=== PATIENT | female | born 1955 | race Caucasian/White ===

== ENCOUNTER 2016-07-05 09:31 | Emergency (ER) | payer BC ==
--- NOTE | 2016-07-05 10:02 | EDM.PDOC ---
ED HPI DIZZINESS - General Chief Complaint: Genitourinary Problem Stated Complaint: LIMITED MOBILITY Time Seen by Provider: 07/05/16 09:53 Source of Information: Reports: Patient (patient is not very verbal, most of the history obtained today is from her ), Family (), RN notes reviewed - History of Present Illness INITIAL COMMENTS - FREE TEXT/NARRATIVE: 61-year-old female brought in by with concerns of possible bladder infection. She has not voided much in the last 12-24 hours. She does have history of bladder infection. She is apparently having some lower bladder pressure or discomfort. states that this she also seems more unsteady on her feet, less energy than usual. Unfortunately her health has really declined over the past year or 2. she ambulates with a walker. Unfortunately she spends a lot of time in bed or sitting. Her is providing total care. SHe does have history of depression, perhaps additional mental health illnesses well. Looking at her meds she is very heavily medicated. states meds have been prescribed by local psychiatrist at [facility]. - Related Data Allergies/ADRs: Allergies Allergy/AdvReac Type Severity Reaction Status Date / Time celecoxib [From Celebrex] Allergy Other Verified 07/05/16 09:40 clarithromycin [From Biaxin] Allergy Other Verified 07/05/16 09:40 lisinopril Allergy Cough Verified 07/05/16 09:40 HCTZ Allergy Other Uncoded 07/05/16 09:53 Home Meds: Home Meds traZODone 150 mg PO BEDTIME 02/13/16 [History] Amitriptyline HCl 75 mg PO QPM 06/19/16 [History] ClonazePAM [KlonoPIN] 1.5 mg PO BID 06/19/16 [History] ClonazePAM [KlonoPIN] 2 mg PO QPM 06/19/16 [History] Losartan [Cozaar] 50 mg PO DAILY 06/19/16 [History] PARoxetine HCl [Paroxetine HCl] 30 mg PO DAILY 06/19/16 [History] Cholecalciferol (Vitamin D3) [Vitamin D3] 2,000 unit PO DAILY 07/05/16 [History] Fish Oil/[place]-3 Fatty Acids [Fish Oil 1,000 MG] 1,000 mg PO BID 07/05/16 [ History] Lutein/Minerals/Vit A,C & E [Ocuvite] 1 tab PO DAILY 07/05/16 [History] Past Medical History HEENT History: Reports: Impaired vision Other HEENT History: Wears glasses Cardiovascular History: Reports: High cholesterol, 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: Psychiatric History: Reports: Anxiety, Depression, Emotional problems - Past Surgical History Female Surgical History: Reports: section Social & Family History - Family History Family Medical History: Noncontributory - Tobacco Use Smoking Status *Q: Never Smoker Used Tobacco, but Quit: Yes Second Hand Smoke Exposure: No - Caffeine Use Caffeine Use: Reports: Coffee - Recreational Drug Use Recreational Drug Use: No - Living Situation & Occupation Living situation: Reports: , with spouse 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) ED ROS GENERAL - Review of Systems Review Of Systems: See Below Constitutional: Denies: fever, chills HEENT: Reports: No symptoms Respiratory: Denies: shortness of breath, hemoptysis GI/Abdominal: Denies: Abdominal pain, Nausea, Vomiting Musculoskeletal: Denies: neck pain, joint pain Skin: Denies: rash Neurological: Reports: dizziness, weakness (generalized) ED EXAM, DIZZINESS - Physical Exam Exam: See Below General Appearance: alert, other (not very verbal, does answer a few yes and no questions, content to let her do most of the talking) Eye Exam: bilateral eye: PERRL Throat/Mouth: Normal inspection, Normal oropharynx Head Exam: atraumatic Neck: normal inspection Respiratory/Chest: no respiratory distress, lungs clear, normal breath sounds Cardiovascular: regular rate, rhythm GI/Abdominal: soft, non tender. No: guarding Neurological: no motor/sensory deficits, other (awake, cooperative with exam) Extremities: normal inspection, normal range of motion. No: pedal edema Psychiatric: flat affect Skin Exam: Warm, Dry, Normal color Course - Vital Signs Last Recorded V/S: Last Vital Signs Temp 97.1 F 07/05/16 09:40 Pulse 68 07/05/16 12:10 Resp 15 07/05/16 12:10 BP 140/70 07/05/16 12:10 Pulse Ox 97 07/05/16 12:10 - Orders/Labs/Meds Orders: Active Orders 24 hr Category Date Time Status Tovar Catheter Insertion [Insert Urinary Catheter] [OM. Care 07/05/16 11:05 Ordered PC] Q24H Urinary Catheter Assessment [RC] ASDIRECTED Care 07/05/16 11:24 Active Labs: Laboratory Tests 07/05/16 07/05/16 07/05/16 Range/Units 10:11 10:11 10:20 WBC 5.33 (3.98-10.04) K/mm3 RBC 4.55 (3.98-5.22) M/mm3 Hgb 14.3 (11.2-15.7) gm/L Hct 43.7 (34.1-44.9) % MCV 96.0 H (79.4-94.8) fl MCH 31.4 (25.6-32.2) pg MCHC 32.7 (32.2-35.5) g/dl RDW Std Deviation 46.1 (36.4-46.3) fL Plt Count 282 (182-369) K/mm3 MPV 10.4 (9.4-12.3) fl Neut % (Auto) 62.6 (34.0-71.1) % Lymph % (Auto) 25.9 (19.3-51.7) % Mckean % (Auto) 7.7 (4.7-12.5) % Eos % (Auto) 3.0 (0.7-5.8) Baso % (Auto) 0.6 (0.1-1.2) % Neut # 3.34 (1.56-6.13) K/mm3 Lymph # 1.38 (1.18-3.74) K/mm3 Mckean # 0.41 H (0.24-0.36) K/mm3 Eos # 0.16 (0.04-0.36) K/mm3 Baso # 0.03 (0.01-0.08) K/mm3 Sodium 140 (136-145) mEq/L Potassium 4.2 (3.5-5.1) mEq/L Chloride 105 (98-107) mEq/L Carbon Dioxide 28 (21-32) mEq/L Anion Gap 11.2 (5-15) BUN 15 (7-18) mg/dL Creatinine 0.7 (0.55-1.02) mg/dL Est Cr Clr Drug Dosing 74.72 mL/min Estimated GFR (MDRD) > 60 (>60) mL/min BUN/Creatinine Ratio 21.4 H (14-18) Glucose 98 (74-106) mg/dL Calcium 9.3 (8.5-10.1) mg/dL Total Bilirubin 0.5 (0.2-1.0) mg/dL AST 12 L (15-37) U/L ALT 21 (14-59) U/L Alkaline Phosphatase 71 (46-116) U/L Total Protein 7.1 (6.4-8.2) g/dl Albumin 3.6 (3.4-5.0) g/dl Globulin 3.5 gm/dL Albumin/Globulin Ratio 1.0 (1-2) Urine Color Yellow (Yellow) Urine Appearance Clear (Clear) Urine pH 7.0 (5.0-8.0) Ur Specific [place] 1.025 (1.005-1.030) Urine Protein Trace H (Negative) Urine Glucose (UA) Negative (Negative) Urine Ketones Trace H (Negative) Urine Occult Blood Negative (Negative) Urine Nitrite Negative (Negative) Urine Bilirubin Negative (Negative) Urine Urobilinogen 0.2 (0.2-1.0) Ur Leukocyte Esterase Negative (Negative) Urine RBC 0-5 (0-5) /hpf Urine WBC 0-5 (0-5) /hpf Ur Squamous Epith Cells 0-5 (0-5) /hpf Urine Bacteria Few (FEW) /hpf Urine Mucus Few (FEW) /hpf - Re-Assessments/Exams Free Text/Narrative Re-Assessment/Exam: 07/05/16 13:42. her urinalysis I had ordered catheter UA with anticipated difficulty providing a sterile specimen on her own. Her nurses got about 900 cc out when I have them remove the catheter. Bladder scan showed that she still had 6 700 cc of urine in the bladder. We waited 15 minutes and then inserted a Tovar, further removing 250 cc of urine about every 15 minutes. We left the Tovar in place to allow her bladder to shrink down over the next few days. Suspect her urinary retention is medication related. She's on very high dose of klonopin and then also taking amitriptyline, trazodone at bedtime in addition to her other medications. I visited with her and some of her lethargy, drowsiness and weakness is almost for sure related to medication effect. We are going to try stopping her afternoon dose of the klonapin and move her bedtime dose each up to 6:00. And then have trazodone at bedtime if needed. She was on a total of 5 mg klonapin daily plus 150 mg trazodone at bedtime in addition to her other meds. We'll send her home with the indwelling Tovar with a leg bag. SHe does use a walker for ambulation. SHe has a followup appointment with her Psychiatrist this coming Thursday 3 days from now. Discharge instructions as documented Departure - Departure Time of Disposition: 12:05 Disposition: Home, Self-Care 01 Condition: fair Clinical Impression: Urinary retention Instructions: Acute Urinary Retention, Female, [id number] Referrals: Amanda Herman, TELLER MANAGER [Primary Care Provider] - Forms: ED Department Discharge Additional Instructions: with the urinary retention discovered today it will be best to have an indwelling Tovar catheter for now, drain at 2-3 times daily as needed. Followup clinic Thursday or Thursday for planned catheter removal, continue to drink plenty of water, eat regular meals and snacks to maintain nutrition, continue to use walker when standing or walking. stop the 2:00 dose of the Klonopin as Jayashree does appear to be overmedicated at this time. You can have her take the evening dose of Clonopin at around 6 PM and then the trazodone at bedtime if needed for sleep. Followup with Dr. Ramachandran Thursday as planned, return to ED as needed - My Orders Last 24 Hours: My Active Orders 07/05/16 11:05 Tovar Catheter Insertion [Insert Urinary Catheter] [OM.PC] Q24H 07/05/16 11:24 Urinary Catheter Assessment [RC] ASDIRECTED - Assessment/Plan Last 24 Hours: My Active Orders 07/05/16 11:05 Tovar Catheter Insertion [Insert Urinary Catheter] [OM.PC] Q24H 07/05/16 11:24 Urinary Catheter Assessment [RC] ASDIRECTED
[2016-07-05 12:41] VITALS: BP 140/70
== END 2016-07-05 12:18 | disposition home or self-care (01) ==
LOC: JD.ED 09:31
DX: R33.9 Retention of urine, unspecified (principal); R42 Dizziness and giddiness; E78.00 Pure hypercholesterolemia, unspecified; I10 Essential (primary) hypertension; R53.1 Weakness; Z88.6 Allergy status to analgesic agent; Z88.1 Allergy status to other antibiotic agents
CPT/HCPCS: 36415; 51701; 51702; 51798; 80053; 81001; 85025; 99284; P9612; 99282

== ENCOUNTER 2016-07-05 17:49 | Emergency (ER) | payer BC ==
[2016-07-05 18:09] VITALS: BP 145/83
[2016-07-05] MEDS ORDERED: Sodium Chloride 0.9% 10 ML Syringe FLUSH PRN (18:16)
--- NOTE | 2016-07-05 18:44 | EDM.PDOC ---
ED HPI SEIZURE COMPLAINT - General Chief Complaint: Neurological Problem Stated Complaint: POSS SEIZURE AT HOME Time Seen by Provider: 07/05/16 17:52 Source of Information: Reports: Patient, Family (spouse), Old records, RN notes reviewed - History of Present Illness INITIAL COMMENTS - FREE TEXT/NARRATIVE: 61-year-old female brought back to the ED this evening by after suffering what appeared to be 2 brief seizures while at home. She had been a patient here in the ED this past morning brought in for evaluation of increased weakness, nonspecific dizziness and continued deterioration of her mental and physical health over the past couple of months and to some extent over the past 6-12 months. This past morning her lab work was normal. However she was found to have urinary retention. A Tovar catheter was placed and she did go home with a leg bag. See that record for details. This afternoon about 45 minutes ago she was sitting in her recliner when her states her body "stiffened and then there was jerking of her arms and legs for about 15-30 seconds, a brief pause and then this did occur again in similar fashion. She had no tongue injury. He states that she has had tremor type symptoms in the past, but to his knowledge she has never had a prior seizure. She was admitted to [facility] about 2 weeks ago for evaluation of her progressive weakness as well as diminishing speech and mental health status.He states that she did have head CT, MRI and did have a Neurology consultation. He states that they really did not come up with any definitive diagnosis. at home today after discharge in the ED she did eat a six-inch sub sandwich. She has been drinking some fluid. He states that she has been able to stand with the help of walker and him assisting but that this has been difficult, in general her overall strength, speach and cognitive ability has markedly declined from her hospital admission 2 weeks ago. - Related Data Allergies/ADRs: Allergies Allergy/AdvReac Type Severity Reaction Status Date / Time celecoxib [From Celebrex] Allergy Other Verified 07/05/16 17:58 clarithromycin [From Biaxin] Allergy Other Verified 07/05/16 17:58 lisinopril Allergy Cough Verified 07/05/16 17:58 HCTZ Allergy Other Uncoded 07/05/16 09:53 Home Meds: Home Meds traZODone 150 mg PO BEDTIME 02/13/16 [History] Amitriptyline HCl 75 mg PO QPM 06/19/16 [History] ClonazePAM [KlonoPIN] 1.5 mg PO BID 06/19/16 [History] ClonazePAM [KlonoPIN] 2 mg PO QPM 06/19/16 [History] Losartan [Cozaar] 50 mg PO DAILY 06/19/16 [History] PARoxetine HCl [Paroxetine HCl] 30 mg PO DAILY 06/19/16 [History] Cholecalciferol (Vitamin D3) [Vitamin D3] 2,000 unit PO DAILY 07/05/16 [History] Fish Oil/[place]-3 Fatty Acids [Fish Oil 1,000 MG] 1,000 mg PO BID 07/05/16 [ History] Lutein/Minerals/Vit A,C & E [Ocuvite] 1 tab PO DAILY 07/05/16 [History] Past Medical History HEENT History: Reports: Impaired vision Other HEENT History: Wears glasses Cardiovascular History: Reports: High cholesterol, 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: Psychiatric History: Reports: Anxiety, Depression, Emotional problems - Past Surgical History Female Surgical History: Reports: section Social & Family History - Family History Family Medical History: Noncontributory - Tobacco Use Smoking Status *Q: Never Smoker Used Tobacco, but Quit: Yes Second Hand Smoke Exposure: No - Caffeine Use Caffeine Use: Reports: Coffee - Recreational Drug Use Recreational Drug Use: No - Living Situation & Occupation Living situation: Reports: , with spouse 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 Denies: numbness, tingling - Physical Exam Exam: See Below General Appearance: alert, anxious Eye Exam: bilateral eye: PERRL Nose: normal inspection Throat/Mouth: Normal inspection, Normal oropharynx. No: Evidence of tongue biting Head Exam: atraumatic Neck: supple Respiratory/Chest: no respiratory distress, lungs clear, normal breath sounds Cardiovascular: regular rate, rhythm GI/Abdominal: soft, non tender Neuro Exam (Abbreviated): alert, slow to respond (she is somewhat slow to respond verbally, does answer yes and no-type questions), other (she does have weakness of the upper and lower extremities) Back Exam: No: CVA tenderness (L), CVA tenderness (R) Extremities: No: leg pain, increased warmth, redness Psychiatric: depressed mood, flat affect Skin Exam: Warm, Dry, Normal color Course - Vital Signs Last Recorded V/S: Last Vital Signs Temp 97.6 F 07/05/16 17:58 Pulse 78 07/05/16 17:58 Resp 13 07/05/16 17:58 BP 145/83 H 07/05/16 17:58 Pulse Ox 96 07/05/16 17:58 - Orders/Labs/Meds Orders: Active Orders 24 hr Category Date Time Status POC Glucose [Blood Glucose Check, Bedside] [] ONETIME Care 07/05/16 18:16 Active Peripheral IV Care [RC] . DIRECTED Care 07/05/16 18:17 Active Sodium Chloride 0.9% [Saline Flush] Med 07/05/16 18:16 Active 10 ml FLUSH ASDIRECTED PRN Peripheral IV Insertion Adult [OM.PC] Stat Oth 07/05/16 18:17 Ordered Medication Orders Sodium Chloride (Saline Flush) 10 ml FLUSH ASDIRECTED PRN PRN Reason: Keep Vein Open Last Admin: 07/05/16 18:40 Dose: 10 ml Labs: Laboratory Tests 07/05/16 07/05/16 Range/Units 10:11 18:34 POC Glucose 79 (70-105) mg/dL TSH 3rd Generation 1.173 (0.358-3.74) uIU/mL Meds: Medications Generic Name Dose Route Start Last Admin Trade Name Freq PRN Reason Stop Dose Admin Sodium Chloride 10 ml 07/05/16 18:16 07/05/16 18:40 Saline Flush FLUSH 10 ml ASDIRECTED PRN Administration Keep Vein Open - Re-Assessments/Exams Free Text/Narrative Re-Assessment/Exam: 07/05/16 19:37. do to her declining physical, speech and cognitive abilities and now what is described as generalized seizure activity I have made arrangements to transfer her back to [facility]. I discussed this with the Neurologist visitor information assistant and also Dr. Marquez, Hospitalist, accepting physician. She'll be transferred by ground ambulance. Departure - Departure Time of Disposition: 19:40 Disposition: DC/Tfer to [facility] 02 Condition: serious Clinical Impression: Generalized convulsive epilepsy, General weakness Depression Qualifiers: Depression Type: unspecified Qualified Code(s): F32.9 - Major depressive disorder, single episode, unspecified Forms: ED Department Discharge - My Orders Last 24 Hours: My Active Orders 07/05/16 18:16 POC Glucose [Blood Glucose Check, Bedside] [RC] ONETIME Sodium Chloride 0.9% [Saline Flush] 10 ml FLUSH ASDIRECTED PRN 07/05/16 18:17 Peripheral IV Care [RC] . DIRECTED Peripheral IV Insertion Adult [OM.PC] Stat - Assessment/Plan Last 24 Hours: My Active Orders 07/05/16 18:16 POC Glucose [Blood Glucose Check, Bedside] [RC] ONETIME Sodium Chloride 0.9% [Saline Flush] 10 ml FLUSH ASDIRECTED PRN 07/05/16 18:17 Peripheral IV Care [RC] . DIRECTED Peripheral IV Insertion Adult [OM.PC] Stat
--- NOTE | 2016-07-05 19:04 | CT ---
Head CT Technique: Multiple axial sections through the brain were obtained. Intravenous contrast was not utilized. Comparison: Previous head CT study of 02/14/16 is available. Findings: Ventricles along with basal cisterns and sulci over the convexities are within normal limits for the patient's age. No abnormal parenchymal densities are seen. No evidence of intracranial hemorrhage. No midline shift or mass effect is seen. Bone window settings were reviewed which shows the visualized mastoid and middle ear cavities to appear clear. Visualized paranasal sinuses are also clear. No acute calvarial abnormality is seen. Incidental note of mild hyperostosis interna frontalis which is a normal variant. Impression: 1. No acute abnormality is identified on noncontrast head CT study. No significant change is identified from previous exam. Diagnostic code #2
[2016-07-05] MEDS ORDERED: 50% Dextrose in Water 50 ML Syringe IVPUSH ONE (19:48)
[2016-07-05] MEDS ORDERED: Sodium Chloride 0.9% 1,000 ML IV SCH (20:00)
== END 2016-07-05 21:15 ==
LOC: JD.ED 17:49
DX: G40.409 Other generalized epilepsy and epileptic syndromes, not intractable, without status epilepticus (principal); R53.1 Weakness; F32.9 Major depressive disorder, single episode, unspecified; F41.9 Anxiety disorder, unspecified; E78.00 Pure hypercholesterolemia, unspecified; I10 Essential (primary) hypertension; Z79.899 Other long term (current) drug therapy; Z87.891 Personal history of nicotine dependence; Z88.1 Allergy status to other antibiotic agents; Z88.8 Allergy status to other drugs, medicaments and biological substances; R33.9 Retention of urine, unspecified; F80.2 Mixed receptive-expressive language disorder; R26.2 Difficulty in walking, not elsewhere classified
CPT/HCPCS: 36415; 70450; 82962; 84443; 96374; 99285; J7040; J7050; J7060

== ENCOUNTER 2016-09-21 12:49 | Emergency (ER) | payer BC ==
[2016-09-21] MEDS ORDERED: Sodium Chloride 0.9% 10 ML Syringe FLUSH PRN (13:00)
--- NOTE | 2016-09-21 13:24 | CT ---
Head CT Technique: Multiple axial sections through the brain were obtained. Intravenous contrast was not utilized. Comparison: Previous head CT study of 07/05/16. Findings: Ventricles along with basal cisterns and sulci over the convexities are within normal limits for the patient's age. No abnormal parenchymal densities are seen. No evidence of intracranial hemorrhage. No midline shift or mass effect is seen. Bone window settings were reviewed which shows no discrete calvarial abnormality. Visualized sinuses are clear. Impression: 1. No acute intracranial abnormality is appreciated. No significant change is identified from prior head CT exam. Diagnostic code #1
[2016-09-21] MEDS ORDERED: Acetaminophen 325 MG Tab PO ONE (15:10)
--- NOTE | 2016-09-21 15:27 | EDM.PDOC ---
ED HPI GENERAL MEDICAL PROBLEM - General Chief Complaint: Neuro Symptoms/Deficits Stated Complaint: stroke symptoms Time Seen by Provider: 09/21/16 13:00 Source of Information: Reports: Patient, Family History Limitations: Reports: No Limitations - History of Present Illness INITIAL COMMENTS - FREE TEXT/NARRATIVE: The patient presents with her for possible stroke. This morning the patient did not go to religious because her left leg hurt. When her got home at 1145am, she got up and helped make lunch and they ate. She could not lift the fork with either hand and she had some facial droop. The patient brought her in. She complains of a headache. She has no chest pain or shortness of breath. She has no abdominal pain, nausea or vomiting. She has a history of psychiatric problems and she overdosed last year. The last time she was known well was 1200. Onset: Sudden Duration: Hour(s): Location: Reports: Face, Generalized Severity: Moderate Improves with: Reports: None Worsens with: Reports: None Context: Reports: Other (They were sitting down to eat) Associated Symptoms: Reports: Headaches. Denies: Chest Pain, Cough, Nausea/ Vomiting, Shortness of Breath Headache Pain Score (Numeric/FACES): 4 - Related Data Allergies Allergy/AdvReac Type Severity Reaction Status Date / Time celecoxib [From Celebrex] Allergy Other Verified 07/05/16 17:58 clarithromycin [From Biaxin] Allergy Other Verified 07/05/16 17:58 lisinopril Allergy Cough Verified 07/05/16 17:58 HCTZ Allergy Other Uncoded 07/05/16 09:53 Home Meds: Home Meds Losartan [Cozaar] 100 mg PO DAILY 06/19/16 [History] PARoxetine HCl [Paroxetine HCl] 40 mg PO DAILY 06/19/16 [History] Cholecalciferol (Vitamin D3) [Vitamin D3] 2,000 unit PO DAILY 07/05/16 [History] Fish Oil/[place]-3 Fatty Acids [Fish Oil 1,000 MG] 1,000 mg PO BID 07/05/16 [ History] Lutein/Minerals/Vit A,C & E [Ocuvite] 1 tab PO DAILY 07/05/16 [History] LORazepam [Ativan] 2 mg PO TID 09/21/16 [History] Loxapine Succinate [Loxapine] 25 mg PO TID 09/21/16 [History] Nitrofurantoin [place]/Macrocryst [Macrobid] 100 mg PO BID #10 cap 09/21/16 [Rx] Propranolol [Inderal LA] 120 mg PO DAILY 09/21/16 [History] Past Medical History HEENT History: Reports: Impaired Vision Other HEENT History: wears eyeglasses Cardiovascular History: Reports: High Cholesterol, Hypertension Respiratory History: Reports: Pneumonia, Recurrent [employer] History: Reports: Psychiatric History: Reports: Anxiety, Depression, Emotional Problems Hematologic History: Reports: Anemia - Past Surgical History Female Surgical History: Reports: Breast Biopsy, Section, Other ( See Below) Other Female Surgeries/Procedures: two C-sections. Social & Family History - Family History Family Medical History: Noncontributory - Tobacco Use Smoking Status *Q: Never Smoker Used Tobacco, but Quit: Yes Second Hand Smoke Exposure: No - Caffeine Use Caffeine Use: Reports: Coffee - Recreational Drug Use Recreational Drug Use: No - Living Situation & Occupation Living situation: Reports: , with Spouse Occupation: Retired ED ROS GENERAL - Review of Systems Review Of Systems: See Below Constitutional: Reports: No Symptoms HEENT: Reports: No Symptoms Respiratory: Reports: No Symptoms Cardiovascular: Reports: No Symptoms Endocrine: Reports: No Symptoms GI/Abdominal: Reports: No Symptoms : Reports: No Symptoms Musculoskeletal: Reports: No Symptoms Skin: Reports: No Symptoms Neurological: Reports: Headache, Weakness (generalized) ED EXAM, NEURO - Physical Exam Exam: See Below Exam Limited By: No Limitations General Appearance: Alert, No Apparent Distress Ears: Normal External Exam Nose: Normal Inspection Head Exam: Atraumatic, Normocephalic Neck: Normal Inspection Respiratory/Chest: No Respiratory Distress, Lungs Clear, Normal Breath Sounds Cardiovascular: Regular Rate, Rhythm, No Edema, No Murmur GI/Abdominal: Soft, Non-Tender, No Organomegaly, No Mass Neurological: Alert, Oriented x 3, Other (Generalized weakness) EKG INTERPRETATION EKG Date: 09/21/16 Time: 13:10 Rhythm: NSR Rate (beats/min): 70 Clark: normal P-wave: present QRS: normal ST-T: normal QT: normal Course - Vital Signs Last Recorded V/S: Last Vital Signs Temp 98.5 F 09/21/16 16:04 Pulse 80 09/21/16 16:04 Resp 19 09/21/16 16:04 BP 132/74 09/21/16 16:04 Pulse Ox 94 L 09/21/16 16:04 - Orders/Labs/Meds Orders: Active Orders 24 hr Category Date Time Status Cardiac Monitoring [RC] . DIRECTED Care 09/21/16 13:00 Active EKG Documentation Completion [RC] STAT Care 09/21/16 13:01 Active Insert Tovar Catheter [Insert Urinary Catheter] [OM.PC] Care 09/21/16 14:30 Ordered Q24H Oxygen Therapy [RC] PRN Care 09/21/16 13:00 Active Peripheral IV Care [RC] . DIRECTED Care 09/21/16 13:01 Active Urinary Catheter Assessment [RC] ASDIRECTED Care 09/21/16 15:03 Active CULTURE URINE [RM] Stat Lab 09/21/16 14:35 Received Sodium Chloride 0.9% [Saline Flush] Med 09/21/16 13:00 Active 10 ml FLUSH ASDIRECTED PRN Peripheral IV Insertion Adult [OM.PC] Stat Oth 09/21/16 13:00 Ordered Medication Orders Sodium Chloride (Saline Flush) 10 ml FLUSH ASDIRECTED PRN PRN Reason: Keep Vein Open Last Admin: 09/21/16 13:25 Dose: 10 ml Labs: Laboratory Tests 09/21/16 09/21/16 09/21/16 Range/Units 13:25 13:25 13:25 WBC 7.30 (3.98-10.04) K/mm3 RBC 4.53 (3.98-5.22) M/mm3 Hgb 14.2 (11.2-15.7) gm/L Hct 43.1 (34.1-44.9) % MCV 95.1 H (79.4-94.8) fl MCH 31.3 (25.6-32.2) pg MCHC 32.9 (32.2-35.5) g/dl RDW Std Deviation 50.3 H (36.4-46.3) fL Plt Count 299 (182-369) K/mm3 MPV 9.9 (9.4-12.3) fl Neut % (Auto) 61.3 (34.0-71.1) % Lymph % (Auto) 28.8 (19.3-51.7) % Sutton % (Auto) 6.2 (4.7-12.5) % Eos % (Auto) 3.2 (0.7-5.8) Baso % (Auto) 0.4 (0.1-1.2) % Neut # (Auto) 4.48 (1.56-6.13) K/mm3 Lymph # (Auto) 2.10 (1.18-3.74) K/mm3 Sutton # (Auto) 0.45 H (0.24-0.36) K/mm3 Eos # (Auto) 0.23 (0.04-0.36) K/mm3 Baso # (Auto) 0.03 (0.01-0.08) K/mm3 PT 10.0 (8.0-13.0) SECONDS INR 0.92 APTT 25 (22-36) SECONDS Sodium 142 (136-145) mEq/L Potassium 3.8 (3.5-5.1) mEq/L Chloride 106 (98-107) mEq/L Carbon Dioxide 26 (21-32) mEq/L Anion Gap 13.8 (5-15) BUN 19 H (7-18) mg/dL Creatinine 0.8 (0.55-1.02) mg/dL Est Cr Clr Drug Dosing TNP Estimated GFR (MDRD) > 60 (>60) mL/min BUN/Creatinine Ratio 23.8 H (14-18) Glucose 111 H (74-106) mg/dL Calcium 9.8 (8.5-10.1) mg/dL Total Bilirubin 0.6 (0.2-1.0) mg/dL AST 14 L (15-37) U/L ALT 28 (14-59) U/L Alkaline Phosphatase 84 (46-116) U/L Troponin I < 0.017 (0.00-0.056) ng/mL Total Protein 7.2 (6.4-8.2) g/dl Albumin 3.2 L (3.4-5.0) g/dl Globulin 4.0 gm/dL Albumin/Globulin Ratio 0.8 L (1-2) Urine Color (Yellow) Urine Appearance (Clear) Urine pH (5.0-8.0) Ur Specific [place] (1.005-1.030) Urine Protein (Negative) Urine Glucose (UA) (Negative) Urine Ketones (Negative) Urine Occult Blood (Negative) Urine Nitrite (Negative) Urine Bilirubin (Negative) Urine Urobilinogen (0.2-1.0) Ur Leukocyte Esterase (Negative) Urine RBC (0-5) /hpf Urine WBC (0-5) /hpf Ur Epithelial Cells (0-5) /hpf Urine Bacteria (FEW) /hpf Urine Mucus (FEW) /hpf Urine Opiates Screen (NEGATIVE) Ur Buprenorphine Scrn (NEGATIVE) Ur Oxycodone Screen (NEGATIVE) Urine Methadone Screen (NEGATIVE) Ur Propoxyphene Screen (NEGATIVE) Ur Barbiturates Screen (NEGATIVE) Ur Tricyclics Screen (NEGATIVE) Ur Phencyclidine Scrn (NEGATIVE) Ur Amphetamine Screen (NEGATIVE) U Methamphetamines Scrn (NEGATIVE) U Benzodiazepines Scrn (NEGATIVE) U Cocaine Metab Screen (NEGATIVE) U Marijuana (THC) Screen (NEGATIVE) Ethyl Alcohol 0.00 (0.00) gm% 09/21/16 09/21/16 Range/Units 14:35 14:35 WBC (3.98-10.04) K/mm3 RBC (3.98-5.22) M/mm3 Hgb (11.2-15.7) gm/L Hct (34.1-44.9) % MCV (79.4-94.8) fl MCH (25.6-32.2) pg MCHC (32.2-35.5) g/dl RDW Std Deviation (36.4-46.3) fL Plt Count (182-369) K/mm3 MPV (9.4-12.3) fl Neut % (Auto) (34.0-71.1) % Lymph % (Auto) (19.3-51.7) % [place] % (Auto) (4.7-12.5) % Eos % (Auto) (0.7-5.8) Baso % (Auto) (0.1-1.2) % Neut # (Auto) (1.56-6.13) K/mm3 Lymph # (Auto) (1.18-3.74) K/mm3 [place] # (Auto) (0.24-0.36) K/mm3 Eos # (Auto) (0.04-0.36) K/mm3 Baso # (Auto) (0.01-0.08) K/mm3 PT (8.0-13.0) SECONDS INR APTT (22-36) SECONDS Sodium (136-145) mEq/L Potassium (3.5-5.1) mEq/L Chloride (98-107) mEq/L Carbon Dioxide (21-32) mEq/L Anion Gap (5-15) BUN (7-18) mg/dL Creatinine (0.55-1.02) mg/dL Est Cr Clr Drug Dosing Estimated GFR (MDRD) (>60) mL/min BUN/Creatinine Ratio (14-18) Glucose (74-106) mg/dL Calcium (8.5-10.1) mg/dL Total Bilirubin (0.2-1.0) mg/dL AST (15-37) U/L ALT (14-59) U/L Alkaline Phosphatase (46-116) U/L Troponin I (0.00-0.056) ng/mL Total Protein (6.4-8.2) g/dl Albumin (3.4-5.0) g/dl Globulin gm/dL Albumin/Globulin Ratio (1-2) Urine Color Yellow (Yellow) Urine Appearance Clear (Clear) Urine pH 6.0 (5.0-8.0) Ur Specific [place] 1.020 (1.005-1.030) Urine Protein Negative (Negative) Urine Glucose (UA) Negative (Negative) Urine Ketones Negative (Negative) Urine Occult Blood Negative (Negative) Urine Nitrite Positive H (Negative) Urine Bilirubin Negative (Negative) Urine Urobilinogen 0.2 (0.2-1.0) Ur Leukocyte Esterase Negative (Negative) Urine RBC Not seen (0-5) /hpf Urine WBC 0-5 (0-5) /hpf Ur Epithelial Cells 0-5 (0-5) /hpf Urine Bacteria Many H (FEW) /hpf Urine Mucus Not seen (FEW) /hpf Urine Opiates Screen Negative (NEGATIVE) Ur Buprenorphine Scrn Negative (NEGATIVE) Ur Oxycodone Screen Negative (NEGATIVE) Urine Methadone Screen Negative (NEGATIVE) Ur Propoxyphene Screen Negative (NEGATIVE) Ur Barbiturates Screen Negative (NEGATIVE) Ur Tricyclics Screen Negative (NEGATIVE) Ur Phencyclidine Scrn Negative (NEGATIVE) Ur Amphetamine Screen Negative (NEGATIVE) U Methamphetamines Scrn Negative (NEGATIVE) U Benzodiazepines Scrn Presumptive positive H (NEGATIVE) U Cocaine Metab Screen Negative (NEGATIVE) U Marijuana (THC) Screen Negative (NEGATIVE) Ethyl Alcohol (0.00) gm% Meds: Medications Generic Name Dose Route Start Last Admin Trade Name Freq PRN Reason Stop Dose Admin Sodium Chloride 10 ml 09/21/16 13:00 09/21/16 13:25 Saline Flush FLUSH 10 ml ASDIRECTED PRN Administration Keep Vein Open Discontinued Medications Generic Name Dose Route Start Last Admin Trade Name Galindo PRN Reason Stop Dose Admin Acetaminophen 975 mg 09/21/16 15:10 09/21/16 15:26 Tylenol PO 09/21/16 15:11 975 mg NOW ONE Administration Ceftriaxone Sodium 2 gm/ 100 mls @ 200 mls/hr 09/21/16 15:46 09/21/16 16:02 Sodium Chloride IV 09/21/16 16:15 200 mls/hr ONETIME ONE Administration - Re-Assessments/Exams Free Text/Narrative Re-Assessment/Exam: 09/21/16 15:28 I ordered an IV saline lock, EKG, CT of her head, labs and UA. 09/21/16 16:[address] of her head shows nothing acute. Her EKG shows a NSR with no acute changes. Her CBC was negative. Her PT and PTT are negative. Her troponin is negative. Her UA was positive for nitrites with many bacteria. Her UDS was positive for benzos. Her ETOH is negative. She has a UTI. I will give her some rocephin 2 grams IVPB and get her on macrobid. Departure - Departure Time of Disposition: 16:35 Disposition: Home, Self-Care 01 Condition: good Clinical Impression: Weakness UTI (urinary tract infection) Qualifiers: Urinary tract infection type: acute cystitis Hematuria presence: without hematuria Qualified Code(s): N30.00 - Acute cystitis without hematuria - Discharge Information Prescriptions: Nitrofurantoin [place]/Macrocryst [Macrobid] 100 mg PO BID #10 cap Referrals: Amanda Herman, [employer] [Primary Care Provider] - 1 Week Forms: ED Department Discharge Additional Instructions: Drink plenty of fluids. Take the macrobid 2 times per day for 5 days. - My Orders Last 24 Hours: My Active Orders 09/21/16 13:00 Cardiac Monitoring [RC] . DIRECTED Oxygen Therapy [RC] PRN Sodium Chloride 0.9% [Saline Flush] 10 ml FLUSH ASDIRECTED PRN Peripheral IV Insertion Adult [OM.PC] Stat 09/21/16 13:01 EKG Documentation Completion [RC] STAT Peripheral IV Care [RC] . DIRECTED 09/21/16 14:30 Insert Tovar Catheter [Insert Urinary Catheter] [OM.PC] Q24H 09/21/16 14:35 CULTURE URINE [RM] Stat 09/21/16 15:03 Urinary Catheter Assessment [RC] ASDIRECTED - Assessment/Plan Last 24 Hours: My Active Orders 09/21/16 13:00 Cardiac Monitoring [RC] . DIRECTED Oxygen Therapy [RC] PRN Sodium Chloride 0.9% [Saline Flush] 10 ml FLUSH ASDIRECTED PRN Peripheral IV Insertion Adult [OM.PC] Stat 09/21/16 13:01 EKG Documentation Completion [RC] STAT Peripheral IV Care [RC] . DIRECTED 09/21/16 14:30 Insert Tovar Catheter [Insert Urinary Catheter] [OM.PC] Q24H 09/21/16 14:35 CULTURE URINE [RM] Stat 09/21/16 15:03 Urinary Catheter Assessment [RC] ASDIRECTED
[2016-09-21] MEDS ORDERED: cefTRIAXone 2 GM in Sodium Chloride 0.9% 100 ML IV ONE (15:46)
[2016-09-21 17:05] VITALS: BP 138/80
== END 2016-09-21 16:50 | disposition home or self-care (01) ==
LOC: JD.ED 12:49
DX: R53.1 Weakness (principal); N30.00 Acute cystitis without hematuria; I10 Essential (primary) hypertension; E78.00 Pure hypercholesterolemia, unspecified; F41.9 Anxiety disorder, unspecified; F32.9 Major depressive disorder, single episode, unspecified; Z98.890 Other specified postprocedural states; Z79.899 Other long term (current) drug therapy; Z88.8 Allergy status to other drugs, medicaments and biological substances
CPT/HCPCS: 36415; 70450; 80053; 80306; 81001; 84484; 85025; 85610; 85730; 87086; 87088; 87186; 93005; 96365; 99285; A9270; G0480; J0696; J7030; J7050; P9612; 99284

== ENCOUNTER 2016-09-26 17:26 | Emergency (ER) | payer BC ==
[2016-09-26] MEDS ORDERED: Sodium Chloride 0.9% 1,000 ML IV STA (18:13)
[2016-09-26] MEDS ORDERED: Sodium Chloride 0.9% 10 ML Syringe FLUSH PRN (18:13)
[2016-09-26] MEDS ORDERED: Ondansetron 4 MG/2 ML SDV IVPUSH ONE ×2 (18:15→19:20)
[2016-09-26] MEDS ORDERED: HYDROmorphone 0.5 MG/0.5 ML Syringe IVPUSH ONE (18:15)
[2016-09-26] MEDS ORDERED: Iopamidol 612 MG/ML 150 ML Bottle IVPUSH ONE (18:24)
[2016-09-26] MEDS ORDERED: Diatrizoate Meglumine/Diatrizoate Sodium 37% 120 ML Bottle PO ONE (18:27)
[2016-09-26] MEDS: Sodium Chloride 0.9% 10 ML Syringe FLUSH PRN ×2 (18:35→19:38)
--- NOTE | 2016-09-26 20:03 | CT ---
CT abdomen and pelvis Technique: Multiple axial sections were obtained from above the dome of the diaphragm inferiorly through the pubic symphysis. Intravenous and oral contrast was utilized. Delayed images were obtained through the bladder. Comparison: Previous CT abdomen exam of 03/30/12 is available. Findings: Visualized lung bases shows incidental dependent atelectasis. Liver shows no focal abnormality. Spleen appears within normal limits. Adrenal glands show no nodule. Gallbladder shows no calcified gallstones. Kidneys show symmetric contrast enhancement without hydronephrosis or mass. Aorta shows no aneurysmal dilatation. No retroperitoneal adenopathy is seen. No aneurysmal dilatation is seen. Pancreas shows slightly nodular appearance to the tail which appears stable from previous exam. Appendix is seen which appears normal. No pelvic mass or adenopathy is identified. Delayed images shows contrast within the distal ureters and within the bladder. Bone window settings were reviewed which show spondylolisthesis at L5-S1. This appears as a chronic finding and is due to mostly degenerative apophyseal changes although minimal spondylolytic defects are seen. Other areas of disc space narrowing and vacuum phenomena is seen throughout the thoracic and lumbar spine. Mild increased stool is seen throughout colon. Impression: 1. Mild increased stool within colon and other incidental findings as noted above. Nothing acute is appreciated on CT study of the abdomen and pelvis. Diagnostic code #2
--- NOTE | 2016-09-26 20:30 | EDM.PDOC ---
ED HPI GENERAL MEDICAL PROBLEM - General Chief Complaint: Abdominal Pain Stated Complaint: ABDOMINAL PAIN Time Seen by Provider: 09/26/16 18:08 Source of Information: Reports: Patient History Limitations: Reports: No Limitations - History of Present Illness INITIAL COMMENTS - FREE TEXT/NARRATIVE: Patient is a 61-year-old female presents to the ED complaining of one episode of black her stools at approximately 1500 hrs. today. States earlier today she came dizzy with standing and almost passed out. Patient feels bloated and having right-sided abdominal pain. States it started today and is progressively got worse.she has been mildly nauseated with no vomiting. Denies any fever/ chills, painful urination, back pain, shortness breath, chest pain, or any additional complaints. the patient did contact her prior care provider today and was discharged to go to the ED for further evaluation with concerns of patient may have appendicitis. Patient has been taking hydrocodone for back pain. This is a new prescription. States she has been mildly constipated. Right Abdomen Pain Score (Numeric/FACES): 6 - Related Data Allergies Allergy/AdvReac Type Severity Reaction Status Date / Time celecoxib [From Celebrex] Allergy Other Verified 09/26/16 19:33 clarithromycin [From Biaxin] Allergy Other Verified 09/26/16 19:33 lisinopril Allergy Cough Verified 09/26/16 19:33 HCTZ Allergy Other Uncoded 09/26/16 19:33 Home Meds: Home Meds Losartan [Cozaar] 100 mg PO DAILY 06/19/16 [History] PARoxetine HCl [Paroxetine HCl] 40 mg PO DAILY 06/19/16 [History] Cholecalciferol (Vitamin D3) [Vitamin D3] 2,000 unit PO DAILY 07/05/16 [History] Fish Oil/[place]-3 Fatty Acids [Fish Oil 1,000 MG] 1,000 mg PO BID 07/05/16 [ History] Lutein/Minerals/Vit A,C & E [Ocuvite] 1 tab PO DAILY 07/05/16 [History] LORazepam [Ativan] 2 mg PO TID 09/21/16 [History] Loxapine Succinate [Loxapine] 25 mg PO TID 09/21/16 [History] Nitrofurantoin [place]/Macrocryst [Macrobid] 100 mg PO BID #10 cap 09/21/16 [Rx] Propranolol [Inderal LA] 120 mg PO DAILY 09/21/16 [History] Hydrocodone/Acetaminophen [Hydrocodon-Acetaminophn 10-325] 1 tab PO Q6HR PRN 06/13 [History] Past Medical History HEENT History: Reports: Impaired Vision Other HEENT History: wears eyeglasses Cardiovascular History: Reports: High Cholesterol, Hypertension Respiratory History: Reports: Pneumonia, Recurrent FOCUSER History: Reports: Psychiatric History: Reports: Anxiety, Depression, Emotional Problems Hematologic History: Reports: Anemia - Past Surgical History Female Surgical History: Reports: Breast Biopsy, Section, Other ( See Below) Other Female Surgeries/Procedures: two C-sections. Social & Family History - Family History Family Medical History: Noncontributory - Tobacco Use Smoking Status *Q: Never Smoker Used Tobacco, but Quit: Yes Second Hand Smoke Exposure: No - Caffeine Use Caffeine Use: Reports: Coffee - Recreational Drug Use Recreational Drug Use: No - Living Situation & Occupation Living situation: Reports: , with Spouse Occupation: Retired ED ROS GENERAL - Review of Systems Review Of Systems: ROS reveals no pertinent complaints other than HPI. ED EXAM, GI/ABD - Physical Exam Exam: See Below Exam Limited By: No Limitations General Appearance: Alert, WD/WN, No Apparent Distress Ears: Hearing Grossly Normal Nose: Normal Inspection Throat/Mouth: Normal Voice, No Airway Compromise Neck: Normal Inspection, Supple Respiratory/Chest: No Respiratory Distress, Lungs Clear, Normal Breath Sounds, No Accessory Muscle Use Cardiovascular: Normal Peripheral Pulses, Regular Rate, Rhythm GI/Abdominal: Normal Bowel Sounds, Soft, No Organomegaly, No Distention, No Mass , Tenderness (generalized). No: McBurney's Sign, Driscoll's Sign (Female) Exam: Deferred Rectal (Female) Exam: No: Heme - Stool Back Exam: Normal Inspection. No: CVA Tenderness (L), CVA Tenderness (R) Extremities: Normal Inspection, Non-Tender, No Pedal Edema Neurological: Alert, Oriented, CN II-XII Intact, Normal Cognition, No Motor/ Sensory Deficits Psychiatric: Flat Affect Skin Exam: Warm, Dry, Intact, Normal Color, No Rash Course - Vital Signs Last Recorded V/S: Last Vital Signs Temp 98.4 F 09/26/16 17:32 Pulse 80 09/26/16 17:32 Resp 15 09/26/16 17:32 BP Pulse Ox Orthostatic Blood Pressure [ 156/94 Sitting] Orthostatic Blood Pressure [ 154/85 Supine] - Orders/Labs/Meds Labs: Laboratory Tests 09/26/16 09/26/16 09/26/16 Range/Units 18:10 18:13 18:13 WBC 8.69 (3.98-10.04) K/mm3 RBC 4.30 (3.98-5.22) M/mm3 Hgb 13.6 (11.2-15.7) gm/L Hct 40.5 (34.1-44.9) % MCV 94.2 (79.4-94.8) fl MCH 31.6 (25.6-32.2) pg MCHC 33.6 (32.2-35.5) g/dl RDW Std Deviation 48.5 H (36.4-46.3) fL Plt Count 297 (182-369) K/mm3 MPV 10.0 (9.4-12.3) fl Neut % (Auto) 59.0 (34.0-71.1) % Lymph % (Auto) 30.5 (19.3-51.7) % [place] % (Auto) 6.9 (4.7-12.5) % Eos % (Auto) 3.2 (0.7-5.8) Baso % (Auto) 0.3 (0.1-1.2) % Neut # (Auto) 5.12 (1.56-6.13) K/mm3 Lymph # (Auto) 2.65 (1.18-3.74) K/mm3 [place] # (Auto) 0.60 H (0.24-0.36) K/mm3 Eos # (Auto) 0.28 (0.04-0.36) K/mm3 Baso # (Auto) 0.03 (0.01-0.08) K/mm3 Sodium 139 (136-145) mEq/L Potassium 3.9 (3.5-5.1) mEq/L Chloride 104 (98-107) mEq/L Carbon Dioxide 25 (21-32) mEq/L Anion Gap 13.9 (5-15) BUN 12 (7-18) mg/dL Creatinine 0.6 (0.55-1.02) mg/dL Est Cr Clr Drug Dosing TNP Estimated GFR (MDRD) > 60 (>60) mL/min BUN/Creatinine Ratio 20.0 H (14-18) Glucose 101 (74-106) mg/dL Calcium 8.9 (8.5-10.1) mg/dL Total Bilirubin 0.4 (0.2-1.0) mg/dL AST 17 (15-37) U/L ALT 26 (14-59) U/L Alkaline Phosphatase 78 (46-116) U/L Total Protein 7.0 (6.4-8.2) g/dl Albumin 3.3 L (3.4-5.0) g/dl Globulin 3.7 gm/dL Albumin/Globulin Ratio 0.9 L (1-2) Lipase 131 (73-393) U/L Urine Color Yellow (Yellow) Urine Appearance Clear (Clear) Urine pH 6.5 (5.0-8.0) Ur Specific [place] 1.010 (1.005-1.030) Urine Protein Negative (Negative) Urine Glucose (UA) Negative (Negative) Urine Ketones Negative (Negative) Urine Occult Blood Negative (Negative) Urine Nitrite Negative (Negative) Urine Bilirubin Negative (Negative) Urine Urobilinogen 0.2 (0.2-1.0) Ur Leukocyte Esterase Trace H (Negative) C.difficile [id number] C. difficile Tox (PCR) Blood Type Gel Antibody Screen 09/26/16 09/26/16 Range/Units 18:13 20:46 WBC (3.98-10.04) K/mm3 RBC (3.98-5.22) M/mm3 Hgb (11.2-15.7) gm/L Hct (34.1-44.9) % MCV (79.4-94.8) fl MCH (25.6-32.2) pg MCHC (32.2-35.5) g/dl RDW Std Deviation (36.4-46.3) fL Plt Count (182-369) K/mm3 MPV (9.4-12.3) fl Neut % (Auto) (34.0-71.1) % Lymph % (Auto) (19.3-51.7) % [place] % (Auto) (4.7-12.5) % Eos % (Auto) (0.7-5.8) Baso % (Auto) (0.1-1.2) % Neut # (Auto) (1.56-6.13) K/mm3 Lymph # (Auto) (1.18-3.74) K/mm3 [place] # (Auto) (0.24-0.36) K/mm3 Eos # (Auto) (0.04-0.36) K/mm3 Baso # (Auto) (0.01-0.08) K/mm3 Sodium (136-145) mEq/L Potassium (3.5-5.1) mEq/L Chloride (98-107) mEq/L Carbon Dioxide (21-32) mEq/L Anion Gap (5-15) BUN (7-18) mg/dL Creatinine (0.55-1.02) mg/dL Est Cr Clr Drug Dosing Estimated GFR (MDRD) (>60) mL/min BUN/Creatinine Ratio (14-18) Glucose (74-106) mg/dL Calcium (8.5-10.1) mg/dL Total Bilirubin (0.2-1.0) mg/dL AST (15-37) U/L ALT (14-59) U/L Alkaline Phosphatase (46-116) U/L Total Protein (6.4-8.2) g/dl Albumin (3.4-5.0) g/dl Globulin gm/dL Albumin/Globulin Ratio (1-2) Lipase (73-393) U/L Urine Color (Yellow) Urine Appearance (Clear) Urine pH (5.0-8.0) Ur Specific [place] (1.005-1.030) Urine Protein (Negative) Urine Glucose (UA) (Negative) Urine Ketones (Negative) Urine Occult Blood (Negative) Urine Nitrite (Negative) Urine Bilirubin (Negative) Urine Urobilinogen (0.2-1.0) Ur Leukocyte Esterase (Negative) C.difficile [id number] Presumptive negative C. difficile Tox (PCR) Negative Blood Type A POSITIVE Gel Antibody Screen Negative Meds: Medications Discontinued Medications Generic Name Dose Route Start Last Admin Trade Name Freq PRN Reason Stop Dose Admin Diatrizoate Meglum/Diatrizoate Sod 120 ml 09/26/16 18:27 09/26/16 19:38 Gastrografin 37% PO 09/26/16 18:28 90 ml ONETIME ONE Administration Hydromorphone HCl 0.5 mg 09/26/16 18:15 09/26/16 18:27 Dilaudid IVPUSH 09/26/16 18:16 0.5 mg ONETIME ONE Administration Sodium Chloride 1,000 mls @ 1,000 mls/hr 09/26/16 18:13 09/26/16 18:26 Normal Saline IV 09/26/16 19:12 1,000 mls/hr .BOLUS STA Administration Iopamidol 150 ml 09/26/16 18:24 09/26/16 19:38 Isovue-300 (61%) IVPUSH 09/26/16 18:25 100 ml ONETIME ONE Administration Ondansetron HCl 4 mg 09/26/16 18:15 09/26/16 18:25 Zofran IVPUSH 09/26/16 18:16 4 mg ONETIME ONE Administration Ondansetron HCl 4 mg 09/26/16 19:20 09/26/16 19:26 Zofran IVPUSH 09/26/16 19:21 4 mg ONETIME ONE Administration Sodium Chloride 10 ml 09/26/16 18:13 09/26/16 18:28 Saline Flush FLUSH 10 ml ASDIRECTED PRN Administration Keep Vein Open Sodium Chloride 10 ml 09/26/16 18:24 09/26/16 19:38 Saline Flush FLUSH 10 ml ONETIME PRN Administration IV FLUSH - Re-Assessments/Exams Free Text/Narrative Re-Assessment/Exam: Labs reviewed: essentially normal. CT abdomen and pelvis revealed mild increased stool within the colon and other insults findings as noted above. Nothing acute is appreciated on CT study of the abdomen. patient's had multiple stools since consuming contrast. nursing staff was concerned that she may have C. difficile since was green and watery and nature. C. difficile was ordered. This routes results are pending. X-ray results CT and labs with patient. Will discharge patient home with instructions. Most likely the constipation is associated with starting hydrocodone for back discomfort. Departure - Departure Time of Disposition: 22:41 Disposition: Home, Self-Care 01 Condition: good Clinical Impression: Constipation Qualifiers: Constipation type: slow transit constipation Qualified Code(s): K59.01 - Slow transit constipation Abdominal pain Qualifiers: Abdominal location: right lower quadrant Qualified Code(s): R10.31 - Right lower quadrant pain - Discharge Information Instructions: Abdominal Pain, Adult, [id number], Constipation, Adult, Easy-to -Read Referrals: Amanda Herman, EDUCATION CONSULTANT [Primary Care Provider] - Forms: ED Department Discharge Additional Instructions: As discussed abdominal pain appears to be associated with increased stool within the colon. Most likely this is secondary to starting hydrocodone which can slow the transit of stool through your colon. Thus suggest starting a stool softener such as MiraLax one cap full every day with copious amounts of water, increasing the fiber in your diet, and increasing exercise. Follow up with your primary care provider in the next week if symptoms persist. Return to the E.D. for any new or worsening symptoms.
== END 2016-09-26 22:55 | disposition home or self-care (01) ==
LOC: JD.ED 17:26
DX: K59.01 Slow transit constipation (principal); R10.31 Right lower quadrant pain; I10 Essential (primary) hypertension; E78.00 Pure hypercholesterolemia, unspecified; F41.8 Other specified anxiety disorders; Z98.890 Other specified postprocedural states; Z79.899 Other long term (current) drug therapy; Z87.891 Personal history of nicotine dependence; Z88.1 Allergy status to other antibiotic agents; Z88.8 Allergy status to other drugs, medicaments and biological substances
CPT/HCPCS: 36415; 74177; 80053; 81003; 83690; 85025; 86850; 86900; 86901; 87493; 96361; 96374; 96375; 96376; 99284; J1170; J2405; J7040; J7050; Q9963; Q9967

== ENCOUNTER 2016-10-21 10:18 | Emergency (ER) | payer BC ==
[2016-10-21 10:36] VITALS: BP 151/89
[2016-10-21] MEDS ORDERED: LORazepam 2 MG/ML MDV IM ONE ×2 (10:48→11:46)
[2016-10-21] MEDS ORDERED: Haloperidol Lactate 5 MG/ML SDV IM ONE (11:14)
[2016-10-21] MEDS ORDERED: diphenhydrAMINE 50 MG/ML SDV IM ONE (11:14)
[2016-10-21] MEDS ORDERED: diphenhydrAMINE 50 MG/ML SDV ONE (11:15)
[2016-10-21] MEDS ORDERED: Haloperidol Lactate 5 MG/ML SDV ONE (11:15)
--- NOTE | 2016-10-21 11:28 | EDM.PDOC ---
ED HPI GENERAL MEDICAL PROBLEM - General Chief Complaint: Behavioral/Psych Stated Complaint: PSYCH PROBLLEM Time Seen by Provider: 10/21/16 11:00 Source of Information: Reports: Patient, Other ([facility] staff) History Limitations: Reports: No Limitations - History of Present Illness INITIAL COMMENTS - FREE TEXT/NARRATIVE: 61-year-old female presents for evaluation and treatment of suicidal ideation and plan. Patient is unable to provide much history. She reports to me that she has been having suicidal thoughts and a plan to overdose on Tylenol. This has been going on for about 1 day. She repeatedly states over and over and she would like to go to [facility] by ambulance. History is mostly obtained from [facility] providers. Patient was at the [facility] seeing her counselor today. She told her counselor that she had "her cut her toenails off." They were able to evaluate these notes that they were cut very short down to the skin. She also told her counselor that she is having suicidal thoughts. Thus they brought her to the ER for further management and care. Patient has a long history of psychiatric illness. Current diagnoses include anxiety and depression. She has had previous suicide attempts with overdosing on Ativan. Her current medications include Ativan 2 mg 3 times a day, Paxil and loxapine. She is currently seeing a counselor [facility] and Dr. Ramachandran at [facility]. Patient is a poor historian at this point. She reports some abdominal pain. States that this started this morning. Does not respond to more questioning about nausea, vomiting, diarrhea or constipation. Review of the patient's records show that she was in the ER on 09-26-16 for abdominal pain. She had a complete workup including a CT scan which was unremarkable. Diagnosed with constipation. Patient was seen in the ER and 07-05-16. 4 seizures. Reportedly she had 2 seizures at home. She was ultimately sent to [facility]. Patient was seen on 01-16-17 for an Ativan overdose. She was sent home at that time. Onset: Today Feet Pain Score (Numeric/FACES): 5 - Related Data Allergies Allergy/AdvReac Type Severity Reaction Status Date / Time celecoxib [From Celebrex] Allergy Other Verified 10/21/16 10:36 clarithromycin [From Biaxin] Allergy Other Verified 10/21/16 10:36 lisinopril Allergy Cough Verified 10/21/16 10:36 HCTZ Allergy Other Uncoded 10/21/16 10:36 Home Meds: Home Meds Losartan [Cozaar] 100 mg PO DAILY 06/19/16 [History] PARoxetine HCl [Paroxetine HCl] 40 mg PO DAILY 06/19/16 [History] Cholecalciferol (Vitamin D3) [Vitamin D3] 2,000 unit PO DAILY 07/05/16 [History] Fish Oil/Blanco-3 Fatty Acids [Fish Oil 1,000 MG] 1,000 mg PO BID 07/05/16 [ History] Lutein/Minerals/Vit A,C & E [Ocuvite] 1 tab PO DAILY 07/05/16 [History] LORazepam [Ativan] 2 mg PO TID 09/21/16 [History] Loxapine Succinate [Loxapine] 25 mg PO TID 09/21/16 [History] Nitrofurantoin [place]/Macrocryst [Macrobid] 100 mg PO BID #10 cap 09/21/16 [Rx] Propranolol [Inderal LA] 120 mg PO DAILY 09/21/16 [History] Hydrocodone/Acetaminophen [Hydrocodon-Acetaminophn 10-325] 1 tab PO Q6HR PRN 06/13 [History] Past Medical History HEENT History: Reports: Impaired Vision Other HEENT History: wears eyeglasses Cardiovascular History: Reports: High Cholesterol, Hypertension Respiratory History: Reports: Pneumonia, Recurrent SHIP CLEANER History: Reports: Psychiatric History: Reports: Anxiety, Depression, Emotional Problems, Suicidal Ideation Other Psychiatric History: outpatient treatement at [facility] Hematologic History: Reports: Anemia - Past Surgical History Female Surgical History: Reports: Breast Biopsy, Section, Other ( See Below) Other Female Surgeries/Procedures: two C-sections. Social & Family History - Family History Family Medical History: Noncontributory - Tobacco Use Smoking Status *Q: Never Smoker Used Tobacco, but Quit: Yes Second Hand Smoke Exposure: No - Caffeine Use Caffeine Use: Reports: Coffee - Recreational Drug Use Recreational Drug Use: No - Living Situation & Occupation Living situation: Reports: , with Spouse Occupation: Retired ED ROS GENERAL - Review of Systems Review Of Systems: See Below Constitutional: Denies: Fever GI/Abdominal: Reports: Abdominal Pain (lower abdomen). Denies: Constipation, Diarrhea, Nausea, Vomiting Skin: Reports: Change in Hair/Nails (cute toenails short) Neurological: Reports: Headache Psychiatric: Reports: Anxiety, Suicidal Ideation ED EXAM, BEHAVIORAL HEALTH - Physical Exam Exam: See Below Exam Limited By: No Limitations General Appearance: Alert, WD/WN, Anxious, Moderate Distress, Obese Eye Exam: Bilateral Eye: PERRL Ears: Normal External Exam Nose: Normal Inspection Throat/Mouth: Normal Inspection, Normal Lips, Normal Voice, No Airway Compromise Respiratory/Chest: No Respiratory Distress, Lungs Clear, Normal Breath Sounds Cardiovascular: Normal Peripheral Pulses, Regular Rate, Rhythm, No Murmur GI/Abdominal: Normal Bowel Sounds, Soft, Non-Tender Neurological: Alert, Normal Gait Psychiatric: Alert, Normal Mood, Depressed Mood, Flat Affect, Restless, Tearful , Non-Communicative, Poor Eye Contact, Suicidal Plan, Suicidal Thoughts, Pressured Speech Skin Exam: Warm, Dry, Normal color COURSE, BEHAVIORAL HEALTH COMP - Course Vital Signs: Last Vital Signs Temp 36.9 C 10/21/16 10:29 Pulse 90 10/21/16 10:29 Resp 34 H 10/21/16 10:29 BP 151/89 H 10/21/16 10:29 Pulse Ox 99 10/21/16 10:29 Orders, Labs, Meds: Active Orders 24 hr Category Date Time Status Cardiac Monitoring [RC] . DIRECTED Care 10/21/16 12:06 Active Peripheral IV Care [RC] . DIRECTED Care 10/21/16 12:04 Active Abdomen 1V Flat [CR] Stat Exams 10/21/16 13:00 Taken LORazepam [Ativan] Med 10/21/16 14:13 Once 1 mg IVPUSH ONETIME ONE Sodium Chloride 0.9% [Saline Flush] Med 10/21/16 12:04 Active 10 ml FLUSH ASDIRECTED PRN Peripheral IV Insertion Adult [OM.PC] Routine Oth 10/21/16 12:04 Ordered Medication Orders Lorazepam (Ativan) 1 mg IVPUSH ONETIME ONE Stop: 10/21/16 14:14 Sodium Chloride (Saline Flush) 10 ml FLUSH ASDIRECTED PRN PRN Reason: Keep Vein Open Last Admin: 10/21/16 12:02 Dose: 10 ml Laboratory Tests 10/21/16 10/21/16 10/21/16 Range/Units 11:30 11:30 11:30 WBC 11.44 H (3.98-10.04) K/mm3 RBC 4.54 (3.98-5.22) M/mm3 Hgb 14.8 (11.2-15.7) gm/L Hct 43.8 (34.1-44.9) % MCV 96.5 H (79.4-94.8) fl MCH 32.6 H (25.6-32.2) pg MCHC 33.8 (32.2-35.5) g/dl RDW Std Deviation 50.8 H (36.4-46.3) fL Plt Count 340 (182-369) K/mm3 MPV 9.7 (9.4-12.3) fl Neutrophils % (Manual) 71 H (40-60) % Band Neutrophils % 0 (0-10) % Lymphocytes % (Manual) 25 (20-40) % Atypical Lymphs % 0 % Monocytes % (Manual) 4 (2-10) % Eosinophils % (Manual) 0 L (0.7-5.8) % Basophils % (Manual) 0 L (0.1-1.2) Platelet Estimate Adequate RBC Morph Comment Normal Sodium 135 L (136-145) mEq/L Potassium 3.4 L (3.5-5.1) mEq/L Chloride 101 (98-107) mEq/L Carbon Dioxide 20 L (21-32) mEq/L Anion Gap 17.4 H (5-15) BUN 12 (7-18) mg/dL Creatinine 0.8 (0.55-1.02) mg/dL Est Cr Clr Drug Dosing TNP Estimated GFR (MDRD) > 60 (>60) mL/min BUN/Creatinine Ratio 15.0 (14-18) Glucose 108 H (74-106) mg/dL Calcium 8.7 (8.5-10.1) mg/dL Total Bilirubin 0.5 (0.2-1.0) mg/dL AST 18 (15-37) U/L ALT 42 (14-59) U/L Alkaline Phosphatase 90 (46-116) U/L C-Reactive Protein < 0.2 (<1.0) mg/dL Total Protein 7.1 (6.4-8.2) g/dl Albumin 3.4 (3.4-5.0) g/dl Globulin 3.7 gm/dL Albumin/Globulin Ratio 0.9 L (1-2) Lipase (73-393) U/L TSH 3rd Generation (0.358-3.74) uIU/mL HCG, Qual (NEGATIVE) Urine Color (Yellow) Urine Appearance (Clear) Urine pH (5.0-8.0) Ur Specific [place] (1.005-1.030) Urine Protein (Negative) Urine Glucose (UA) (Negative) Urine Ketones (Negative) Urine Occult Blood (Negative) Urine Nitrite (Negative) Urine Bilirubin (Negative) Urine Urobilinogen (0.2-1.0) Ur Leukocyte Esterase (Negative) Urine RBC (0-5) /hpf Urine WBC (0-5) /hpf Ur Epithelial Cells (0-5) /hpf Urine Bacteria (FEW) /hpf Urine Mucus (FEW) /hpf Salicylates 1.2 L (2.8-20) mg/dL Urine Opiates Screen (NEGATIVE) Ur Buprenorphine Scrn (NEGATIVE) Ur Oxycodone Screen (NEGATIVE) Urine Methadone Screen (NEGATIVE) Ur Propoxyphene Screen (NEGATIVE) Acetaminophen 0 L (10-30) ug/mL Ur Barbiturates Screen (NEGATIVE) Ur Tricyclics Screen (NEGATIVE) Ur Phencyclidine Scrn (NEGATIVE) Ur Amphetamine Screen (NEGATIVE) U Methamphetamines Scrn (NEGATIVE) U Benzodiazepines Scrn (NEGATIVE) U Cocaine Metab Screen (NEGATIVE) U Marijuana (THC) Screen (NEGATIVE) Ethyl Alcohol 0.00 (0.00) gm% 10/21/16 10/21/16 10/21/16 Range/Units 11:30 11:30 12:31 WBC (3.98-10.04) K/mm3 RBC (3.98-5.22) M/mm3 Hgb (11.2-15.7) gm/L Hct (34.1-44.9) % MCV (79.4-94.8) fl MCH (25.6-32.2) pg MCHC (32.2-35.5) g/dl RDW Std Deviation (36.4-46.3) fL Plt Count (182-369) K/mm3 MPV (9.4-12.3) fl Neutrophils % (Manual) (40-60) % Band Neutrophils % (0-10) % Lymphocytes % (Manual) (20-40) % Atypical Lymphs % % Monocytes % (Manual) (2-10) % Eosinophils % (Manual) (0.7-5.8) % Basophils % (Manual) (0.1-1.2) Platelet Estimate RBC Morph Comment Sodium (136-145) mEq/L Potassium (3.5-5.1) mEq/L Chloride (98-107) mEq/L Carbon Dioxide (21-32) mEq/L Anion Gap (5-15) BUN (7-18) mg/dL Creatinine (0.55-1.02) mg/dL Est Cr Clr Drug Dosing Estimated GFR (MDRD) (>60) mL/min BUN/Creatinine Ratio (14-18) Glucose (74-106) mg/dL Calcium (8.5-10.1) mg/dL Total Bilirubin (0.2-1.0) mg/dL AST (15-37) U/L ALT (14-59) U/L Alkaline Phosphatase (46-116) U/L C-Reactive Protein (<1.0) mg/dL Total Protein (6.4-8.2) g/dl Albumin (3.4-5.0) g/dl Globulin gm/dL Albumin/Globulin Ratio (1-2) Lipase 190 (73-393) U/L TSH 3rd Generation 0.962 (0.358-3.74) uIU/mL HCG, Qual Negative (NEGATIVE) Urine Color (Yellow) Urine Appearance (Clear) Urine pH (5.0-8.0) Ur Specific [place] (1.005-1.030) Urine Protein (Negative) Urine Glucose (UA) (Negative) Urine Ketones (Negative) Urine Occult Blood (Negative) Urine Nitrite (Negative) Urine Bilirubin (Negative) Urine Urobilinogen (0.2-1.0) Ur Leukocyte Esterase (Negative) Urine RBC (0-5) /hpf Urine WBC (0-5) /hpf Ur Epithelial Cells (0-5) /hpf Urine Bacteria (FEW) /hpf Urine Mucus (FEW) /hpf Salicylates (2.8-20) mg/dL Urine Opiates Screen Negative (NEGATIVE) Ur Buprenorphine Scrn Negative (NEGATIVE) Ur Oxycodone Screen Negative (NEGATIVE) Urine Methadone Screen Negative (NEGATIVE) Ur Propoxyphene Screen Negative (NEGATIVE) Acetaminophen (10-30) ug/mL Ur Barbiturates Screen Negative (NEGATIVE) Ur Tricyclics Screen Negative (NEGATIVE) Ur Phencyclidine Scrn Negative (NEGATIVE) Ur Amphetamine Screen Negative (NEGATIVE) U Methamphetamines Scrn Negative (NEGATIVE) U Benzodiazepines Scrn Presumptive positive H (NEGATIVE) U Cocaine Metab Screen Negative (NEGATIVE) U Marijuana (THC) Screen Negative (NEGATIVE) Ethyl Alcohol (0.00) gm% 10/21/16 Range/Units 12:31 WBC (3.98-10.04) K/mm3 RBC (3.98-5.22) M/mm3 Hgb (11.2-15.7) gm/L Hct (34.1-44.9) % MCV (79.4-94.8) fl MCH (25.6-32.2) pg MCHC (32.2-35.5) g/dl RDW Std Deviation (36.4-46.3) fL Plt Count (182-369) K/mm3 MPV (9.4-12.3) fl Neutrophils % (Manual) (40-60) % Band Neutrophils % (0-10) % Lymphocytes % (Manual) (20-40) % Atypical Lymphs % % Monocytes % (Manual) (2-10) % Eosinophils % (Manual) (0.7-5.8) % Basophils % (Manual) (0.1-1.2) Platelet Estimate RBC Morph Comment Sodium (136-145) mEq/L Potassium (3.5-5.1) mEq/L Chloride (98-107) mEq/L Carbon Dioxide (21-32) mEq/L Anion Gap (5-15) BUN (7-18) mg/dL Creatinine (0.55-1.02) mg/dL Est Cr Clr Drug Dosing Estimated GFR (MDRD) (>60) mL/min BUN/Creatinine Ratio (14-18) Glucose (74-106) mg/dL Calcium (8.5-10.1) mg/dL Total Bilirubin (0.2-1.0) mg/dL AST (15-37) U/L ALT (14-59) U/L Alkaline Phosphatase (46-116) U/L C-Reactive Protein (<1.0) mg/dL Total Protein (6.4-8.2) g/dl Albumin (3.4-5.0) g/dl Globulin gm/dL Albumin/Globulin Ratio (1-2) Lipase (73-393) U/L TSH 3rd Generation (0.358-3.74) uIU/mL HCG, Qual (NEGATIVE) Urine Color Yellow (Yellow) Urine Appearance Slt cloudy H (Clear) Urine pH 6.5 (5.0-8.0) Ur Specific [place] 1.015 (1.005-1.030) Urine Protein Negative (Negative) Urine Glucose (UA) Negative (Negative) Urine Ketones Negative (Negative) Urine Occult Blood Negative (Negative) Urine Nitrite Negative (Negative) Urine Bilirubin Negative (Negative) Urine Urobilinogen 0.2 (0.2-1.0) Ur Leukocyte Esterase Negative (Negative) Urine RBC Not seen (0-5) /hpf Urine WBC 0-5 (0-5) /hpf Ur Epithelial Cells 0-5 (0-5) /hpf Urine Bacteria Many H (FEW) /hpf Urine Mucus Not seen (FEW) /hpf Salicylates (2.8-20) mg/dL Urine Opiates Screen (NEGATIVE) Ur Buprenorphine Scrn (NEGATIVE) Ur Oxycodone Screen (NEGATIVE) Urine Methadone Screen (NEGATIVE) Ur Propoxyphene Screen (NEGATIVE) Acetaminophen (10-30) ug/mL Ur Barbiturates Screen (NEGATIVE) Ur Tricyclics Screen (NEGATIVE) Ur Phencyclidine Scrn (NEGATIVE) Ur Amphetamine Screen (NEGATIVE) U Methamphetamines Scrn (NEGATIVE) U Benzodiazepines Scrn (NEGATIVE) U Cocaine Metab Screen (NEGATIVE) U Marijuana (THC) Screen (NEGATIVE) Ethyl Alcohol (0.00) gm% Medications Generic Name Dose Route Start Last Admin Trade Name Freq PRN Reason Stop Dose Admin Lorazepam 1 mg 10/21/16 14:13 Ativan IVPUSH 10/21/16 14:14 ONETIME ONE Sodium Chloride 10 ml 10/21/16 12:04 10/21/16 12:02 Saline Flush FLUSH 10 ml ASDIRECTED PRN Administration Keep Vein Open Discontinued Medications Generic Name Dose Route Start Last Admin Trade Name Freq PRN Reason Stop Dose Admin Diphenhydramine HCl Confirm 10/21/16 11:15 10/21/16 11:18 Benadryl Administered 10/21/16 11:16 Not Given Dose 50 mg .ROUTE .STK-MED ONE Diphenhydramine HCl 50 mg 10/21/16 11:14 10/21/16 11:15 Benadryl IM 10/21/16 11:15 50 mg ONETIME ONE Administration Haloperidol Lactate Confirm 10/21/16 11:15 10/21/16 11:18 Haldol Administered 10/21/16 11:16 Not Given Dose 5 mg .ROUTE .STK-MED ONE Haloperidol Lactate 5 mg 10/21/16 11:14 10/21/16 11:15 Haldol IM 10/21/16 11:15 5 mg ONETIME ONE Administration Haloperidol Lactate 5 mg 10/21/16 12:46 10/21/16 12:52 Haldol IVPUSH 10/21/16 12:47 5 mg ONETIME ONE Administration Sodium Chloride 1,000 mls @ 999 mls/hr 10/21/16 12:04 10/21/16 12:26 Normal Saline IV 10/21/16 13:04 999 mls/hr ONETIME ONE Administration Lorazepam 1 mg 10/21/16 10:48 10/21/16 11:05 Ativan IM 10/21/16 10:49 1 mg ONETIME ONE Administration Lorazepam 2 mg 10/21/16 11:46 10/21/16 11:51 Ativan IM 10/21/16 11:47 2 mg ONETIME ONE Administration Re-Assessment/Re-Exam: 11:49 No change in anxiety symptoms with 1mg IM ativan, 5mg IM haldol and 50mg IM benadryl. Patient is normally on 2mg ativan PO tid. Discussed with Dr. Diego Lino, recommend giving and additional 2mg IM ativan. Plan, once medically cleared, will be to go to [facility] in [place]. 11:58 Nursing staff called. When they were administering the 2 mg of IM Ativan the patient had an apparent seizure. I'm unsure if she has had this any history. Sounds as if the last about 30 seconds. When I evaluated her her eyes are still flickering. She answered questions appropriately and states she has a headache. We will order a head CT to ensure she does not a bleed. 12:20 Patient has returned from CT. I briefly reviewed the head CT and does not see any acute bleeds. She is sitting up in bed and is active. Continually repeats that she wants to go to [facility] by ambulance. She states that she does not feel well. She is not hyperventilating is more relaxed and I first evaluated her. 13:29 Labs have returned. White blood cell count 11.44 with no bands, hemoglobin 14.8 and platelets 340. CRP is less than 0.2. Salicylates are 1.2. Acetaminophen is 0. Alcohol is 0. Sodium 135, potassium 3.4 foot 101. Anion gap 17.4. Glucose 104. drug screen positive for benzos she is prescribed. UA is unremarkable The patient is much more calm. Her is at her bedside. He reports to me that she has not been taking any medical complaints recently. No recent complaints of abdominal pain or headaches. Reports that she has been seen by neurology. She has had extensive testing which did not show any neurologic findings. They suggest that her seizures are indeed due to anxiety and depression. He did not see her this morning as she was asleep when he left for work. She did not make any suicidal threats or express any plan yesterday. Discussed the case with Dr. Diego Merritt. She recommended giving an additional 5 mg IV Haldol as the patient was becoming more agitated again earlier. This was given. Patient is now more calm. I discussed with her of her abdominal pain. She reports that her last bowel movement was today. She reports pain in the lower abdomen. No fevers, nausea, vomiting, diarrhea or constipation. I spoke with Dr. Driscoll, psychiatrist at [facility] in [place]. They have a bed available. They will plan on except care pending ear half-way paperwork. I filled this out and will fax this to [facility]. Next Nursing staff came and reported to me. Reports that when she was here in September complaining of abdominal pain that she overdosed on hydrocodone at that point. No drug screen was completed so I'm unable to confirm this. She had a CT done which showed increased stool in her colon. But no acute findings. She was discharged home at that time. Sounds as if the provider was unaware of her intentional hydrocodone overdose at that time. CT of the head impression per Dr. Dennison: No acute intracranial abnormality is identified. No significant change is seen from prior head CT exam. 14:01 Flat plat of the abdomen shows no no free air, no air fluid lines. Increased stool to the right colon. I feel constipation is likely causing her abdominal discomfort. 14:17 Patient made aware of plan to go by ambulance to [facility] in [place]. Emergency half-way paperwork was filed and she is aware of this. She asked for more medication to help her relax. I will give her 1 more milligram of IV Ativan. Medical Clearance: 10/21/16 14:17 Patient is cleared from a medical standpoint to go to [facility] in [place]. Dr. Driscoll accepting. Patient will go by ground ambulance with a lard renderer presents as er half-way paperwork has been filed. Departure - Departure Time of Disposition: 14:18 Disposition: DC/Tfer to [facility] Condition: Fair Clinical Impression: Self-harm, Suicidal intent, Planning to commit suicide - Discharge Information Forms: ED Department Discharge Additional Instructions: Patient to go by ground ambulance with the Sales Facilitator present to [facility] in [place]. Plan is to go to the ER. She has been accepted by Dr. Driscoll, psychiatrist at [facility]. Emergency half-way paperwork has been completed. - My Orders Last 24 Hours: My Active Orders 10/21/16 12:04 Peripheral IV Care [RC] . DIRECTED Sodium Chloride 0.9% [Saline Flush] 10 ml FLUSH ASDIRECTED PRN Peripheral IV Insertion Adult [OM.PC] Routine 10/21/16 12:06 Cardiac Monitoring [RC] . DIRECTED 10/21/16 13:00 Abdomen 1V Flat [CR] Stat 10/21/16 14:13 LORazepam [Ativan] 1 mg IVPUSH ONETIME ONE - Assessment/Plan Last 24 Hours: My Active Orders 10/21/16 12:04 Peripheral IV Care [RC] . DIRECTED Sodium Chloride 0.9% [Saline Flush] 10 ml FLUSH ASDIRECTED PRN Peripheral IV Insertion Adult [OM.PC] Routine 10/21/16 12:06 Cardiac Monitoring [RC] . DIRECTED 10/21/16 13:00 Abdomen 1V Flat [CR] Stat 10/21/16 14:13 LORazepam [Ativan] 1 mg IVPUSH ONETIME ONE
[2016-10-21 12:03] LABS: ACETAMINOPHEN 0 ug/mL (10-30)
[2016-10-21] MEDS ORDERED: Sodium Chloride 0.9% 1,000 ML IV ONE (12:04)
[2016-10-21] MEDS ORDERED: Sodium Chloride 0.9% 10 ML Syringe FLUSH PRN (12:04)
[2016-10-21] MEDS ORDERED: Haloperidol Lactate 5 MG/ML SDV IVPUSH ONE (12:46)
--- NOTE | 2016-10-21 12:56 | CT ---
Head CT Technique: Multiple axial sections through the brain were obtained. Intravenous contrast was not utilized. Comparison: Previous head CT exam of 09/21 16 is available. Findings: Ventricles along with basal cisterns and sulci over the convexities appear within normal limits for the patient's age. No abnormal parenchymal densities are seen. No evidence of intracranial hemorrhage. No midline shift or mass effect is seen. Bone window settings were reviewed which shows no acute calvarial abnormality. Incidental note of hyperostosis interna frontalis which is a normal variant. Impression: 1. No acute intracranial abnormality is identified. No significant change is seen from prior head CT exam. Diagnostic code #2
[2016-10-21] MEDS ORDERED: LORazepam 2 MG/ML MDV IVPUSH ONE (14:13)
--- NOTE | 2016-10-22 13:36 | CR ---
Abdomen: Supine view of the abdomen was obtained. Comparison: No previous abdominal x-ray Bowel gas pattern appears normal. Calcifications are seen within the pelvis believed to represent phleboliths. Mild degenerative change is scattered within the spine. No discrete soft tissue abnormality is appreciated. Impression: 1. Incidental findings as described above. Diagnostic code #1
== END 2016-10-21 14:25 ==
LOC: JD.ED 10:18
DX: R45.851 Suicidal ideations (principal); I10 Essential (primary) hypertension; F41.9 Anxiety disorder, unspecified; F32.9 Major depressive disorder, single episode, unspecified; Z88.8 Allergy status to other drugs, medicaments and biological substances; Z79.899 Other long term (current) drug therapy; E78.00 Pure hypercholesterolemia, unspecified
CPT/HCPCS: 36415; 70450; 74000; 80053; 80306; 81001; 83690; 84443; 84703; 85025; 86140; 96361; 96372; 96374; 96375; 99285; G0480; J1200; J1630; J2060; J7040; J7050; P9612

== ENCOUNTER 2016-11-25 11:10 | Emergency (ER) | payer BC ==
[2016-11-25 11:22] VITALS: BP 150/77
[2016-11-25] MEDS ORDERED: Acetaminophen/HYDROcodone 325-5 MG Tab PO ONE (11:36)
[2016-11-25] MEDS ORDERED: Ketorolac 60 MG/2 ML SDV IM ONE (11:36)
--- NOTE | 2016-11-25 11:42 | EDM.PDOC ---
ED HPI GENERAL MEDICAL PROBLEM - General Chief Complaint: Lower Extremity Injury/Pain Stated Complaint: CANT WALK ON LEFT LEG Time Seen by Provider: 11/25/16 11:30 Source of Information: Reports: Patient History Limitations: Reports: No Limitations - History of Present Illness INITIAL COMMENTS - FREE TEXT/NARRATIVE: The patient presents with left knee pain. This has been going on for months and she is scheduled to see Dr Ferguson on December 02. She had x-rays that shows bone on bone arthritis. For the past few days it has been hurting worse. She does not think she twisted it or turned wrong. She has no other pain. Onset: Gradual Duration: Week(s): Location: Reports: Lower Extremity, Left (Knee) Quality: Reports: Sharp Severity: Severe Improves with: Reports: None Worsens with: Reports: Movement Context: Reports: Activity (Not sure how this happened) Associated Symptoms: Reports: No Other Symptoms Left Knee Pain Score (Numeric/FACES): 8 - Related Data Allergies Allergy/AdvReac Type Severity Reaction Status Date / Time celecoxib [From Celebrex] Allergy Hives Verified 11/25/16 11:22 clarithromycin [From Biaxin] Allergy Hives Verified 11/25/16 11:22 lisinopril Allergy Hives Verified 11/25/16 11:22 Home Meds: Home Meds FLUoxetine HCl [Fluoxetine] 25 mg PO DAILY 11/25/16 [History] Hydrocodone/Acetaminophen [Hydrocodon-Acetaminophen 5-325] 1 - 2 each PO Q6HR PRN #20 tablet 11/25/16 [Rx] LORazepam [Ativan] 2 mg PO TID 11/25/16 [History] Losartan [Cozaar] 50 mg PO DAILY 11/25/16 [History] PARoxetine [Paxil] 20 mg PO BID 11/25/16 [History] amLODIPine [Norvasc] 5 mg PO DAILY 11/25/16 [History] Past Medical History Psychiatric History: Reports: Anxiety, Depression Social & Family History - Family History Family Medical History: Noncontributory - Tobacco Use Smoking Status *Q: Unknown Ever Smoked Review of Systems - Review of Systems Review Of Systems: See Below Constitutional: Reports: No Symptoms Eyes: Reports: No Symptoms Ears: Reports: No Symptoms Nose: Reports: No Symptoms Mouth/Throat: Reports: No Symptoms Respiratory: Reports: No Symptoms Cardiovascular: Reports: No Symptoms GI/Abdominal: Reports: No Symptoms Musculoskeletal: Reports: Other (Left knee pain) ED EXAM, GENERAL - Physical Exam Exam: See Below Exam Limited By: No Limitations General Appearance: Alert, No Apparent Distress Ears: Normal External Exam Nose: Normal Inspection Head: Atraumatic, Normocephalic Neck: Normal Inspection Respiratory/Chest: No Respiratory Distress Extremities: Other (Left knee pain upon palpation to the medial and lateral knee. Good sensation and pulses distally. Ligaments appear stable when stressing them.) Course - Vital Signs Last Recorded V/S: Last Vital Signs Temp 98.5 F 11/25/16 11:19 Pulse 86 11/25/16 11:19 Resp 18 11/25/16 11:19 BP 150/77 H 11/25/16 11:19 Pulse Ox 94 L 11/25/16 11:19 - Orders/Labs/Meds Orders: Active Orders 24 hr Category Date Time Status Acetaminophen/HYDROcodone [[place] 325-5 MG] Med 11/25/16 11:36 Once 2 tab PO ONETIME ONE Ketorolac [Toradol] Med 11/25/16 11:36 Once 60 mg IM ONETIME ONE - Re-Assessments/Exams Free Text/Narrative Re-Assessment/Exam: 11/25/16 11:42 I ordered a shot of toradol 60mg and hydrocodone 5mg/325mg X 2. I will get her a walker for home and more hydrocodone. Departure - Departure Time of Disposition: 11:45 Disposition: Home, Self-Care 01 Condition: Good Clinical Impression: Left knee pain Qualifiers: Chronicity: acute Qualified Code(s): M25.562 - Pain in left knee Osteoarthritis of left knee Qualifiers: Osteoarthritis type: primary Qualified Code(s): M17.12 - Unilateral primary osteoarthritis, left knee - Discharge Information Prescriptions: Hydrocodone/Acetaminophen [Hydrocodon-Acetaminophen 5-325] 1 - 2 each PO Q6HR PRN #20 tablet PRN Reason: Pain Referrals: Amanda Herman CLERICAL ADMINISTRATOR [Primary Care Provider] - Forms: ED Department Discharge Additional Instructions: Use the walker for the next few days. Take the hydrocodone as needed for pain and you may also take some motrin or aleve. Follow up with your orthopedic surgeon as planned. Please return if you are worse. - My Orders Last 24 Hours: My Active Orders 11/25/16 11:36 Acetaminophen/HYDROcodone [[place] 325-5 MG] 2 tab PO ONETIME ONE Ketorolac [Toradol] 60 mg IM ONETIME ONE - Assessment/Plan Last 24 Hours: My Active Orders 11/25/16 11:36 Acetaminophen/HYDROcodone [[place] 325-5 MG] 2 tab PO ONETIME ONE Ketorolac [Toradol] 60 mg IM ONETIME ONE
== END 2016-11-25 12:17 | disposition home or self-care (01) ==
LOC: MERGE 11:10 → JD.ED 11:10
DX: M17.12 Unilateral primary osteoarthritis, left knee (principal); F41.9 Anxiety disorder, unspecified; F32.9 Major depressive disorder, single episode, unspecified; Z79.899 Other long term (current) drug therapy; Z88.1 Allergy status to other antibiotic agents; Z88.8 Allergy status to other drugs, medicaments and biological substances
CPT/HCPCS: 96372; 99283; A9270; J1885

== ENCOUNTER 2016-12-03 13:50 | Emergency (ER) | payer BC ==
[2016-12-03 14:01] VITALS: BP 150/83
--- NOTE | 2016-12-03 14:22 | EDM.PDOCBH ---
ED HPI GENERAL MEDICAL PROBLEM - General Chief Complaint: Behavioral/Psych Stated Complaint: PANIC ATTACK Time Seen by Provider: 12/03/16 14:21 Source of Information: Reports: Patient History Limitations: Reports: No Limitations - History of Present Illness INITIAL COMMENTS - FREE TEXT/NARRATIVE: 61-year-old female presents with [facility] services for evaluation treatment of anxiety, panic, suicidal ideation and suicidal plan. Patient states that things have been steadily worsening the last 2 days. She did see her psychiatrist yesterday and had multiple medications changed. She reports that she was not completely honest with her psychiatrist about her suicidal ideation and plan. She reports a plan to overdose on Tylenol. She is also experiencing auditory hallucinations telling her to harm herself. She has been engaging in self-harm by using a nail clippers to her fingers. She states that the auditory hallucinations are telling her to harm herself and kill herself. She denies any visual hallucinations. She states that she does not feel safe at home. Patient was seen by myself in September of this year. She presented with similar anxiety, suicidal ideation and a plan. At that time she was sent to [facility] in [place] for inpatient psychiatric treatment. She reports to me that she was there for 4 days. Reportedly she has been to [facility] twice this year. She was also an inpatient psychiatric facility in [place] in 2016. She feels that they did not adequately help her. She is open to going to the [facility] today. Patient denies any medical concerns. She denies any fevers, chills, nausea, vomiting, chest pain, shortness of breath, abdominal pain or decreased appetite. She did eat this morning. She ate a banana. Hasn't had much to eat since, is not hungry at this time. - Related Data Allergies Allergy/AdvReac Type Severity Reaction Status Date / Time celecoxib [From Celebrex] Allergy Other Verified 12/03/16 14:01 clarithromycin [From Biaxin] Allergy Other Verified 12/03/16 14:01 lisinopril Allergy Cough Verified 12/03/16 14:01 HCTZ Allergy Other Uncoded 10/21/16 10:36 Home Meds: Home Meds PARoxetine HCl [Paroxetine HCl] 20 mg PO BEDTIME 06/19/16 [History] LORazepam [Ativan] 1 mg PO BID 09/21/16 [History] Loxapine Succinate [Loxapine] 20 mg PO BID 09/21/16 [History] Venlafaxine [Effexor XR] 37.5 mg PO BEDTIME 10/21/16 [History] LORazepam [Ativan] 1 mg PO WITHLUNCH 11/25/16 [History] Past Medical History HEENT History: Reports: Impaired Vision Other HEENT History: wears eyeglasses Cardiovascular History: Reports: High Cholesterol, Hypertension Respiratory History: Reports: Pneumonia, Recurrent APPLIQUER ZIGZAG History: Reports: Psychiatric History: Reports: Anxiety, Depression, Emotional Problems, Suicidal Ideation Other Psychiatric History: outpatient treatement at [facility] Hematologic History: Reports: Anemia - Past Surgical History Female Surgical History: Reports: Breast Biopsy, Section, Other ( See Below) Other Female Surgeries/Procedures: two C-sections. Social & Family History - Family History Family Medical History: Noncontributory - Tobacco Use Smoking Status *Q: Never Smoker Used Tobacco, but Quit: Yes Second Hand Smoke Exposure: No - Caffeine Use Caffeine Use: Reports: Coffee - Recreational Drug Use Recreational Drug Use: No - Living Situation & Occupation Living situation: Reports: , with Spouse Occupation: Retired ED ROS GENERAL - Review of Systems Review Of Systems: See Below Constitutional: Denies: Fever, Chills Respiratory: Denies: Shortness of Breath Cardiovascular: Denies: Chest Pain GI/Abdominal: Denies: Abdominal Pain, Nausea, Vomiting Neurological: Denies: Headache Psychiatric: Reports: Anxiety, Depression, Hallucinations, Suicidal Ideation. Denies: Homicidal Ideation ED EXAM, BEHAVIORAL HEALTH - Physical Exam Exam: See Below Exam Limited By: No Limitations General Appearance: Alert, WD/WN, Anxious Ears: Normal External Exam, Normal Canal, Hearing Grossly Normal, Normal TMs Nose: Normal Inspection Throat/Mouth: Normal Inspection, Normal Lips, Normal Voice, No Airway Compromise Respiratory/Chest: No Respiratory Distress, Lungs Clear, Normal Breath Sounds Cardiovascular: Normal Peripheral Pulses, Regular Rate, Rhythm, No Murmur Neurological: Alert Psychiatric: Alert, Flat Affect, Poor Eye Contact, Withdrawn, Suicidal Plan, Suicidal Thoughts, Auditory Hallucinations. No: Homicidal Thoughts, Visual Hallucinations Skin Exam: Warm, Dry, Signs of self injury (finger tips multiple superficial lacerations and abrasions) COURSE, BEHAVIORAL HEALTH COMP - Course Vital Signs: Last Vital Signs Temp 36.5 C 12/03/16 13:56 Pulse 93 08/09/17 13:56 Resp 16 12/03/16 13:56 BP 150/83 H 12/03/16 13:56 Pulse Ox 99 12/03/16 13:56 Orders, Labs, Meds: Active Orders 24 hr Category Date Time Status LORazepam [Ativan] Med 12/03/16 16:26 Once 1 mg PO ONETIME ONE Medication Orders Lorazepam (Ativan) 1 mg PO ONETIME ONE Stop: 12/03/16 16:27 Laboratory Tests 12/03/16 12/03/16 12/03/16 Range/Units 15:00 15:00 15:10 WBC (3.98-10.04) K/mm3 RBC (3.98-5.22) M/mm3 Hgb (11.2-15.7) gm/L Hct (34.1-44.9) % MCV (79.4-94.8) fl MCH (25.6-32.2) pg MCHC (32.2-35.5) g/dl RDW Std Deviation (36.4-46.3) fL Plt Count (182-369) K/mm3 MPV (9.4-12.3) fl Neut % (Auto) (34.0-71.1) % Lymph % (Auto) (19.3-51.7) % [place] % (Auto) (4.7-12.5) % Eos % (Auto) (0.7-5.8) Baso % (Auto) (0.1-1.2) % Neut # (Auto) (1.56-6.13) K/mm3 Lymph # (Auto) (1.18-3.74) K/mm3 [place] # (Auto) (0.24-0.36) K/mm3 Eos # (Auto) (0.04-0.36) K/mm3 Baso # (Auto) (0.01-0.08) K/mm3 Sodium 138 (136-145) mEq/L Potassium 3.6 (3.5-5.1) mEq/L Chloride 104 (98-107) mEq/L Carbon Dioxide 23 (21-32) mEq/L Anion Gap 14.6 (5-15) BUN 8 (7-18) mg/dL Creatinine 0.8 (0.55-1.02) mg/dL Est Cr Clr Drug Dosing 65.38 mL/min Estimated GFR (MDRD) > 60 (>60) mL/min BUN/Creatinine Ratio 10.0 L (14-18) Glucose 116 H (74-106) mg/dL Calcium 9.7 (8.5-10.1) mg/dL Total Bilirubin 0.6 (0.2-1.0) mg/dL AST 19 (15-37) U/L ALT 36 (14-59) U/L Alkaline Phosphatase 84 (46-116) U/L Total Protein 7.7 (6.4-8.2) g/dl Albumin 4.1 (3.4-5.0) g/dl Globulin 3.6 gm/dL Albumin/Globulin Ratio 1.1 (1-2) TSH 3rd Generation 0.893 (0.358-3.74) uIU/mL HCG, Qual (NEGATIVE) Urine Color (Yellow) Urine Appearance (Clear) Urine pH (5.0-8.0) Ur Specific [place] (1.005-1.030) Urine Protein (Negative) Urine Glucose (UA) (Negative) Urine Ketones (Negative) Urine Occult Blood (Negative) Urine Nitrite (Negative) Urine Bilirubin (Negative) Urine Urobilinogen (0.2-1.0) Ur Leukocyte Esterase (Negative) Urine RBC (0-5) /hpf Urine WBC (0-5) /hpf Ur Epithelial Cells (0-5) /hpf Urine Bacteria (FEW) /hpf Urine Mucus (FEW) /hpf Salicylates 1.3 L (2.8-20) mg/dL Urine Opiates Screen Negative (NEGATIVE) Ur Buprenorphine Scrn Negative (NEGATIVE) Ur Oxycodone Screen Negative (NEGATIVE) Urine Methadone Screen Negative (NEGATIVE) Ur Propoxyphene Screen Negative (NEGATIVE) Acetaminophen 0 L (10-30) ug/mL Ur Barbiturates Screen Negative (NEGATIVE) Ur Tricyclics Screen Negative (NEGATIVE) Ur Phencyclidine Scrn Negative (NEGATIVE) Ur Amphetamine Screen Negative (NEGATIVE) U Methamphetamines Scrn Negative (NEGATIVE) U Benzodiazepines Scrn Presumptive positive H (NEGATIVE) U Cocaine Metab Screen Negative (NEGATIVE) U Marijuana (THC) Screen Negative (NEGATIVE) Ethyl Alcohol 0.00 (0.00) gm% 08/09/17 08/09/17 08/09/17 Range/Units 15:10 15:20 15:20 WBC 10.46 H (3.98-10.04) K/mm3 RBC 4.79 (3.98-5.22) M/mm3 Hgb 15.7 (11.2-15.7) gm/L Hct 47.3 H (34.1-44.9) % MCV 98.7 H (79.4-94.8) fl MCH 32.8 H (25.6-32.2) pg MCHC 33.2 (32.2-35.5) g/dl RDW Std Deviation 50.5 H (36.4-46.3) fL Plt Count 365 (182-369) K/mm3 MPV 9.8 (9.4-12.3) fl Neut % (Auto) 70.1 (34.0-71.1) % Lymph % (Auto) 20.6 (19.3-51.7) % [place] % (Auto) 7.3 (4.7-12.5) % Eos % (Auto) 1.1 (0.7-5.8) Baso % (Auto) 0.3 (0.1-1.2) % Neut # (Auto) 7.35 H (1.56-6.13) K/mm3 Lymph # (Auto) 2.15 (1.18-3.74) K/mm3 [place] # (Auto) 0.76 H (0.24-0.36) K/mm3 Eos # (Auto) 0.11 (0.04-0.36) K/mm3 Baso # (Auto) 0.03 (0.01-0.08) K/mm3 Sodium (136-145) mEq/L Potassium (3.5-5.1) mEq/L Chloride (98-107) mEq/L Carbon Dioxide (21-32) mEq/L Anion Gap (5-15) BUN (7-18) mg/dL Creatinine (0.55-1.02) mg/dL Est Cr Clr Drug Dosing mL/min Estimated GFR (MDRD) (>60) mL/min BUN/Creatinine Ratio (14-18) Glucose (74-106) mg/dL Calcium (8.5-10.1) mg/dL Total Bilirubin (0.2-1.0) mg/dL AST (15-37) U/L ALT (14-59) U/L Alkaline Phosphatase (46-116) U/L Total Protein (6.4-8.2) g/dl Albumin (3.4-5.0) g/dl Globulin gm/dL Albumin/Globulin Ratio (1-2) TSH 3rd Generation (0.358-3.74) uIU/mL HCG, Qual Negative (NEGATIVE) Urine Color Yellow (Yellow) Urine Appearance Clear (Clear) Urine pH 6.0 (5.0-8.0) Ur Specific [place] 1.010 (1.005-1.030) Urine Protein Negative (Negative) Urine Glucose (UA) Negative (Negative) Urine Ketones Negative (Negative) Urine Occult Blood Trace-lysed H (Negative) Urine Nitrite Negative (Negative) Urine Bilirubin Negative (Negative) Urine Urobilinogen 0.2 (0.2-1.0) Ur Leukocyte Esterase 2+ H (Negative) Urine RBC 0-5 (0-5) /hpf Urine WBC 10-20 H (0-5) /hpf Ur Epithelial Cells Not seen (0-5) /hpf Urine Bacteria Few (FEW) /hpf Urine Mucus Not seen (FEW) /hpf Salicylates (2.8-20) mg/dL Urine Opiates Screen (NEGATIVE) Ur Buprenorphine Scrn (NEGATIVE) Ur Oxycodone Screen (NEGATIVE) Urine Methadone Screen (NEGATIVE) Ur Propoxyphene Screen (NEGATIVE) Acetaminophen (10-30) ug/mL Ur Barbiturates Screen (NEGATIVE) Ur Tricyclics Screen (NEGATIVE) Ur Phencyclidine Scrn (NEGATIVE) Ur Amphetamine Screen (NEGATIVE) U Methamphetamines Scrn (NEGATIVE) U Benzodiazepines Scrn (NEGATIVE) U Cocaine Metab Screen (NEGATIVE) U Marijuana (THC) Screen (NEGATIVE) Ethyl Alcohol (0.00) gm% Medications Generic Name Dose Route Start Last Admin Trade Name Freq PRN Reason Stop Dose Admin Lorazepam 1 mg 12/03/16 16:26 Ativan PO 12/03/16 16:27 ONETIME ONE Re-Assessment/Re-Exam: [facility] services has present throughout her stay in the ER. They have screened the patient and have contacted the [facility]. They Asked That I Contact JASMINA Land at [phone] for the Doc to doc We Spoke with the Patient's , Antonio, He Agrees to Transport the Patient Himself [place]. I spoke with Jannet Esquivel PA-C she agrees to accept the patient. Committal paperwork filed. Patient will go by ground to the [facility]. Medical Clearance: 12/03/16 16:29 Labs have returned. White blood cell count 10.46, hemoglobin 15.7 and platelets 365. HCG is negative. TSH is 0.893. Sodium is 138, potassium 3.6 and chloride 104. Anion gap 14.6. Glucose 116. Salicylates are 1.3. acetaminophen is 0. Alcohol is 0. Drug screen positive for benzos. UA 2+ leuk and few bacteria. Negative for nitrates. Patient is cleared from medical standpoint to go to the [facility] for further psychiatric care. Departure - Departure Time of Disposition: 16:51 Disposition: DC/Tfer to Psych Hosp/Unit 65 Condition: Fair Clinical Impression: Self-harm, Planning to commit suicide - Discharge Information Referrals: Amanda Herman, FUNERAL PLANNER [Primary Care Provider] - Forms: ED Department Discharge Additional Instructions: Patient to go by private vehicle to the [facility]. The number is [phone] if you have any further questions of need help. Address [id number] [facility] [place] - My Orders Last 24 Hours: My Active Orders 12/03/16 16:26 LORazepam [Ativan] 1 mg PO ONETIME ONE - Assessment/Plan Last 24 Hours: My Active Orders 12/03/16 16:26 LORazepam [Ativan] 1 mg PO ONETIME ONE
[2016-12-03 16:02] LABS: ACETAMINOPHEN 0 ug/mL (10-30)
[2016-12-03] MEDS ORDERED: LORazepam 1 MG Tab PO ONE (16:26)
== END 2016-12-03 17:15 ==
LOC: JD.ED 13:50
DX: S61.219A Laceration without foreign body of unspecified finger without damage to nail, initial encounter (principal); I10 Essential (primary) hypertension; E78.00 Pure hypercholesterolemia, unspecified; F41.9 Anxiety disorder, unspecified; F32.9 Major depressive disorder, single episode, unspecified; Z87.01 Personal history of pneumonia (recurrent); Z86.2 Personal history of diseases of the blood and blood-forming organs and certain disorders involving the immune mechanism; Z87.891 Personal history of nicotine dependence; Z88.1 Allergy status to other antibiotic agents; Z88.8 Allergy status to other drugs, medicaments and biological substances; X78.8XXA Intentional self-harm by other sharp object, initial encounter
CPT/HCPCS: 36415; 80053; 80306; 81001; 84443; 84703; 85025; 99285; A9270; G0480; 99284

== ENCOUNTER 2016-12-11 10:33 | Emergency (ER) | payer BC ==
[2016-12-11 10:38] VITALS: BP 144/78
--- NOTE | 2016-12-11 11:53 | EDM.PDOC ---
ED HPI GENERAL MEDICAL PROBLEM - General Chief Complaint: Behavioral/Psych Stated Complaint: [facility] Time Seen by Provider: 12/11/16 10:45 Source of Information: Reports: Patient, Family (), RN Notes Reviewed History Limitations: Reports: No Limitations - History of Present Illness INITIAL COMMENTS - FREE TEXT/NARRATIVE: The patient states that she had a panic attack while at a gas station around 10: 00 this morning. She states that she felt shaky and forgetful. She states that she took 2 mg of Ativan. Her symptoms persisted for about 10 minutes. She expressly denies that she is currently feeling depressed, suicidal, or homicidal. The patient states that she has had similar symptoms in the past. She is diagnosed with depression and anxiety, and is currently being treated with loxapine, Ativan 2 mg 3 times a day, and Paxil. She states that her psychiatrist is in [place], but that she also sees Mohit, a counselor at [facility]. She states that she last saw her psychiatrist about 2 weeks ago. She states that he increased both her loxapine and Ativan doses, due to continued anxiety symptoms. She states that this medication change has not yet helped her symptoms. She states that she sees Mohit about every 1-2 weeks, with the last being about one week ago. During my evaluation, the patient stated "I'm so nervous" 4 times in a row. She states that she is here hoping that I will increase her Ativan dosage. The patient's PCP is Ilda Herman. - Related Data Allergies Allergy/AdvReac Type Severity Reaction Status Date / Time celecoxib [From Celebrex] Allergy Other Verified 12/11/16 10:38 clarithromycin [From Biaxin] Allergy Other Verified 12/11/16 10:38 lisinopril Allergy Cough Verified 12/11/16 10:38 HCTZ Allergy Other Uncoded 12/11/16 10:38 Home Meds: Home Meds Ascorbic Acid [C-1000] 1,000 mg PO BID 12/11/16 [History] Atenolol 50 mg PO DAILY 12/11/16 [History] Benztropine Mesylate 0.5 mg PO Q4H PRN 12/11/16 [History] Bone Restore With Vitamin K2 1 tab PO BID 12/11/16 [History] Cholecalciferol (Vitamin D3) [Vitamin D3] 2,000 unit PO DAILY 12/11/16 [History] LORazepam [Ativan] 2 mg PO TID 12/11/16 [History] Losartan [Cozaar] 100 mg PO DAILY 12/11/16 [History] Loxapine 25mg Cap 25 mg PO BID 12/11/16 [History] MV-Mn/FA/Coq10/Lycopene/Lutein [Theragran-M Premier 50+ Caplet] 1 each PO DAILY 12/11/16 [History] Magnesium Chloride [Mag-64] 64 mg PO BID 12/11/16 [History] Mecobal/Levomefolat Ca/B6 Phos [Foltanx Tablet] 1 each PO DAILY 12/11/16 [ History] Mecobal/Levomefolat Ca/B6 Phos [Foltanx Tablet] 1 tab PO DAILY 12/11/16 [History ] Methyl-Cobalamin 1 mg PO BID 12/11/16 [History] Nicotinamide Riboside 250 mg PO DAILY 12/11/16 [History] Wells-3/DHA/Epa/Fish Oil [Fish Oil 1,000 mg Softgel] 1 tab PO DAILY 12/11/16 [ History] Optimized Folate 1 tab PO DAILY 12/11/16 [History] PARoxetine HCl [Paroxetine HCl] 20 mg PO DAILY 12/11/16 [History] Pravastatin [Pravachol] 20 mg PO BEDTIME 12/11/16 [History] S-Adenosylmethionine Sul Tosyl [Ty-E] 200 mg PO DAILY 12/11/16 [History] Super Ubiquinol Coq10 1 cap PO DAILY 12/11/16 [History] amLODIPine [Norvasc] 10 mg PO DAILY 12/11/16 [History] Past Medical History HEENT History: Reports: Impaired Vision Other HEENT History: wears eyeglasses Cardiovascular History: Reports: High Cholesterol, Hypertension PASTE MAKER History: Reports: Musculoskeletal History: Reports: Osteoarthritis (left knee) Psychiatric History: Reports: Anxiety, Depression, Emotional Problems, Suicidal Ideation Hematologic History: Reports: Anemia - Past Surgical History Female Surgical History: Reports: Breast Biopsy, Section (x 2) Social & Family History - Family History Family Medical History: Noncontributory - Tobacco Use Smoking Status *Q: Never Smoker Second Hand Smoke Exposure: No - Caffeine Use Caffeine Use: Reports: Soda - Alcohol Use Alcohol Use History: No - Recreational Drug Use Recreational Drug Use: No - Living Situation & Occupation Living situation: Reports: , with Spouse Occupation: Retired ED ROS GENERAL - Review of Systems Review Of Systems: See Below Constitutional: Reports: No Symptoms HEENT: Reports: No Symptoms Respiratory: Reports: No Symptoms Cardiovascular: Reports: No Symptoms Endocrine: Reports: No Symptoms GI/Abdominal: Reports: No Symptoms : Reports: No Symptoms Musculoskeletal: Reports: No Symptoms Skin: Reports: No Symptoms Neurological: Reports: No Symptoms Psychiatric: Reports: Anxiety Hematologic/Lymphatic: Reports: No Symptoms Immunologic: Reports: No Symptoms ED EXAM, GENERAL - Physical Exam Exam: See Below Exam Limited By: No Limitations General Appearance: Alert, WD/WN, Anxious Eye Exam: Bilateral Eye: Normal Inspection Ears: Normal External Exam, Hearing Grossly Normal Nose: Normal Inspection, No Blood Throat/Mouth: Normal Inspection, Normal Lips, Normal Voice, No Airway Compromise Head: Atraumatic, Normocephalic Neck: Normal Inspection, Full Range of Motion Respiratory/Chest: No Respiratory Distress, Lungs Clear, Normal Breath Sounds, No Accessory Muscle Use Cardiovascular: Normal Peripheral Pulses, Regular Rate, Rhythm, No Gallop, No JVD, No Murmur, No Rub Peripheral Pulses: 4+: Radial (L), Radial (R) GI/Abdominal: Normal Bowel Sounds, Soft, Non-Tender, No Organomegaly, No Distention, No Abnormal Bruit, No Mass (Female) Exam: Deferred Rectal (Female) Exam: Deferred Extremities: Normal Inspection, Normal Range of Motion, No Pedal Edema, Normal Capillary Refill Neurological: Alert, Oriented, Other (Masked facies. Bradykinesia.) Psychiatric: Flat Affect Skin Exam: Warm, Dry, Intact, Normal Color, No Rash Lymphatic: No Adenopathy Course - Vital Signs Last Recorded V/S: Last Vital Signs Temp 36.6 C 12/11/16 10:34 Pulse 82 12/11/16 10:34 Resp 20 12/11/16 10:34 BP 144/78 H 12/11/16 10:34 Pulse Ox 96 12/11/16 10:34 - Re-Assessments/Exams Free Text/Narrative Re-Assessment/Exam: 12/11/16 11:49 The patient has severe, chronic anxiety, and, by her history, likely had a panic attack while at a gas station around 10:00 this morning. She took 2 mg of Ativan, and is requesting additional Ativan here. She has additional Ativan at home. I do not believe it is appropriate for us to give the patient additional Ativan outside of her prescription. If she feels she needs additional Ativan or a change in her Ativan dose, I believe her Psychiatrist, as her single prescriber , should be contacted. The patient and her expressed understanding of this rationale. The patient has some Parkinsonian features, however, the patient's states that the patient was evaluated by a Neurologist, who did not feel that the patient has Parkinson disease. Her Parkinsonian features may be related to one or more of the medications that she is on. Departure - Departure Time of Disposition: 11:51 Disposition: Home, Self-Care 01 Condition: Fair Clinical Impression: Anxiety disorder, Panic attack - Discharge Information Instructions: Panic Attacks Referrals: PCP,None [Primary Care Provider] - Forms: ED Department Discharge Additional Instructions: You were seen in the emergency room after suffering a panic attack at a gas station this morning. As you're anxiety disorder is a chronic condition, and you are already under the treatment of a Psychiatrist for it, we recommend you contact your psychiatrist for any changes in your medications. We recommend you contact your counselor Mohit at [facility] to arrange to be seen as soon as possible. If any other problems, please do not hesitate to return to the ER.
== END 2016-12-11 12:09 | disposition home or self-care (01) ==
LOC: JD.ED 10:33
DX: F41.0 Panic disorder [episodic paroxysmal anxiety] (principal); I10 Essential (primary) hypertension; E78.00 Pure hypercholesterolemia, unspecified; M19.90 Unspecified osteoarthritis, unspecified site; F32.9 Major depressive disorder, single episode, unspecified; Z98.890 Other specified postprocedural states; Z79.899 Other long term (current) drug therapy; Z88.1 Allergy status to other antibiotic agents; Z88.8 Allergy status to other drugs, medicaments and biological substances
CPT/HCPCS: 99282; 99284

== ENCOUNTER 2017-02-07 14:28 | Emergency (ER) | payer BC ==
[2017-02-07 14:52] VITALS: BP 148/51
[2017-02-07] MEDS ORDERED: LORazepam 2 MG/ML MDV IM ONE (14:58)
--- NOTE | 2017-02-07 15:22 | EDM.PDOCBH ---
ED HPI GENERAL MEDICAL PROBLEM - General Chief Complaint: Behavioral/Psych Stated Complaint: Anxiety Time Seen by Provider: 02/07/17 14:50 Source of Information: Reports: Patient, EMS, RN Notes Reviewed History Limitations: Reports: No Limitations - History of Present Illness INITIAL COMMENTS - FREE TEXT/NARRATIVE: 61 year old female presents to the ED with complaints of anxiety. She called 911 and EMS brought her in for anxiety attack. The patient feels her anxiety was brought on today by the fact that her is not home, he is at work. She has a known history of anxiety and depression. She was recently admitted to the [facility] for suicidal ideation. Her medications were adjusted and she was discharged home. She denies suicidal or homicidal ideation or plan. She denies hallucinations. On arrival, she initially said she felt better and left the ER. She then changed her mind in the waiting room and asked to be seen. She says she is taking her medications as prescribed. - Related Data Allergies Allergy/AdvReac Type Severity Reaction Status Date / Time celecoxib [From Celebrex] Allergy Other Verified 12/11/16 10:38 clarithromycin [From Biaxin] Allergy Other Verified 12/11/16 10:38 lisinopril Allergy Cough Verified 12/11/16 10:38 HCTZ Allergy Other Uncoded 12/11/16 10:38 Home Meds: Home Meds Ascorbic Acid [C-1000] 1,000 mg PO BID 12/11/16 [History] Atenolol 50 mg PO DAILY 12/11/16 [History] Bone Restore With Vitamin K2 1 tab PO BID 12/11/16 [History] Cholecalciferol (Vitamin D3) [Vitamin D3] 2,000 unit PO DAILY 12/11/16 [History] LORazepam [Ativan] 1 mg PO QID 12/11/16 [History] Losartan [Cozaar] 100 mg PO DAILY 12/11/16 [History] [place]-3/DHA/Epa/Fish Oil [Fish Oil 1,000 mg Softgel] 1 tab PO DAILY 12/11/16 [ History] PARoxetine HCl [Paroxetine HCl] 20 mg PO DAILY 12/11/16 [History] Super Ubiquinol Coq10 1 cap PO DAILY 12/11/16 [History] amLODIPine [Norvasc] 10 mg PO DAILY 12/11/16 [History] ClonazePAM [KlonoPIN] 1 mg PO QID 02/07/17 [History] Lurasidone HCl [Latuda] 80 mg PO DAILY 02/07/17 [History] Mirtazapine [Remeron] 30 mg PO BEDTIME 02/07/17 [History] Past Medical History HEENT History: Reports: Impaired Vision Other HEENT History: wears eyeglasses Cardiovascular History: Reports: High Cholesterol, Hypertension Respiratory History: Reports: Pneumonia, Recurrent 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: Musculoskeletal History: Reports: Osteoarthritis Psychiatric History: Reports: Anxiety, Depression, Emotional Problems, Suicidal Ideation Other Psychiatric History: outpatient treatement at [facility] Hematologic History: Reports: Anemia - Past Surgical History Female Surgical History: Reports: Breast Biopsy, Section Social & Family History - Family History Family Medical History: Noncontributory - Tobacco Use Smoking Status *Q: Never Smoker Used Tobacco, but Quit: Yes Second Hand Smoke Exposure: No - Caffeine Use Caffeine Use: Reports: Soda - Recreational Drug Use Recreational Drug Use: No - Living Situation & Occupation Living situation: Reports: , with Spouse Occupation: Retired ED ROS GENERAL - Review of Systems Review Of Systems: See Below Constitutional: Reports: No Symptoms. Denies: Fever Respiratory: Reports: No Symptoms. Denies: Shortness of Breath, Cough Cardiovascular: Reports: No Symptoms. Denies: Chest Pain GI/Abdominal: Reports: No Symptoms Psychiatric: Reports: Anxiety. Denies: Hallucinations, Homicidal Ideation, Suicidal Ideation ED EXAM, BEHAVIORAL HEALTH - Physical Exam Exam: See Below Exam Limited By: No Limitations General Appearance: Alert, WD/WN, Anxious Eye Exam: Bilateral Eye: EOMI, PERRL Respiratory/Chest: Lungs Clear, Normal Breath Sounds, Other (tachypnic ) Cardiovascular: Regular Rate, Rhythm Neurological: Alert, Normal Gait, No Motor/Sensory Deficits, Oriented x 3 Psychiatric: Alert, Inattentive, Flight of Ideas, Other (anxious, frequently requesting to speak to her on the phone ). No: Suicidal Plan, Suicidal Thoughts, Tangential Thoughts, Auditory Hallucinations, Visual Hallucinations, Grandiose Thoughts, Threatening Behavior Skin Exam: Warm, Intact, Diaphoretic COURSE, BEHAVIORAL HEALTH COMP - Course Vital Signs: Last Vital Signs Temp 97.6 F 02/07/17 14:51 Pulse 80 02/07/17 14:51 Resp 30 H 02/07/17 14:51 BP 148/51 H 02/07/17 14:51 Pulse Ox 100 02/07/17 14:51 Orders, Labs, Meds: Medications Discontinued Medications Generic Name Dose Route Start Last Admin Trade Name Galindo MASON Reason Stop Dose Admin Lorazepam 1 mg 02/07/17 14:58 02/07/17 15:11 Ativan IM 02/07/17 14:59 1 mg ONETIME ONE Administration Re-Assessment/Re-Exam: Patient was tachypnic and obviously anxious upon arrival. Discussed patient with Dr. Lino who is agreeable with treating the patient's anxiety here in the ED. She was given Ativan 1mg IM. She was monitored for a short time and then she requested to leave. She asked us to call a cab. She spoke to her on the phone and he is aware that she is here. She will be discharged home. She understands to return if things worsen or with any suicidal thoughts. Discharge instructions as documented. Departure - Departure Time of Disposition: 15:21 Disposition: Home, Self-Care 01 Condition: Fair Clinical Impression: Anxiety - Discharge Information Forms: ED Department Discharge Additional Instructions: Take your medications as prescribed See your counselor on Thursday Return to ER with any worsening symptoms or thoughts of hurting yourself or others No driving today due to sedating medications given in the ER
== END 2017-02-07 15:33 | disposition home or self-care (01) ==
LOC: JD.ED 14:28
DX: F41.9 Anxiety disorder, unspecified (principal); H54.7 Unspecified visual loss; E78.00 Pure hypercholesterolemia, unspecified; I10 Essential (primary) hypertension; Z87.01 Personal history of pneumonia (recurrent); Z88.8 Allergy status to other drugs, medicaments and biological substances; Z88.1 Allergy status to other antibiotic agents; Z79.899 Other long term (current) drug therapy; M19.90 Unspecified osteoarthritis, unspecified site
CPT/HCPCS: 96372; 99284; J2060; 99283

== ENCOUNTER 2017-02-10 09:13 | Emergency (ER) | payer BC ==
[2017-02-10 09:29] VITALS: BP 114/69
[2017-02-10] MEDS ORDERED: LORazepam 2 MG/ML MDV IVPUSH ONE (09:41)
--- NOTE | 2017-02-10 09:44 | EDM.PDOCBH ---
ED HPI GENERAL MEDICAL PROBLEM - General Chief Complaint: Behavioral/Psych Stated Complaint: BEHAVIORAL ISSUES Time Seen by Provider: 02/10/17 09:39 Source of Information: Reports: Patient, Family (spouse) History Limitations: Reports: No Limitations - History of Present Illness INITIAL COMMENTS - FREE TEXT/NARRATIVE: 61-year-old female who is known to suffer from underlying psychiatric disorder mainly that of generalized anxiety disorder with major depression for many years presents to the ED with concerns about possibility of serotonin syndrome. She is currently on Remeron and Paxil and has done some reading on the Internet. Patient does not have a fever any rigidity or hyperreflexia or sustained clonus to suggest any serotonin syndrome. Patient is currently on clonazepam 1 mg 4 times a day and Ativan 1 mg 4 times a da and recently her anxiety is out of control. She presents hyperventilating and keeps repeating am going to make it aren't I , I am going to make it aren't I.. Sleep has been poor in spite of Remeron at bedtime. It appears recently she's been taken off of antipsychotic medications risperidone and loxapine and Cogentin and states he really didn't notice any difference off of medication or on it. There' s been no nausea vomiting and the patient states her bowel movements are normal. Onset: Unknown/Unsure (Chronic problems.) Duration: Chronic Location: Reports: Generalized (Generalized anxiety disorder) Severity: Severe (Severe uncontrolled anxiety.) Improves with: Reports: None Worsens with: Reports: Other (Certain medication seemed to may have made the problem worse rather than better.) Context: Denies: Activity, Exercise, Lifting, Sick Contact, Trauma, Other Associated Symptoms: Reports: Confusion, Headaches, Malaise, Shortness of Breath , Weakness. Denies: Chest Pain, Cough, Diaphoresis, Fever/Chills, Nausea/ Vomiting (Hyperventilation.), Syncope Treatments FLOTATION TENDER: Reports: Other (see below) (None.) - Related Data Allergies Allergy/AdvReac Type Severity Reaction Status Date / Time celecoxib [From Celebrex] Allergy Other Verified 02/10/17 09:23 clarithromycin [From Biaxin] Allergy Other Verified 02/10/17 09:23 lisinopril Allergy Cough Verified 02/10/17 09:23 HCTZ Allergy Other Uncoded 12/11/16 10:38 Home Meds: Home Meds Ascorbic Acid [C-1000] 1,000 mg PO BID 12/11/16 [History] Bone Restore With Vitamin K2 1 tab PO BID 12/11/16 [History] Cholecalciferol (Vitamin D3) [Vitamin D3] 2,000 unit PO DAILY 12/11/16 [History] LORazepam [Ativan] 1 mg PO QID 12/11/16 [History] Losartan [Cozaar] 100 mg PO DAILY 12/11/16 [History] [place]-3/DHA/Epa/Fish Oil [Fish Oil 1,000 mg Softgel] 1 tab PO DAILY 12/11/16 [ History] PARoxetine HCl [Paroxetine HCl] 50 mg PO QPM 12/11/16 [History] Super Ubiquinol Coq10 1 cap PO DAILY 12/11/16 [History] amLODIPine [Norvasc] 10 mg PO DAILY 12/11/16 [History] ClonazePAM [KlonoPIN] 1 mg PO QID 02/07/17 [History] Lurasidone HCl [Latuda] 80 mg PO DAILY 02/07/17 [History] Mirtazapine [Remeron] 30 mg PO BEDTIME 02/07/17 [History] Atenolol [Tenormin] 50 mg PO DAILY 02/10/17 [History] ClonazePAM [KlonoPIN] 2 mg PO QID #120 tablet 02/10/17 [Rx] Pravastatin [Pravachol] 20 mg PO DAILY 02/10/17 [History] Past Medical History HEENT History: Reports: Impaired Vision Other HEENT History: wears eyeglasses Cardiovascular History: Reports: High Cholesterol, Hypertension Respiratory History: Reports: Pneumonia, Recurrent 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: Musculoskeletal History: Reports: Osteoarthritis Psychiatric History: Reports: Anxiety, Depression, Emotional Problems, Suicidal Ideation Other Psychiatric History: outpatient treatement at [facility] Hematologic History: Reports: Anemia - Past Surgical History Female Surgical History: Reports: Breast Biopsy, Section Social & Family History - Family History Family Medical History: Noncontributory - Tobacco Use Smoking Status *Q: Never Smoker Used Tobacco, but Quit: Yes Second Hand Smoke Exposure: No - Caffeine Use Caffeine Use: Reports: Coffee, Soda - Recreational Drug Use Recreational Drug Use: No - Living Situation & Occupation Living situation: Reports: , with Spouse Occupation: Retired ED ROS GENERAL - Review of Systems Review Of Systems: See Below Constitutional: Reports: Weakness, Fatigue. Denies: Fever, Chills, Malaise HEENT: Reports: Glasses Respiratory: Reports: Shortness of Breath Cardiovascular: Reports: Lightheadedness, Palpitations. Denies: Chest Pain ( Hyperventilation syndrome.), Blood Pressure Problem, Claudication, Dyspnea on Exertion, Edema, Orthopnea Endocrine: Reports: Fatigue GI/Abdominal: Denies: Abdominal Pain, Constipation, Diarrhea, Decreased Appetite , Hematemesis, Nausea, Stool Incontinence, Vomiting : Reports: No Symptoms Musculoskeletal: Reports: No Symptoms Skin: Reports: No Symptoms Neurological: Reports: Dizziness Psychiatric: Reports: Agitation, Anxiety. Denies: Cravings, Depression, Hallucinations, Homicidal Ideation, Mood Lability, Suicidal Ideation Hematologic/Lymphatic: Reports: No Symptoms Immunologic: Reports: No Symptoms ED EXAM, BEHAVIORAL HEALTH - Physical Exam Exam: See Below Exam Limited By: Other (Patient does answer questions appropriately. She is extremely anxious at this time.) General Appearance: Anxious, Moderate Distress Eye Exam: Bilateral Eye: Normal Inspection Throat/Mouth: Normal Inspection, Normal Lips, Normal Oropharynx Head: Normocephalic, Sinus Tenderness Neck: Normal Inspection, Supple, Non-Tender, Full Range of Motion. No: Lymphadenopathy (L), Lymphadenopathy (R) Respiratory/Chest: Lungs Clear, Normal Breath Sounds (Tachypnea due to hyperventilation syndrome.), No Accessory Muscle Use, Respiratory Distress Cardiovascular: Normal Peripheral Pulses, Regular Rate, Rhythm, No Edema, No Murmur GI/Abdominal: Normal Bowel Sounds, Soft, Non-Tender, No Organomegaly, Other ( Mild tympany upper abdomen compatible with some degree of aerophagia.) Back Exam: Normal Inspection, Full Range of Motion. No: CVA Tenderness (L), CVA Tenderness (R) Extremities: Normal Inspection, Normal Range of Motion, Non-Tender, No Pedal Edema Neurological: Alert, CN II-XII Intact, Normal Cognition, Normal Reflexes, No Motor/Sensory Deficits, Oriented x 3 Psychiatric: Alert, Flat Affect, Poor Eye Contact, Other Skin Exam: Warm, Dry, Intact, Normal color, Other (Patient shakes are ruborous and warm to palpation but she does not have a fever.) EKG INTERPRETATION EKG Date: 02/10/17 Time: 09:55 Rhythm: NSR Rate (Beats/Min): 68 [place]: Normal QRS: Other (Left ventricular hypertrophy pattern.) ST-T: Other (Q waves in 1 in V1 and near Q-wave in V2 consider old anteroseptal myocardial infarction.) QT: Prolonged (Mildly prolonged.) EKG Interpretation Comments: Abnormal ECG COURSE, BEHAVIORAL HEALTH COMP - Course Vital Signs: Last Vital Signs Temp 37.0 C 02/10/17 09:23 Pulse 78 02/10/17 09:23 Resp 36 H 02/10/17 09:23 BP 114/69 02/10/17 09:23 Pulse Ox 98 02/10/17 09:23 Orders, Labs, Meds: Active Orders 24 hr Category Date Time Status EKG Documentation Completion [RC] STAT Care 02/10/17 09:40 Active Laboratory Tests 02/10/17 02/10/17 02/10/17 Range/Units 10:15 10:15 10:15 WBC 5.29 (3.98-10.04) K/mm3 RBC 4.46 (3.98-5.22) M/mm3 Hgb 14.5 (11.2-15.7) gm/L Hct 44.3 (34.1-44.9) % MCV 99.3 H (79.4-94.8) fl MCH 32.5 H (25.6-32.2) pg MCHC 32.7 (32.2-35.5) g/dl RDW Std Deviation 46.5 H (36.4-46.3) fL Plt Count 253 (182-369) K/mm3 MPV 10.6 (9.4-12.3) fl Neutrophils % (Manual) 59 (40-60) % Band Neutrophils % 1 (0-10) % Lymphocytes % (Manual) 36 (20-40) % Atypical Lymphs % 0 % Monocytes % (Manual) 1 L (2-10) % Eosinophils % (Manual) 2 (0.7-5.8) % Basophils % (Manual) 1 (0.1-1.2) Platelet Estimate Adequate RBC Morph Comment Normal Sodium 139 (136-145) mEq/L Potassium 3.8 (3.5-5.1) mEq/L Chloride 102 (98-107) mEq/L Carbon Dioxide 25 (21-32) mEq/L Anion Gap 15.8 H (5-15) BUN 10 (7-18) mg/dL Creatinine 0.9 (0.55-1.02) mg/dL Est Cr Clr Drug Dosing 58.12 mL/min Estimated GFR (MDRD) > 60 (>60) mL/min BUN/Creatinine Ratio 11.1 L (14-18) Glucose 112 H (74-106) mg/dL Calcium 9.3 (8.5-10.1) mg/dL Total Bilirubin 0.5 (0.2-1.0) mg/dL AST 21 (15-37) U/L ALT 37 (14-59) U/L Alkaline Phosphatase 80 (46-116) U/L Creatine Kinase 146 (26-192) U/L C-Reactive Protein 0.5 (<1.0) mg/dL Total Protein 7.4 (6.4-8.2) g/dl Albumin 3.7 (3.4-5.0) g/dl Globulin 3.7 gm/dL Albumin/Globulin Ratio 1.0 (1-2) Vitamin B12 (193-986) pg/ml Folate (8.6-58.9) ng/mL TSH 3rd Generation 0.815 (0.358-3.74) uIU/mL Urine Color (Yellow) Urine Appearance (Clear) Urine pH (5.0-8.0) Ur Specific [place] (1.005-1.030) Urine Protein (Negative) Urine Glucose (UA) (Negative) Urine Ketones (Negative) Urine Occult Blood (Negative) Urine Nitrite (Negative) Urine Bilirubin (Negative) Urine Urobilinogen (0.2-1.0) Ur Leukocyte Esterase (Negative) Urine RBC (0-5) /hpf Urine WBC (0-5) /hpf Ur Epithelial Cells (0-5) /hpf Urine Bacteria (FEW) /hpf Urine Mucus (FEW) /hpf Urine Opiates Screen (NEGATIVE) Ur Buprenorphine Scrn (NEGATIVE) Ur Oxycodone Screen (NEGATIVE) Urine Methadone Screen (NEGATIVE) Ur Propoxyphene Screen (NEGATIVE) Ur Barbiturates Screen (NEGATIVE) Ur Tricyclics Screen (NEGATIVE) Ur Phencyclidine Scrn (NEGATIVE) Ur Amphetamine Screen (NEGATIVE) U Methamphetamines Scrn (NEGATIVE) U Benzodiazepines Scrn (NEGATIVE) U Cocaine Metab Screen (NEGATIVE) U Marijuana (THC) Screen (NEGATIVE) Ethyl Alcohol 0.00 (0.00) gm% 02/10/17 02/10/17 02/10/17 Range/Units 10:15 10:20 10:20 WBC (3.98-10.04) K/mm3 RBC (3.98-5.22) M/mm3 Hgb (11.2-15.7) gm/L Hct (34.1-44.9) % MCV (79.4-94.8) fl MCH (25.6-32.2) pg MCHC (32.2-35.5) g/dl RDW Std Deviation (36.4-46.3) fL Plt Count (182-369) K/mm3 MPV (9.4-12.3) fl Neutrophils % (Manual) (40-60) % Band Neutrophils % (0-10) % Lymphocytes % (Manual) (20-40) % Atypical Lymphs % % Monocytes % (Manual) (2-10) % Eosinophils % (Manual) (0.7-5.8) % Basophils % (Manual) (0.1-1.2) Platelet Estimate RBC Morph Comment Sodium (136-145) mEq/L Potassium (3.5-5.1) mEq/L Chloride (98-107) mEq/L Carbon Dioxide (21-32) mEq/L Anion Gap (5-15) BUN (7-18) mg/dL Creatinine (0.55-1.02) mg/dL Est Cr Clr Drug Dosing mL/min Estimated GFR (MDRD) (>60) mL/min BUN/Creatinine Ratio (14-18) Glucose (74-106) mg/dL Calcium (8.5-10.1) mg/dL Total Bilirubin (0.2-1.0) mg/dL AST (15-37) U/L ALT (14-59) U/L Alkaline Phosphatase (46-116) U/L Creatine Kinase (26-192) U/L C-Reactive Protein (<1.0) mg/dL Total Protein (6.4-8.2) g/dl Albumin (3.4-5.0) g/dl Globulin gm/dL Albumin/Globulin Ratio (1-2) Vitamin B12 1403 H (193-986) pg/ml Folate 43.7 (8.6-58.9) ng/mL TSH 3rd Generation (0.358-3.74) uIU/mL Urine Color Yellow (Yellow) Urine Appearance Clear (Clear) Urine pH 7.0 (5.0-8.0) Ur Specific [place] 1.015 (1.005-1.030) Urine Protein Negative (Negative) Urine Glucose (UA) Negative (Negative) Urine Ketones Negative (Negative) Urine Occult Blood Negative (Negative) Urine Nitrite Negative (Negative) Urine Bilirubin Negative (Negative) Urine Urobilinogen 0.2 (0.2-1.0) Ur Leukocyte Esterase Negative (Negative) Urine RBC 0-5 (0-5) /hpf Urine WBC 0-5 (0-5) /hpf Ur Epithelial Cells 0-5 (0-5) /hpf Urine Bacteria Few (FEW) /hpf Urine Mucus Not seen (FEW) /hpf Urine Opiates Screen Negative (NEGATIVE) Ur Buprenorphine Scrn Negative (NEGATIVE) Ur Oxycodone Screen Negative (NEGATIVE) Urine Methadone Screen Negative (NEGATIVE) Ur Propoxyphene Screen Negative (NEGATIVE) Ur Barbiturates Screen Negative (NEGATIVE) Ur Tricyclics Screen Negative (NEGATIVE) Ur Phencyclidine Scrn Negative (NEGATIVE) Ur Amphetamine Screen Negative (NEGATIVE) U Methamphetamines Scrn Negative (NEGATIVE) U Benzodiazepines Scrn Presumptive positive H (NEGATIVE) U Cocaine Metab Screen Negative (NEGATIVE) U Marijuana (THC) Screen Negative (NEGATIVE) Ethyl Alcohol (0.00) gm% Medications Discontinued Medications Generic Name Dose Route Start Last Admin Trade Name Freq PRN Reason Stop Dose Admin Dextrose/Sodium Chloride 1,000 mls @ 200 mls/hr 02/10/17 09:45 02/10/17 09:58 Dextrose 5%-Normal Saline IV 200 mls/hr ASDIRECTED FAUSTINO Administration Lorazepam 2 mg 02/10/17 09:41 02/10/17 09:59 Ativan IVPUSH 02/10/17 09:42 2 mg ONETIME ONE Administration Re-Assessment/Re-Exam: 61-year-old female presents the ED with uncontrolled hyperventilation syndrome and generalized anxiety disorder that is poorly controlled on medications. It appears that her anxiety may have worsened since the addition of Paxil and mirtazapine. She has been weaned off or it stopped her antipsychotic medications which her feels hasn't made any difference. She has primary care for by Dr. Arce at the [facility] through tele-medicine. Physical examination is otherwise normal other than hyperventilation syndrome. Plan routine labs and a urine drug screen. I doubt that she is using any other street drugs. She does not drink alcohol. Plan IV normal saline at 200 mils per hour. Given Ativan 2 mg IV. Re-Assessment/Re-Exam Date: 02/10/17 (11:15: Patient remains quite anxious and asking for something to drink almost constantly. She said 6 glasses of water since being in the ED as well as some coke and some Gatorade. She is therefore exhibiting polydipsia. Labs are still pending. The only the hematology is back and it reveals an MCV of 99.3 suggesting possibility of folic acid or B12 deficiency. I therefore ordered these tests. Her hemoglobin is good at 14.5 and hematocrit is 44.3. Platelets are normal at 10 53,000. White count is normal at 5.29 with 59% neutrophils 1% bands. Urine drug screen was positive only for benzodiazepines and was otherwise normal. Ketamine chemistry is pending.) Re-Assessment/Re-Exam Time: 11:43 (Chemistries returned and is essentially all normal as well. TSH is low normal but not in the hyperthyroid range. I will call her later with the B12 and folic acid levels once they become available. In the meantime I'm going to suggest increasing her clonazepam to 2 mg 4 times a day as she has developed a tolerance to this medication in the hopes that this will help bring her to severe generalized anxiety under better control. At this point time she is essentially nonfunctional because of the anxiety. They will also start on vitamin B-12 1000 g daily.) Departure - Departure Time of Disposition: 11:45 Disposition: Home, Self-Care 01 Condition: Poor Clinical Impression: Generalized anxiety disorder - Discharge Information Prescriptions: ClonazePAM [KlonoPIN] 2 mg PO QID #120 tablet Instructions: Panic Attacks, [id number] Referrals: Amanda Herman COILER OPERATOR [Primary Care Provider] - Forms: ED Department Discharge Additional Instructions: Evaluation the emergency room today in regards to severe generalized anxiety disorder that is been going on for many years. Hyperventilation syndrome upon arrival this morning. Concerns arose about mixtures of medications protect potentially causing some side effects such as serotonin syndrome. Is no evidence clinically of serotonin induced syndrome and this usually only occurs with overdose of medications. Complete lab work was carried out and did not find any abnormalities. The only abnormal.lab value was an elevated mean corpuscular volume of the Red cell indicating that they are larger than normal which can mean folic acid or B12 deficiency. I did order both of these values but they may not become available for several hours. I would suggest starting a B12 supplement with 1000 g by mouth once daily. It's obvious that the anxiety disorder is poorly controlled at this time and it may be due to becoming so used to the current medications at their not working well. I'm suggesting increasing her Klonopin to 2 mg 4 times daily instead of 1 mg 4 times daily to see if it helps with anxiety relief. Help with psychiatry next week as planned. - My Orders Last 24 Hours: My Active Orders 02/10/17 09:40 EKG Documentation Completion [RC] STAT - Assessment/Plan Last 24 Hours: My Active Orders 02/10/17 09:40 EKG Documentation Completion [RC] STAT
[2017-02-10] MEDS ORDERED: Dextrose 5%-0.9% NaCl 1,000 ML IV SCH (09:45)
== END 2017-02-10 12:05 | disposition home or self-care (01) ==
LOC: JD.ED 09:13
DX: F41.1 Generalized anxiety disorder (principal); I10 Essential (primary) hypertension; E78.00 Pure hypercholesterolemia, unspecified; M19.90 Unspecified osteoarthritis, unspecified site; F32.9 Major depressive disorder, single episode, unspecified; Z86.2 Personal history of diseases of the blood and blood-forming organs and certain disorders involving the immune mechanism; Z87.891 Personal history of nicotine dependence; Z79.899 Other long term (current) drug therapy; Z88.1 Allergy status to other antibiotic agents; Z88.8 Allergy status to other drugs, medicaments and biological substances
CPT/HCPCS: 36415; 80053; 80306; 81001; 82550; 82607; 82746; 84443; 85025; 86140; 93005; 96361; 96374; 99284; G0480; J2060; J7042

== ENCOUNTER 2017-02-11 12:21 | Emergency (ER) | payer BC ==
[2017-02-11] MEDS ORDERED: LORazepam 2 MG/ML MDV IVPUSH ONE (12:52)
--- NOTE | 2017-02-11 13:00 | EDM.PDOCBH ---
ED HPI GENERAL MEDICAL PROBLEM - General Chief Complaint: Behavioral/Psych Stated Complaint: [facility] Time Seen by Provider: 02/11/17 12:33 Source of Information: Reports: Patient, EMS History Limitations: Reports: No Limitations - History of Present Illness INITIAL COMMENTS - FREE TEXT/NARRATIVE: 61 year old female presents via [facility] for evaluation treatment of a panic attack. Patient received 1 mg IV Ativan in route. Patient reports that she has been feeling dizzy recently. Attributes this to her medication changes. She states that she fell today and hit the back of her head. She fell from a standing position. She did not lose consciousness. She has not had a current headache. She reports that she has some blurry vision and feels dizzy still but has not had any nausea or vomiting. Patient reports that this panic attack doesn't feel any different from previous ones. She denies any suicidal or homicidal ideation. She denies any suicidal or homicidal plan. Patient has been seen Dr. Ramachandran at [facility]. Most recent visit was about 2 weeks ago. During this visit Ativan 1 mg 4 times a day was added to her medication regime. She has been seen frequently for panic attacks recently in the ER. This is her third visit within the last 4 days. Yesterday her clonazepam was increased from 1 mg 4 times a day to 2 mg 4 times a day. She was also instructed to start B12. reports that the tried the 2 mg 4 times a day but this made her so sedated. They then scaled back to 1 1/2 mg 4 times a day and this seemed to work well for her. Treatments CAN CAPPER: Reports: Other (see below) (ativan 1mg IV) Other Treatments CAN CAPPER: Ativan - Related Data Allergies Allergy/AdvReac Type Severity Reaction Status Date / Time celecoxib [From Celebrex] Allergy Other Verified 02/11/17 12:30 clarithromycin [From Biaxin] Allergy Other Verified 02/11/17 12:30 lisinopril Allergy Cough Verified 02/11/17 12:30 HCTZ Allergy Other Uncoded 12/11/16 10:38 Home Meds: Home Meds Ascorbic Acid [C-1000] 1,000 mg PO BID 12/11/16 [History] Bone Restore With Vitamin K2 1 tab PO BID 12/11/16 [History] Cholecalciferol (Vitamin D3) [Vitamin D3] 2,000 unit PO DAILY 12/11/16 [History] LORazepam [Ativan] 1 mg PO QID 12/11/16 [History] Losartan [Cozaar] 100 mg PO DAILY 12/11/16 [History] [place]-3/DHA/Epa/Fish Oil [Fish Oil 1,000 mg Softgel] 1 tab PO DAILY 12/11/16 [ History] PARoxetine HCl [Paroxetine HCl] 50 mg PO QPM 12/11/16 [History] Super Ubiquinol Coq10 1 cap PO DAILY 12/11/16 [History] amLODIPine [Norvasc] 10 mg PO DAILY 12/11/16 [History] ClonazePAM [KlonoPIN] 1 mg PO QID 02/07/17 [History] Lurasidone HCl [Latuda] 80 mg PO DAILY 02/07/17 [History] Mirtazapine [Remeron] 30 mg PO BEDTIME 02/07/17 [History] Atenolol [Tenormin] 50 mg PO DAILY 02/10/17 [History] ClonazePAM [KlonoPIN] 2 mg PO QID #120 tablet 02/10/17 [Rx] Pravastatin [Pravachol] 20 mg PO DAILY 02/10/17 [History] Past Medical History HEENT History: Reports: Impaired Vision Other HEENT History: wears eyeglasses Cardiovascular History: Reports: High Cholesterol, Hypertension Respiratory History: Reports: Pneumonia, Recurrent 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: Musculoskeletal History: Reports: Osteoarthritis Psychiatric History: Reports: Anxiety, Depression, Emotional Problems, Suicidal Ideation Other Psychiatric History: outpatient treatement at [facility] Hematologic History: Reports: Anemia - Past Surgical History Female Surgical History: Reports: Breast Biopsy, Section Social & Family History - Family History Family Medical History: Noncontributory - Tobacco Use Smoking Status *Q: Never Smoker Used Tobacco, but Quit: Yes Second Hand Smoke Exposure: No - Caffeine Use Caffeine Use: Reports: None - Recreational Drug Use Recreational Drug Use: No - Living Situation & Occupation Living situation: Reports: , with Spouse Occupation: Retired ED ROS GENERAL - Review of Systems Review Of Systems: See Below GI/Abdominal: Denies: Nausea, Vomiting Neurological: Denies: Headache, Syncope Psychiatric: Reports: Anxiety. Denies: Homicidal Ideation, Suicidal Ideation ED EXAM, BEHAVIORAL HEALTH - Physical Exam Exam: See Below Exam Limited By: No Limitations General Appearance: Alert, WD/WN, Anxious, Obese Eye Exam: Bilateral Eye: Normal Inspection, PERRL Ears: Normal External Exam Nose: Normal Inspection Throat/Mouth: Normal Inspection, Normal Lips, Normal Voice, No Airway Compromise Head: Atraumatic, Normocephalic Neck: Normal Inspection, Non-Tender, Full Range of Motion Respiratory/Chest: No Respiratory Distress, Lungs Clear, Normal Breath Sounds, Other (hyperventilating) Cardiovascular: Normal Peripheral Pulses, Regular Rate, Rhythm, No Murmur Neurological: Alert, Normal Cognition Psychiatric: Alert, Flat Affect. No: Non-Communicative, Homicidal Thoughts, Suicidal Plan, Suicidal Thoughts Skin Exam: Warm, Diaphoretic COURSE, BEHAVIORAL HEALTH COMP - Course Vital Signs: Last Vital Signs Temp 36.4 C 02/11/17 12:26 Pulse 74 02/11/17 15:26 Resp 22 H 02/11/17 15:26 BP 148/74 H 02/11/17 15:26 Pulse Ox 100 02/11/17 15:26 Orders, Labs, Meds: Medications Discontinued Medications Generic Name Dose Route Start Last Admin Trade Name Galindo PRN Reason Stop Dose Admin Lorazepam 1 mg 02/11/17 12:52 02/11/17 13:06 Ativan IVPUSH 02/11/17 12:53 1 mg ONETIME ONE Administration Re-Assessment/Re-Exam: Upon arrival to the ER the patient is anxious. I ordered another 1 mg IV Ativan (she received 1mg IV ativan en route to the ER).. Her last dose of Ativan was at 9 AM. She had 1 mg of by mouth Ativan and 1/2 mg by mouth of clonazepam in addition to her regular 90 and medications. I discussed the case with [facility] human services. They informed me they're currently trying to get her into [facility]. They informed me that she is only able to go to [facility] from a hospital or ER. I spoke with Phil, is in charge of [facility]'s inpatient psychiatric services at [phone]. He tells me that given she is not suicidal homicidal at this time she would likely not meet inpatient criteria. They also do not have a bed open at this time. I asked about outpatient services. He then gave me the number to psychiatric outpatient services. I spoke with Bess at [facility] psyciatric outpatient services at . She recommends that we obtain a clinical summary, medication she has tried and their dosages, current diagnosis and any current concerns, recent hospitalization discharge summaries and other medications that she is on for medical reasons. Reports that they will then review her case and they will contact her if there able to offer her any additional treatments. 14:21 I discussed with Jayashree and her about my conservation with [facility]. There are open to going there for a second opinion. Jayashree states over and over again that she "cannot go home ". She states that she "cannot take care of herself." When I ask her if she is able to get dressed and make meal she tells me no but her tells me she is indeed able to do this. I inquired about home health services. They state they have phone numbers for home health. I will have social science teacher come and talk with them. At this point she is denying any suicidal or homicidal ideation or plan. I do not feel that she needs to the admitted but I also feel that she should have a second opinion. I will have social work come and see the patient in the ER for information on home health. 15:39 Social work was unable to come and see the patient in the ER. I was able to give her and her information on home health which I feel would be a good option for her if she feels she is unable to care for herself. Discharge vs Psych Eval/Treatment:: 02/11/17 15:42 Patient will be discharged home to her 's care. [facility] referral is in progress. Departure - Departure Time of Disposition: 15:39 Disposition: Home, Self-Care 01 Condition: Fair Clinical Impression: Anxiety disorder, Panic attack - Discharge Information Instructions: Panic Attacks Referrals: Deidre Ramachandran MD [Ordering Only Provider] - Forms: ED Department Discharge Additional Instructions: You may contact [facility] outpatient psychiatric services at [phone]. The current plan is that they will review your documentation and they will contact you if they are able to offer you any additional assistance. You may contact them in the interim if you have any questions. I asked that you contact the hospitals she has been hospitalized at and have them send a discharge summaries to [facility] outpatient psychiatric services. The fax number is [phone]. Continue on the clonazepam 1.5mg qid. Continue on your other medications as prescribed. Follow-up with Dr. Ramachandran while we are waiting to establish with [facility]. I recommend you follow-up with her this week or early next week. Please return to the ER should your symptoms change or worsen.
[2017-02-11 15:27] VITALS: BP 148/74
== END 2017-02-11 15:47 | disposition home or self-care (01) ==
LOC: JD.ED 12:21
DX: F41.0 Panic disorder [episodic paroxysmal anxiety] (principal); I10 Essential (primary) hypertension; E78.00 Pure hypercholesterolemia, unspecified; F32.9 Major depressive disorder, single episode, unspecified; M19.90 Unspecified osteoarthritis, unspecified site; Z86.2 Personal history of diseases of the blood and blood-forming organs and certain disorders involving the immune mechanism; Z87.891 Personal history of nicotine dependence; Z79.899 Other long term (current) drug therapy; Z88.1 Allergy status to other antibiotic agents; Z88.8 Allergy status to other drugs, medicaments and biological substances
CPT/HCPCS: 96374; 99284; J2060; 99285

== ENCOUNTER 2017-03-08 16:30 | Emergency (ER) | payer BC ==
[2017-03-08] MEDS ORDERED: Sodium Chloride 0.9% 10 ML Syringe FLUSH PRN (17:20)
[2017-03-08] MEDS ORDERED: Sodium Chloride 0.9% 1,000 ML IV ONE (17:20)
[2017-03-08] MEDS ORDERED: Ondansetron 4 MG/2 ML SDV IVPUSH ONE (17:20)
[2017-03-08] MEDS ORDERED: LORazepam 2 MG/ML MDV IVPUSH ONE (17:20)
--- NOTE | 2017-03-08 18:51 | EDM.PDOC ---
ED HPI GENERAL MEDICAL PROBLEM - General Chief Complaint: Gastrointestinal Problem Stated Complaint: DIARRHEA/VOMITTING 3 DAYS Time Seen by Provider: 03/08/17 17:00 Source of Information: Reports: Patient, Family History Limitations: Reports: No Limitations - History of Present Illness INITIAL COMMENTS - FREE TEXT/NARRATIVE: Patient is a 61-year-old female with a history of anxiety, bipolar, emotional problems, who presents to the ED anxious complaining of nausea/vomiting the past 3 days. Patient states she cannot keep anything down. States she's had [employer] this past Thursday and questions the burger was bad although she was nauseated the day before. States she is very anxious with and has been experiencing intermittent episodes of dizziness. She has tried to drink and eat unable to keep anything down. She has been taking all her medications as prescribed with no vomiting. She does complain of some generalized abdominal cramping. She denies any fever, chest pain, shortness of breath, blood in her stool, dysuria, generalized body aches, or any additional complaints. Abdomen Pain Score (Numeric/FACES): 6 - Related Data Allergies Allergy/AdvReac Type Severity Reaction Status Date / Time celecoxib [From Celebrex] Allergy Other Verified 02/11/17 12:30 clarithromycin [From Biaxin] Allergy Other Verified 02/11/17 12:30 lisinopril Allergy Cough Verified 02/11/17 12:30 HCTZ Allergy Other Uncoded 12/11/16 10:38 Home Meds: Home Meds Ascorbic Acid [C-1000] 1,000 mg PO BID 12/11/16 [History] Bone Restore With Vitamin K2 1 tab PO BID 12/11/16 [History] Cholecalciferol (Vitamin D3) [Vitamin D3] 2,000 unit PO DAILY 12/11/16 [History] LORazepam [Ativan] 1 mg PO QID 12/11/16 [History] Losartan [Cozaar] 100 mg PO DAILY 12/11/16 [History] [place]-3/DHA/Epa/Fish Oil [Fish Oil 1,000 mg Softgel] 1 tab PO DAILY 12/11/16 [ History] PARoxetine HCl [Paroxetine HCl] 50 mg PO QPM 12/11/16 [History] Super Ubiquinol Coq10 1 cap PO DAILY 12/11/16 [History] amLODIPine [Norvasc] 10 mg PO DAILY 12/11/16 [History] ClonazePAM [KlonoPIN] 1 mg PO QID 02/07/17 [History] Lurasidone HCl [Latuda] 80 mg PO DAILY 02/07/17 [History] Mirtazapine [Remeron] 30 mg PO BEDTIME 02/07/17 [History] Atenolol [Tenormin] 50 mg PO DAILY 02/10/17 [History] ClonazePAM [KlonoPIN] 2 mg PO QID #120 tablet 02/10/17 [Rx] Pravastatin [Pravachol] 20 mg PO DAILY 02/10/17 [History] Past Medical History HEENT History: Reports: Impaired Vision Other HEENT History: wears eyeglasses Cardiovascular History: Reports: High Cholesterol, Hypertension Respiratory History: Reports: Pneumonia, 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: Musculoskeletal History: Reports: Osteoarthritis Psychiatric History: Reports: Anxiety, Depression, Emotional Problems, Suicidal Ideation Other Psychiatric History: outpatient treatement at [facility] Hematologic History: Reports: Anemia - Past Surgical History Female Surgical History: Reports: Breast Biopsy, Section Social & Family History - Family History Family Medical History: Noncontributory - Tobacco Use Smoking Status *Q: Never Smoker Used Tobacco, but Quit: Yes Second Hand Smoke Exposure: No - Caffeine Use Caffeine Use: Reports: Coffee, Soda - Recreational Drug Use Recreational Drug Use: No - Living Situation & Occupation Living situation: Reports: , with Spouse Occupation: Retired ED ROS GENERAL - Review of Systems Review Of Systems: See Below Constitutional: Reports: Malaise, Fatigue, Decreased Appetite. Denies: Fever, Chills HEENT: Reports: No Symptoms Respiratory: Reports: No Symptoms Cardiovascular: Reports: No Symptoms GI/Abdominal: Reports: Abdominal Pain (generalized, crampy), Diarrhea (x3 no blood), Decreased Appetite, Nausea, Vomiting. Denies: Constipation : Reports: No Symptoms Musculoskeletal: Reports: No Symptoms Skin: Reports: No Symptoms Neurological: Reports: Dizziness (intermittent) ED EXAM, GI/ABD - Physical Exam Exam: See Below Exam Limited By: No Limitations General Appearance: Alert, WD/WN, Anxious Eyes: Bilateral: Normal Appearance, EOMI Ears: Normal External Exam, Hearing Grossly Normal Nose: Normal Mucosa, No Blood Throat/Mouth: Normal Inspection, Normal Oropharynx, Normal Voice, No Airway Compromise Head: Atraumatic, Normocephalic Neck: Normal Inspection, Supple Respiratory/Chest: No Respiratory Distress, Lungs Clear, Normal Breath Sounds, No Accessory Muscle Use Cardiovascular: Normal Peripheral Pulses, Regular Rate, Rhythm GI/Abdominal Exam: Normal Bowel Sounds, Soft, No Organomegaly, No Distention, Tender (generalized, mild) Neurological: Alert, Oriented, CN II-XII Intact, Normal Cognition, No Motor/ Sensory Deficits Psychiatric: Normal Affect, Normal Mood Skin Exam: Warm, Dry, Intact, Normal Color, No Rash Course - Vital Signs Last Recorded V/S: Last Vital Signs Temp 97.6 F 03/08/17 16:51 Pulse 70 03/08/17 18:55 Resp 24 H 03/08/17 18:55 BP 103/47 L 03/08/17 18:55 Pulse Ox 97 03/08/17 18:55 - Orders/Labs/Meds Orders: Active Orders 24 hr Category Date Time Status Peripheral IV Care [RC] . DIRECTED Care 03/08/17 17:20 Active Abdomen 1V Flat [CR] Stat Exams 03/08/17 17:19 Taken Peripheral IV Insertion Adult [OM.PC] Stat Oth 03/08/17 17:19 Ordered Labs: Laboratory Tests 03/08/17 03/08/17 03/08/17 Range/Units 17:20 17:40 17:45 WBC 9.76 (3.98-10.04) K/mm3 RBC 4.72 (3.98-5.22) M/mm3 Hgb 15.0 (11.2-15.7) gm/L Hct 45.2 H (34.1-44.9) % MCV 95.8 H (79.4-94.8) fl MCH 31.8 (25.6-32.2) pg MCHC 33.2 (32.2-35.5) g/dl RDW Std Deviation 44.2 (36.4-46.3) fL Plt Count 370 H (182-369) K/mm3 MPV 10.5 (9.4-12.3) fl Neut % (Auto) 58.6 (34.0-71.1) % Lymph % (Auto) 30.8 (19.3-51.7) % [place] % (Auto) 8.4 (4.7-12.5) % Eos % (Auto) 1.5 (0.7-5.8) Baso % (Auto) 0.5 (0.1-1.2) % Neut # (Auto) 5.71 (1.56-6.13) K/mm3 Lymph # (Auto) 3.01 (1.18-3.74) K/mm3 [place] # (Auto) 0.82 H (0.24-0.36) K/mm3 Eos # (Auto) 0.15 (0.04-0.36) K/mm3 Baso # (Auto) 0.05 (0.01-0.08) K/mm3 ABG pH 7.59 H (7.35-7.45) ABG pCO2 21.0 L (35.0-45.0) mmHg ABG pO2 70.0 L (80.0-100.0) mmHg ABG HCO3 20.3 L (22.0-26.0) meq/L ABG O2 Saturation 97.0 (96.0-97.0) % ABG Base Excess 0.8 (-2-2.0) Benoit Test Positive FiO2 0.00 L (21.00-100.00) % Sodium (136-145) mEq/L Potassium (3.5-5.1) mEq/L Chloride (98-107) mEq/L Carbon Dioxide (21-32) mEq/L Anion Gap (5-15) BUN (7-18) mg/dL Creatinine (0.55-1.02) mg/dL Est Cr Clr Drug Dosing mL/min Estimated GFR (MDRD) (>60) mL/min BUN/Creatinine Ratio (14-18) Glucose (74-106) mg/dL Calcium (8.5-10.1) mg/dL Total Bilirubin (0.2-1.0) mg/dL AST (15-37) U/L ALT (14-59) U/L Alkaline Phosphatase (46-116) U/L C-Reactive Protein (<1.0) mg/dL Total Protein (6.4-8.2) g/dl Albumin (3.4-5.0) g/dl Globulin gm/dL Albumin/Globulin Ratio (1-2) Lipase (73-393) U/L Urine Color Yellow (Yellow) Urine Appearance Clear (Clear) Urine pH 7.5 (5.0-8.0) Ur Specific [place] 1.015 (1.005-1.030) Urine Protein Negative (Negative) Urine Glucose (UA) Negative (Negative) Urine Ketones Negative (Negative) Urine Occult Blood Negative (Negative) Urine Nitrite Negative (Negative) Urine Bilirubin Negative (Negative) Urine Urobilinogen 0.2 (0.2-1.0) Ur Leukocyte Esterase Negative (Negative) Urine RBC 0-5 (0-5) /hpf Urine WBC 0-5 (0-5) /hpf Ur Epithelial Cells 0-5 (0-5) /hpf Urine Bacteria Few (FEW) /hpf Urine Mucus Not seen (FEW) /hpf 03/08/17 Range/Units 17:45 WBC (3.98-10.04) K/mm3 RBC (3.98-5.22) M/mm3 Hgb (11.2-15.7) gm/L Hct (34.1-44.9) % MCV (79.4-94.8) fl MCH (25.6-32.2) pg MCHC (32.2-35.5) g/dl RDW Std Deviation (36.4-46.3) fL Plt Count (182-369) K/mm3 MPV (9.4-12.3) fl Neut % (Auto) (34.0-71.1) % Lymph % (Auto) (19.3-51.7) % [place] % (Auto) (4.7-12.5) % Eos % (Auto) (0.7-5.8) Baso % (Auto) (0.1-1.2) % Neut # (Auto) (1.56-6.13) K/mm3 Lymph # (Auto) (1.18-3.74) K/mm3 [place] # (Auto) (0.24-0.36) K/mm3 Eos # (Auto) (0.04-0.36) K/mm3 Baso # (Auto) (0.01-0.08) K/mm3 ABG pH (7.35-7.45) ABG pCO2 (35.0-45.0) mmHg ABG pO2 (80.0-100.0) mmHg ABG HCO3 (22.0-26.0) meq/L ABG O2 Saturation (96.0-97.0) % ABG Base Excess (-2-2.0) Benoit Test FiO2 (21.00-100.00) % Sodium 140 (136-145) mEq/L Potassium 3.5 (3.5-5.1) mEq/L Chloride 103 (98-107) mEq/L Carbon Dioxide 23 (21-32) mEq/L Anion Gap 17.5 H (5-15) BUN 17 (7-18) mg/dL Creatinine 0.9 (0.55-1.02) mg/dL Est Cr Clr Drug Dosing 58.12 mL/min Estimated GFR (MDRD) > 60 (>60) mL/min BUN/Creatinine Ratio 18.9 H (14-18) Glucose 97 (74-106) mg/dL Calcium 10.1 (8.5-10.1) mg/dL Total Bilirubin 0.4 (0.2-1.0) mg/dL AST 20 (15-37) U/L ALT 37 (14-59) U/L Alkaline Phosphatase 73 (46-116) U/L C-Reactive Protein < 0.2 (<1.0) mg/dL Total Protein 7.7 (6.4-8.2) g/dl Albumin 3.9 (3.4-5.0) g/dl Globulin 3.8 gm/dL Albumin/Globulin Ratio 1.0 (1-2) Lipase 198 (73-393) U/L Urine Color (Yellow) Urine Appearance (Clear) Urine pH (5.0-8.0) Ur Specific [place] (1.005-1.030) Urine Protein (Negative) Urine Glucose (UA) (Negative) Urine Ketones (Negative) Urine Occult Blood (Negative) Urine Nitrite (Negative) Urine Bilirubin (Negative) Urine Urobilinogen (0.2-1.0) Ur Leukocyte Esterase (Negative) Urine RBC (0-5) /hpf Urine WBC (0-5) /hpf Ur Epithelial Cells (0-5) /hpf Urine Bacteria (FEW) /hpf Urine Mucus (FEW) /hpf Meds: Medications Discontinued Medications Generic Name Dose Route Start Last Admin Trade Name Freq PRN Reason Stop Dose Admin Sodium Chloride 1,000 mls @ 999 mls/hr 03/08/17 17:20 03/08/17 17:50 Normal Saline IV 03/08/17 18:20 999 mls/hr ONETIME ONE Administration Lorazepam 1 mg 03/08/17 17:20 03/08/17 17:50 Ativan IVPUSH 03/08/17 17:21 1 mg ONETIME ONE Administration Ondansetron HCl 4 mg 03/08/17 17:20 03/08/17 17:52 Zofran IVPUSH 03/08/17 17:21 4 mg ONETIME ONE Administration Sodium Chloride 10 ml 03/08/17 17:20 03/08/17 17:45 Saline Flush FLUSH 10 ml ASDIRECTED PRN Administration Keep Vein Open - Re-Assessments/Exams Free Text/Narrative Re-Assessment/Exam: Patient is anxious with increased breathing rate. Ordered peripheral IV with normal saline 999 MLS per hour, and Zofran 4 mg IVP. We'll order Ativan 1 mg IVP. Initial labs and studies include CBC, chem 14, lipase, UA, CRP, ABG, and abdomen two-view flat and upright. Per nursing staff patient requests to be discharged. Awaiting for results of labs prior to discharge. X-ray of the abdomen shows nonspecific air and stool patterns. No obvious signs concerning for obstruction. Reviewed with Dr. Beckford.Final interpretation pending Labs reviewed: CBC and chemistry panel essentially normal. CRP less than 0.2. Lipase 188. UA negative for infection. Blood gas was not collected for unknown reason. Patient does not want to wait to have this obtained. Wishes to be discharged. Nursing staff states ABG was completed just was not resulted out. ABG pH 7.59, PCO2 21, PO2 70, HCO3 20.3, O2 saturation 97, base excess 0.8, FI O2 0.0. Respiratory alkalosis. Patient is hyperventilating secondary to increased anxiety. Examination did not elicit any concerning findings. Lab work was essentially normal. She does have history of anxiety, depression, bipolar, and suicidal ideations. With examination patient's breathing rate increased and slowly improved with sitting down and asking additional questions. Do not believe current ABG findings to be concerning with present physical findings and history. Patient requests to be discharged home. 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 Continue to sip on small amounts of liquid including Powerade, Gatorade, or Pedialyte for the next 24 hours. Thereafter can start a bland diet for the next 24 hours. If no issues can advance to normal diet. Follow-up with primary care provider as needed. Return to the ED for any new or worsening symptoms. - My Orders Last 24 Hours: My Active Orders 03/08/17 17:19 Abdomen 1V Flat [CR] Stat Peripheral IV Insertion Adult [OM.PC] Stat 03/08/17 17:20 Peripheral IV Care [RC] . DIRECTED - Assessment/Plan Last 24 Hours: My Active Orders 03/08/17 17:19 Abdomen 1V Flat [CR] Stat Peripheral IV Insertion Adult [OM.PC] Stat 03/08/17 17:20 Peripheral IV Care [RC] . DIRECTED
[2017-03-08 19:11] VITALS: BP 103/47
--- NOTE | 2017-03-09 07:08 | CR ---
Abdomen: Supine view of the abdomen was obtained. Comparison: Prior abdominal x-ray of 10/21/16. Bowel gas pattern appears within normal limits. Minimal degenerative spurring is noted within the spine. Calcifications are seen within the pelvis which are felt compatible with phleboliths. No discrete soft tissue abnormality is identified. Impression: 1. Nonspecific supine abdominal x-ray with incidental findings as noted above. Diagnostic code #1
== END 2017-03-08 19:50 | disposition home or self-care (01) ==
LOC: JD.ED 16:30
DX: K52.9 Noninfective gastroenteritis and colitis, unspecified (principal); Z88.8 Allergy status to other drugs, medicaments and biological substances; Z79.899 Other long term (current) drug therapy; Z88.1 Allergy status to other antibiotic agents
CPT/HCPCS: 36415; 36600; 74000; 80053; 81001; 82803; 83690; 85025; 86140; 96361; 96374; 96375; 99284; J2060; J2405; J7040; J7050

== ENCOUNTER 2017-03-10 13:12 | Emergency (ER) | payer BC ==
[2017-03-10 13:29] VITALS: BP 101/79
[2017-03-10] MEDS ORDERED: Metoclopramide 10 MG/2 ML SDV IVPUSH ONE (13:29)
[2017-03-10] MEDS ORDERED: Dextrose 5%-0.9% NaCl 1,000 ML IV SCH ×2 (13:30→15:45)
[2017-03-10] MEDS ORDERED: LORazepam 2 MG/ML MDV IVPUSH ONE ×2 (13:30→14:35)
--- NOTE | 2017-03-10 13:31 | EDM.PDOC ---
ED HPI GENERAL MEDICAL PROBLEM - General Chief Complaint: Gastrointestinal Problem Stated Complaint: VOMITING/DIARRHEA Time Seen by Provider: 03/10/17 13:20 Source of Information: Reports: Patient, Family (spouse) History Limitations: Reports: Physical Impairment (Patient suffers from some severe psychiatric disorder including anxiety and depression and is difficult to get a good history from. Her spouse provided most of the history) - History of Present Illness INITIAL COMMENTS - FREE TEXT/NARRATIVE: 61-year-old female brought to the ED because of persistent nausea vomiting and reported diarrhea up to 6 loose large-volume stools per day for the last week. The question is whether or not she did get some food poisoning from a bad hamburger at [employer] last Thursday. She was seen over the weekend and had lab work carried out which I reviewed. She was mildly acidotic with a and a gap of 17.9 but no major I dim bounces. Stools have been ordered for culture and sensitivity but have not yet been collected by herself or her spouse. She complains of chronic nausea and intermittent abdominal cramps. No blood has been noted in the stool or diarrhea. She was seen in the clinic yesterday and apparently received a liter of fluids as well as the day prior. However she continues to remain ill. May well of foodborne illness causing current illness since it has lasted so long. She has not apparently been on any antibiotics in the last 6 weeks. Onset: Sudden Onset Date: 03/11/17 Duration: Day(s): Location: Reports: Abdomen (Large-volume diarrhea stool losses.) Quality: Reports: Other Severity: Moderate (Cramping abdominal pain) Improves with: Reports: None Worsens with: Reports: Eating Context: Denies: Activity (Or drinking.), Exercise, Lifting, Sick Contact, Other Associated Symptoms: Reports: Malaise, Nausea/Vomiting (she did keep pancakes down last night.), Weakness, Other (Dizzy when she stands up.). 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 (see below) Abdominal Pain Score (Numeric/FACES): 5 - Related Data Allergies Allergy/AdvReac Type Severity Reaction Status Date / Time celecoxib [From Celebrex] Allergy Other Verified 03/10/17 13:24 clarithromycin [From Biaxin] Allergy Other Verified 03/10/17 13:24 lisinopril Allergy Cough Verified 03/10/17 13:24 HCTZ Allergy Other Uncoded 03/10/17 13:24 Home Meds: Home Meds Cholecalciferol (Vitamin D3) [Vitamin D3] 2,000 unit PO DAILY 12/11/16 [History] LORazepam [Ativan] 1 mg PO QID 12/11/16 [History] Losartan [Cozaar] 100 mg PO DAILY 12/11/16 [History] Spencer-3/DHA/Epa/Fish Oil [Fish Oil 1,000 mg Softgel] 2 tab PO DAILY 12/11/16 [ History] PARoxetine HCl [Paroxetine HCl] 30 mg PO QPM 12/11/16 [History] amLODIPine [Norvasc] 10 mg PO DAILY 12/11/16 [History] Lurasidone HCl [Latuda] 40 mg PO DAILY 02/07/17 [History] Mirtazapine [Remeron] 30 mg PO BEDTIME 02/07/17 [History] Atenolol [Tenormin] 50 mg PO DAILY 02/10/17 [History] Pravastatin [Pravachol] 20 mg PO DAILY 02/10/17 [History] B Complex With Vitamin C [Support-500] 1 tab PO DAILY 03/10/17 [History] ClonazePAM [KlonoPIN] 1 mg PO QID 03/10/17 [History] Multivitamin. 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 History: Reports: Musculoskeletal History: Reports: Osteoarthritis Psychiatric History: Reports: Anxiety, Depression, Emotional Problems, Suicidal Ideation Other Psychiatric History: outpatient treatement at [facility] Hematologic History: Reports: Anemia - Past Surgical History Female Surgical History: Reports: Breast Biopsy, Section Social & Family History - Family History Family Medical History: Noncontributory - Tobacco Use Smoking Status *Q: Never Smoker Used Tobacco, but Quit: Yes Second Hand Smoke Exposure: No - Caffeine Use Caffeine Use: Reports: Coffee, Soda - Recreational Drug Use Recreational Drug Use: No - Living Situation & Occupation Living situation: Reports: , with Spouse Occupation: Retired ED ROS GENERAL - Review of Systems Review Of Systems: See Below Constitutional: Reports: Chills, Malaise, Weakness, Fatigue, Decreased Appetite , Weight Loss. Denies: Fever HEENT: Reports: No Symptoms Respiratory: Reports: No Symptoms Cardiovascular: Reports: Blood Pressure Problem (Often runs low.), Lightheadedness (Quite often), Palpitations (Quite often). Denies: Dyspnea on Exertion, Edema, Orthopnea Endocrine: Reports: Fatigue GI/Abdominal: Reports: Abdominal Pain (Intermittent periumbilical cramping abdominal pain), Diarrhea (Usually 5 or 6 large volume stool loss reported per day for the last week. No blood noted), Nausea, Vomiting (Mainly usually 4-5 times per day or every time she tries to eat or drink.) : Reports: No Symptoms, Other (Urinalysis done 2 days ago was normal) Musculoskeletal: Reports: Neck Pain, Back Pain Skin: Reports: No Symptoms Neurological: Reports: Dizziness, Difficulty Walking, Weakness. Denies: Headache (Especially with standing but not bad enough to throw off balance or make her worry about falling.), Numbness, Paresthesia, Pre-Existing Deficit, Seizure, Syncope, Tingling, Tremors, Trouble Speaking, Change in Speech, Gait Disturbance Psychiatric: Reports: Anxiety, Depression, Other (Has a masklike feces like parkinsonian patient.) Hematologic/Lymphatic: Reports: No Symptoms Immunologic: Reports: No Symptoms ED EXAM, GI/ABD - Physical Exam Exam: See Below Exam Limited By: Physical Impairment (Patient is actively hyperventilating and able to give answers to direct questions in short sentences. Her supplies most of the history.) General Appearance: Alert, Moderate Distress (Hyperventilation syndrome.) Eyes: Bilateral: Normal Appearance Throat/Mouth: Other Head: Atraumatic (Lips tongue and mouth are dry.), Normocephalic Neck: Normal Inspection, Supple, Non-Tender, Full Range of Motion. No: Lymphadenopathy (L), Lymphadenopathy (R), Thyromegaly Respiratory/Chest: Lungs Clear, Normal Breath Sounds, No Accessory Muscle Use, Chest Non-Tender, Respiratory Distress (Moderate tachypnea at rest 32/m. A hyperventilation syndrome) Cardiovascular: Normal Peripheral Pulses, Regular Rate, Rhythm, No Edema, No Gallop, No Murmur, No Rub GI/Abdominal Exam: Normal Bowel Sounds, Soft, Non-Tender, No Organomegaly Back Exam: Normal Inspection, Full Range of Motion. No: CVA Tenderness (L), CVA Tenderness (R) Extremities: Normal Inspection, Normal Range of Motion, Non-Tender, Pedal Edema (1+ bilaterally.) Neurological: Alert, Oriented, CN II-XII Intact, Normal Cognition, No Motor/ Sensory Deficits Psychiatric: Anxious, Flat Affect Skin Exam: Warm, Dry, Intact, Normal Color, No Rash Course - Vital Signs Last Recorded V/S: Last Vital Signs Temp 36.8 C 03/10/17 13:24 Pulse 77 03/10/17 13:24 Resp 32 H 03/10/17 13:24 BP 101/79 03/10/17 13:24 Pulse Ox 98 03/10/17 13:24 - Orders/Labs/Meds Orders: Active Orders 24 hr Category Date Time Status URINALYSIS W/MICROSCOPIC [UA W/MICROSCOPIC] [URIN] Stat Lab 03/10/17 15:22 Uncollected Dextrose 5%-0.9% NaCl [Dextrose 5%-Normal Saline] 1,000 Med 03/10/17 13:30 Active ml IV ASDIRECTED Dextrose 5%-0.9% NaCl [Dextrose 5%-Normal Saline] 1,000 Med 03/10/17 15:45 Active ml IV ASDIRECTED Medication Orders Dextrose/Sodium Chloride (Dextrose 5%-Normal Saline) 1,000 mls @ 999 mls/hr IV ASDIRECTED FAUSTINO Last Admin: 03/10/17 13:52 Dose: 999 mls/hr Dextrose/Sodium Chloride (Dextrose 5%-Normal Saline) 1,000 mls @ 999 mls/hr IV ASDIRECTED FAUSTINO Labs: Laboratory Tests 03/10/17 03/10/17 03/10/17 Range/Units 13:44 13:45 13:45 WBC 8.38 (3.98-10.04) K/mm3 RBC 4.51 (3.98-5.22) M/mm3 Hgb 14.5 (11.2-15.7) gm/L Hct 43.7 (34.1-44.9) % MCV 96.9 H (79.4-94.8) fl MCH 32.2 (25.6-32.2) pg MCHC 33.2 (32.2-35.5) g/dl RDW Std Deviation 43.8 (36.4-46.3) fL Plt Count 384 H (182-369) K/mm3 MPV 10.0 (9.4-12.3) fl Neutrophils % (Manual) 55 (40-60) % Band Neutrophils % 0 (0-10) % Lymphocytes % (Manual) 41 H (20-40) % Atypical Lymphs % 0 % Monocytes % (Manual) 2 (2-10) % Eosinophils % (Manual) 0 L (0.7-5.8) % Basophils % (Manual) 2 H (0.1-1.2) Platelet Estimate Adequate RBC Morph Comment Normal Sodium 141 (136-145) mEq/L Potassium 3.4 L (3.5-5.1) mEq/L Chloride 104 (98-107) mEq/L Carbon Dioxide 21 (21-32) mEq/L Anion Gap 19.4 H (5-15) BUN 7 (7-18) mg/dL Creatinine 0.9 (0.55-1.02) mg/dL Est Cr Clr Drug Dosing 60.56 mL/min Estimated GFR (MDRD) > 60 (>60) mL/min BUN/Creatinine Ratio 7.8 L (14-18) Glucose 86 (74-106) mg/dL Calcium 9.3 (8.5-10.1) mg/dL Total Bilirubin 0.5 (0.2-1.0) mg/dL AST 22 (15-37) U/L ALT 35 (14-59) U/L Alkaline Phosphatase 69 (46-116) U/L C-Reactive Protein < 0.2 (<1.0) mg/dL Total Protein 7.3 (6.4-8.2) g/dl Albumin 3.6 (3.4-5.0) g/dl Globulin 3.7 gm/dL Albumin/Globulin Ratio 1.0 (1-2) Lipase 121 (73-393) U/L Salicylates (2.8-20) mg/dL Ketones 0.17 (0.0-0.3) mM 03/10/17 Range/Units 13:45 WBC (3.98-10.04) K/mm3 RBC (3.98-5.22) M/mm3 Hgb (11.2-15.7) gm/L Hct (34.1-44.9) % MCV (79.4-94.8) fl MCH (25.6-32.2) pg MCHC (32.2-35.5) g/dl RDW Std Deviation (36.4-46.3) fL Plt Count (182-369) K/mm3 MPV (9.4-12.3) fl Neutrophils % (Manual) (40-60) % Band Neutrophils % (0-10) % Lymphocytes % (Manual) (20-40) % Atypical Lymphs % % Monocytes % (Manual) (2-10) % Eosinophils % (Manual) (0.7-5.8) % Basophils % (Manual) (0.1-1.2) Platelet Estimate RBC Morph Comment Sodium (136-145) mEq/L Potassium (3.5-5.1) mEq/L Chloride (98-107) mEq/L Carbon Dioxide (21-32) mEq/L Anion Gap (5-15) BUN (7-18) mg/dL Creatinine (0.55-1.02) mg/dL Est Cr Clr Drug Dosing mL/min Estimated GFR (MDRD) (>60) mL/min BUN/Creatinine Ratio (14-18) Glucose (74-106) mg/dL Calcium (8.5-10.1) mg/dL Total Bilirubin (0.2-1.0) mg/dL AST (15-37) U/L ALT (14-59) U/L Alkaline Phosphatase (46-116) U/L C-Reactive Protein (<1.0) mg/dL Total Protein (6.4-8.2) g/dl Albumin (3.4-5.0) g/dl Globulin gm/dL Albumin/Globulin Ratio (1-2) Lipase (73-393) U/L Salicylates 1.9 L (2.8-20) mg/dL Ketones (0.0-0.3) mM Meds: Medications Generic Name Dose Route Start Last Admin Trade Name Freq PRN Reason Stop Dose Admin Dextrose/Sodium Chloride 1,000 mls @ 999 mls/hr 03/10/17 13:30 03/10/17 13:52 Dextrose 5%-Normal Saline IV 999 mls/hr ASDIRECTED FAUSTINO Administration Dextrose/Sodium Chloride 1,000 mls @ 999 mls/hr 03/10/17 15:45 Dextrose 5%-Normal Saline IV ASDIRECTED FAUSTINO Discontinued Medications Generic Name Dose Route Start Last Admin Trade Name Freq PRN Reason Stop Dose Admin Acetaminophen 975 mg 03/10/17 16:08 03/10/17 16:14 Tylenol PO 03/10/17 16:09 975 mg NOW ONE Administration Hydromorphone HCl 0.5 mg 03/10/17 13:44 03/10/17 13:55 Dilaudid IVPUSH 03/10/17 13:45 0.5 mg ONETIME ONE Administration Lorazepam 1 mg 03/10/17 13:30 03/10/17 13:49 Ativan IVPUSH 03/10/17 13:31 1 mg ONETIME ONE Administration Lorazepam 2 mg 03/10/17 14:35 03/10/17 14:48 Ativan IVPUSH 03/10/17 14:36 2 mg ONETIME ONE Administration Metoclopramide HCl 7.5 mg 03/10/17 13:29 03/10/17 13:49 Reglan IVPUSH 03/10/17 13:30 7.5 mg ONETIME ONE Administration Midazolam HCl 2 mg 03/10/17 15:53 03/10/17 16:02 Versed 1 Mg/Ml IVPUSH 03/10/17 15:54 2 mg ONETIME ONE Administration - Radiology Interpretation Free Text/Narrative:: 61-year-old female once again presents to the ED because of intractable nausea vomiting and reported large volume stool losses 5-6 times per day for the last week. She may well of picked up foodborne illness. She states she noted [employer] last week in the hamburger did not taste right. She was a little nauseated before that however. She has been seen in the ED 2 days ago and in the clinic yesterday where she received a liter of fluids on both occasions. I reviewed the labs from Thursday's visit and she was showing signs of and I gap acidosis at 17.9. ABGs were done if her PCO2 was 21 compatible with hyperventilation response. She was also suffering a respiratory alkalosis. Urinalysis also done at that time and was negative. I would therefore not measured these today. CBC CMP and a lipase level will be done. Stool be collected if she has one while she is here for WBCs and culture. In the meantime IV will be D5 normal saline at open. Given Reglan 7.5 mg IV to arrest vomiting. Toradol 30 mg IV for abdominal pain. - Re-Assessments/Exams Free Text/Narrative Re-Assessment/Exam: 03/10/17 14:29 Labs reveal a normal white count at 8.38 with a 55% neutrophil count and 41% lymphocyte count. MCV is 96.9. Platelets are normal at 384,000. Sodium was 141 potassium slightly low at 3.4 chloride 104 bicarbonate is 21 and a gap is 19.4 indicating a significant metabolic acidosis. BUNs 7 creatinine is 0.9 EGFR is greater than 60. Glucose 86. Calcium 9.3 C-reactive protein is less than 0.2. Lipase normal at 121. Appears that she has a significant metabolic acidosis simply from not being able to eat. Will have serum ketones measured 03/10/17 14:29 IV will be open to full and she will require at least 2 L if not 3 L to correct the metabolic acidosis. The metabolic acidosis is likely causing the persistent vomiting in the stool could be starvation stools. She is still very anxious and stating that she wants to go home. She going to need to be here for a couple more hours to receive all the fluids she needs. I will give her Ativan 2 mg IV and nurses will put some of the IV fluids in the warmer. 03/10/17 15:22 serum ketones are 0.17.very high not enough to account for a elevated and a gap of 19.7. Therefore appears to be other organic acids causing the metabolic acidosis. I will order urinalysis to make sure he is not full of oxalate crystals. We will also order a salicylate level. 03/10/17 15:50 no she reports to me that the patient got up and was running for the door into her IV out. This is before she could complete or start the third unit of IV fluids which I feel she needs to correct her metabolic acidosis. I therefore advise restarting her IV to infuse the last liter of IV fluids. 03/10/17 17:22 patient past formed stool while here in the department. No evidence of any diarrhea. Therefore stool cultures orders will be discontinued. She also never provided a satisfactory urine specimen. Results contaminated with stool or some other problem in collecting it. Therefore I still do not have a good reason to account for her metabolic acidosis. Departure - Departure Time of Disposition: 17:33 Disposition: Home, Self-Care 01 Condition: Fair Clinical Impression: Volume depletion, gastrointestinal loss, Metabolic acidosis - Discharge Information Instructions: Dehydration, Adult, [id number], Metabolic Acidosis Referrals: Amanda Herman, [employer] MANAGER [Primary Care Provider] - Forms: ED Department Discharge Additional Instructions: Evaluation in the emergency department today in regards to a 1 week history of recurrent nausea vomiting and reported diarrhea. No diarrhea stools occurred while in the ED today. Lab work identified that you were significantly volume depleted with a metabolic acidosis which in itself can make you have nausea and vomiting. Therefore you were treated with 3 L of IV fluids to provide rehydration and correct metabolic acidosis. Suggest continued use of either Pepcid or Zantac twice daily to allow the stomach lining to heal after vomiting this many days in a row. May use Zofran under the tongue every 4 hours as needed for relief of nausea vomiting. Plenty of fluids such as Gatorade or Powerade or almost identical to what is in IV fluid. If you can tolerate clear fluids ,may advance your diet to crackers then to soup broth and then soup such as turkey rice ,turkey noodle etc. Stay away from all dairy products and no apple or grape juice until stools are formed back up. Although the stools passed in the emergency department were already formed up. May continue all of your other medications as per your usual. - My Orders Last 24 Hours: My Active Orders 03/10/17 13:30 Dextrose 5%-0.9% NaCl [Dextrose 5%-Normal Saline] 1,000 ml IV ASDIRECTED 03/10/17 15:22 URINALYSIS W/MICROSCOPIC [UA W/MICROSCOPIC] [URIN] Stat 03/10/17 15:45 Dextrose 5%-0.9% NaCl [Dextrose 5%-Normal Saline] 1,000 ml IV ASDIRECTED - Assessment/Plan Last 24 Hours: My Active Orders 03/10/17 13:30 Dextrose 5%-0.9% NaCl [Dextrose 5%-Normal Saline] 1,000 ml IV ASDIRECTED 03/10/17 15:22 URINALYSIS W/MICROSCOPIC [UA W/MICROSCOPIC] [URIN] Stat 03/10/17 15:45 Dextrose 5%-0.9% NaCl [Dextrose 5%-Normal Saline] 1,000 ml IV ASDIRECTED
[2017-03-10] MEDS ORDERED: HYDROmorphone 0.5 MG/0.5 ML Syringe IVPUSH ONE (13:44)
[2017-03-10] MEDS ORDERED: Midazolam 1 MG/ML 2 ML SDV IVPUSH ONE (15:53)
[2017-03-10] MEDS ORDERED: Acetaminophen 325 MG Tab PO ONE (16:08)
== END 2017-03-10 17:44 | disposition home or self-care (01) ==
LOC: JD.ED 13:12
DX: E86.9 Volume depletion, unspecified (principal); E87.4 Mixed disorder of acid-base balance; I10 Essential (primary) hypertension; E78.00 Pure hypercholesterolemia, unspecified; Z88.1 Allergy status to other antibiotic agents; Z88.8 Allergy status to other drugs, medicaments and biological substances; Z79.899 Other long term (current) drug therapy
CPT/HCPCS: 36415; 80053; 82009; 83690; 85025; 86140; 96361; 96374; 96375; 96376; 99284; A9270; G0480; J1170; J2060; J2250; J2765; J7042

== ENCOUNTER 2017-03-12 10:32 | Emergency (ER) | payer BC ==
[2017-03-12 10:52] VITALS: BP 150/74
--- NOTE | 2017-03-12 12:16 | EDM.PDOC ---
ED HPI GENERAL MEDICAL PROBLEM - General Chief Complaint: Lower Extremity Injury/Pain Stated Complaint: [facility] Time Seen by Provider: 03/12/17 11:41 Source of Information: Reports: Patient, Family () History Limitations: Reports: Other (Patient is a long history of psych conditions. is answering most questions. Patient repeating multiple times my knees hurt.) - History of Present Illness INITIAL COMMENTS - FREE TEXT/NARRATIVE: Patient's 61-year-old female presents ED complaining of bilateral knee pain. states patient was in the closet fell forward landing on her knees. Complaining of discomfort last night with no difficulties walking utilizing a walker. states this morning patient called him stating she cannot get out of bed because of her knees hurting. Patient does have known chronic knee discomfort. Knee joints are [id number]. There's been no swelling or ecchymosis noted. Bilateral Knee Pain Score (Numeric/FACES): 8 - Related Data Allergies Allergy/AdvReac Type Severity Reaction Status Date / Time celecoxib [From Celebrex] Allergy Other Verified 03/12/17 10:52 clarithromycin [From Biaxin] Allergy Other Verified 03/12/17 10:52 lisinopril Allergy Cough Verified 03/12/17 10:52 HCTZ Allergy Other Uncoded 03/10/17 13:24 Home Meds: Home Meds Cholecalciferol (Vitamin D3) [Vitamin D3] 2,000 unit PO DAILY 12/11/16 [History] LORazepam [Ativan] 1 mg PO QID 12/11/16 [History] Losartan [Cozaar] 100 mg PO DAILY 12/11/16 [History] [place]-3/DHA/Epa/Fish Oil [Fish Oil 1,000 mg Softgel] 2 tab PO DAILY 12/11/16 [ History] PARoxetine HCl [Paroxetine HCl] 30 mg PO QPM 12/11/16 [History] amLODIPine [Norvasc] 10 mg PO DAILY 12/11/16 [History] Lurasidone HCl [Latuda] 40 mg PO DAILY 02/07/17 [History] Mirtazapine [Remeron] 30 mg PO BEDTIME 02/07/17 [History] Atenolol [Tenormin] 50 mg PO DAILY 02/10/17 [History] Pravastatin [Pravachol] 20 mg PO DAILY 02/10/17 [History] B Complex With Vitamin C [Support-500] 1 tab PO DAILY 03/10/17 [History] ClonazePAM [KlonoPIN] 1 mg PO QID 03/10/17 [History] Multivitamin. 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: Musculoskeletal History: Reports: Osteoarthritis Psychiatric History: Reports: Anxiety, Depression, Emotional Problems, Suicidal Ideation Other Psychiatric History: outpatient treatement at [facility] Hematologic History: Reports: Anemia - Past Surgical History Female Surgical History: Reports: Breast Biopsy, Section Social & Family History - Family History Family Medical History: Noncontributory - Tobacco Use Smoking Status *Q: Never Smoker Used Tobacco, but Quit: Yes Second Hand Smoke Exposure: No - Caffeine Use Caffeine Use: Reports: None - Recreational Drug Use Recreational Drug Use: No - Living Situation & Occupation Living situation: Reports: , with Spouse Occupation: Retired Review of Systems - Review of Systems Review Of Systems: See Below Constitutional: Reports: No Symptoms Respiratory: Reports: No Symptoms Cardiovascular: Reports: No Symptoms GI/Abdominal: Reports: No Symptoms Genitourinary: Reports: No Symptoms Musculoskeletal: Reports: Joint Pain (Right left knee pain bilaterally) Skin: Reports: No Symptoms Neurological: Reports: No Symptoms ED EXAM, GENERAL - Physical Exam Exam: See Below Exam Limited By: No Limitations General Appearance: Alert, WD/WN, Anxious, Other (To examination patient is stating she wants to go to [place] repeatedly. In addition she states help me Dr. my knees hurt repeatedly. She is anxious. Vital signs are stable.) Ears: Hearing Grossly Normal Nose: Normal Inspection Throat/Mouth: Normal Voice, No Airway Compromise Head: Atraumatic, Normocephalic Neck: Normal Inspection, Supple Respiratory/Chest: No Respiratory Distress, Lungs Clear, Normal Breath Sounds, No Accessory Muscle Use Cardiovascular: Normal Peripheral Pulses, Regular Rate, Rhythm, No Murmur Peripheral Pulses: 2+: Radial (R) Extremities: Normal Inspection, Normal Range of Motion, Non-Tender, No Pedal Edema, Normal Capillary Refill, Other (On examination the right left knee no swelling, ecchymosis, decreased range of motion noted.) Neurological: Alert, CN II-XII Intact, Normal Cognition, No Motor/Sensory Deficits Psychiatric: Anxious, Other (Mild psychosis. ) Skin Exam: Warm, Dry, Intact, Normal Color, No Rash Course - Vital Signs Last Recorded V/S: Last Vital Signs Temp 97.4 F 03/12/17 10:43 Pulse 58 L 03/12/17 10:43 Resp 18 03/12/17 10:43 BP 150/74 H 03/12/17 10:43 Pulse Ox 100 03/12/17 10:43 - Orders/Labs/Meds Labs: Laboratory Tests 03/12/17 03/12/17 03/12/17 Range/Units 12:37 12:37 12:37 WBC 6.07 (3.98-10.04) K/mm3 RBC 4.50 (3.98-5.22) M/mm3 Hgb 14.4 (11.2-15.7) gm/L Hct 43.5 (34.1-44.9) % MCV 96.7 H (79.4-94.8) fl MCH 32.0 (25.6-32.2) pg MCHC 33.1 (32.2-35.5) g/dl RDW Std Deviation 43.9 (36.4-46.3) fL Plt Count 314 (182-369) K/mm3 MPV 10.0 (9.4-12.3) fl Neut % (Auto) 60.3 (34.0-71.1) % Lymph % (Auto) 31.3 (19.3-51.7) % [place] % (Auto) 4.8 (4.7-12.5) % Eos % (Auto) 3.3 (0.7-5.8) Baso % (Auto) 0.3 (0.1-1.2) % Neut # (Auto) 3.66 (1.56-6.13) K/mm3 Lymph # (Auto) 1.90 (1.18-3.74) K/mm3 [place] # (Auto) 0.29 (0.24-0.36) K/mm3 Eos # (Auto) 0.20 (0.04-0.36) K/mm3 Baso # (Auto) 0.02 (0.01-0.08) K/mm3 Sodium 144 (136-145) mEq/L Potassium 3.5 (3.5-5.1) mEq/L Chloride 110 H (98-107) mEq/L Carbon Dioxide 22 (21-32) mEq/L Anion Gap 15.5 H (5-15) BUN 7 (7-18) mg/dL Creatinine 0.8 (0.55-1.02) mg/dL Est Cr Clr Drug Dosing 65.38 mL/min Estimated GFR (MDRD) > 60 (>60) mL/min BUN/Creatinine Ratio 8.8 L (14-18) Glucose 100 (74-106) mg/dL Calcium 9.3 (8.5-10.1) mg/dL Total Bilirubin 0.6 (0.2-1.0) mg/dL AST 19 (15-37) U/L ALT 31 (14-59) U/L Alkaline Phosphatase 74 (46-116) U/L C-Reactive Protein 0.7 (<1.0) mg/dL Total Protein 7.2 (6.4-8.2) g/dl Albumin 3.5 (3.4-5.0) g/dl Globulin 3.7 gm/dL Albumin/Globulin Ratio 1.0 (1-2) TSH 3rd Generation 0.592 (0.358-3.74) uIU/mL Urine Color (Yellow) Urine Appearance (Clear) Urine pH (5.0-8.0) Ur Specific [place] (1.005-1.030) Urine Protein (Negative) Urine Glucose (UA) (Negative) Urine Ketones (Negative) Urine Occult Blood (Negative) Urine Nitrite (Negative) Urine Bilirubin (Negative) Urine Urobilinogen (0.2-1.0) Ur Leukocyte Esterase (Negative) Urine RBC (0-5) /hpf Urine WBC (0-5) /hpf Ur Epithelial Cells (0-5) /hpf Urine Bacteria (FEW) /hpf Urine Mucus (FEW) /hpf Urine Opiates Screen (NEGATIVE) Ur Buprenorphine Scrn (NEGATIVE) Ur Oxycodone Screen (NEGATIVE) Urine Methadone Screen (NEGATIVE) Ur Propoxyphene Screen (NEGATIVE) Ur Barbiturates Screen (NEGATIVE) Ur Tricyclics Screen (NEGATIVE) Ur Phencyclidine Scrn (NEGATIVE) Ur Amphetamine Screen (NEGATIVE) U Methamphetamines Scrn (NEGATIVE) U Benzodiazepines Scrn (NEGATIVE) U Cocaine Metab Screen (NEGATIVE) U Marijuana (THC) Screen (NEGATIVE) Ethyl Alcohol 0.00 (0.00) gm% 03/12/17 03/12/17 Range/Units 14:42 15:00 WBC (3.98-10.04) K/mm3 RBC (3.98-5.22) M/mm3 Hgb (11.2-15.7) gm/L Hct (34.1-44.9) % MCV (79.4-94.8) fl MCH (25.6-32.2) pg MCHC (32.2-35.5) g/dl RDW Std Deviation (36.4-46.3) fL Plt Count (182-369) K/mm3 MPV (9.4-12.3) fl Neut % (Auto) (34.0-71.1) % Lymph % (Auto) (19.3-51.7) % [place] % (Auto) (4.7-12.5) % Eos % (Auto) (0.7-5.8) Baso % (Auto) (0.1-1.2) % Neut # (Auto) (1.56-6.13) K/mm3 Lymph # (Auto) (1.18-3.74) K/mm3 [place] # (Auto) (0.24-0.36) K/mm3 Eos # (Auto) (0.04-0.36) K/mm3 Baso # (Auto) (0.01-0.08) K/mm3 Sodium (136-145) mEq/L Potassium (3.5-5.1) mEq/L Chloride (98-107) mEq/L Carbon Dioxide (21-32) mEq/L Anion Gap (5-15) BUN (7-18) mg/dL Creatinine (0.55-1.02) mg/dL Est Cr Clr Drug Dosing mL/min Estimated GFR (MDRD) (>60) mL/min BUN/Creatinine Ratio (14-18) Glucose (74-106) mg/dL Calcium (8.5-10.1) mg/dL Total Bilirubin (0.2-1.0) mg/dL AST (15-37) U/L ALT (14-59) U/L Alkaline Phosphatase (46-116) U/L C-Reactive Protein (<1.0) mg/dL Total Protein (6.4-8.2) g/dl Albumin (3.4-5.0) g/dl Globulin gm/dL Albumin/Globulin Ratio (1-2) TSH 3rd Generation (0.358-3.74) uIU/mL Urine Color Yellow (Yellow) Urine Appearance Clear (Clear) Urine pH 8.5 H (5.0-8.0) Ur Specific [place] 1.015 (1.005-1.030) Urine Protein Negative (Negative) Urine Glucose (UA) Negative (Negative) Urine Ketones Negative (Negative) Urine Occult Blood Negative (Negative) Urine Nitrite Negative (Negative) Urine Bilirubin Negative (Negative) Urine Urobilinogen 0.2 (0.2-1.0) Ur Leukocyte Esterase Negative (Negative) Urine RBC 0-5 (0-5) /hpf Urine WBC 0-5 (0-5) /hpf Ur Epithelial Cells Not seen (0-5) /hpf Urine Bacteria Rare (FEW) /hpf Urine Mucus Few (FEW) /hpf Urine Opiates Screen Negative (NEGATIVE) Ur Buprenorphine Scrn Negative (NEGATIVE) Ur Oxycodone Screen Negative (NEGATIVE) Urine Methadone Screen Negative (NEGATIVE) Ur Propoxyphene Screen Negative (NEGATIVE) Ur Barbiturates Screen Negative (NEGATIVE) Ur Tricyclics Screen Negative (NEGATIVE) Ur Phencyclidine Scrn Negative (NEGATIVE) Ur Amphetamine Screen Negative (NEGATIVE) U Methamphetamines Scrn Negative (NEGATIVE) U Benzodiazepines Scrn Presumptive positive H (NEGATIVE) U Cocaine Metab Screen Negative (NEGATIVE) U Marijuana (THC) Screen Negative (NEGATIVE) Ethyl Alcohol (0.00) gm% Meds: Medications Discontinued Medications Generic Name Dose Route Start Last Admin Trade Name Freq PRN Reason Stop Dose Admin Clonazepam 1 mg 03/12/17 12:54 03/12/17 13:06 Klonopin PO 03/12/17 12:55 1 mg BEDTIME ONE Administration Haloperidol Lactate 5 mg 03/12/17 15:12 03/12/17 15:20 Haldol IM 03/12/17 15:13 5 mg ONETIME ONE Administration Lorazepam 1 mg 03/12/17 12:54 03/12/17 13:06 Ativan PO 03/12/17 12:55 1 mg ONETIME ONE Administration Lorazepam 2 mg 03/12/17 16:09 03/12/17 16:25 Ativan IM 03/12/17 16:10 2 mg ONETIME ONE Administration - Re-Assessments/Exams Free Text/Narrative Re-Assessment/Exam: Patient is a 61-year-old female with a long history of psych issues. She was seen here on 2 different occasions recently for GI complaints. These symptoms have since resolved. states patient's been drinking fluids and eating normal diet with no further nausea vomiting or diarrhea. states he recently had a phone call from [facility] today rescheduling appointment for this April. Patient appears to be upset that the appointment is not today and has been yelling she wants to go to [place], my knees are hurting, and she wants to go home repeatedly. Will obtain basic labs and also x-rays of the knees bilaterally. 03/12/17 12:54 Per nursing staff patient usually gets ativan 1mg PO and clonazepam 1 mg PO every 4hrs. Ordered these medications. 03/12/17 13:24 Labs reviewed: CBC and chemistry panel did not reveal any concerning findings. CRP was within normal limits. Patient resting comfortably. X-ray of the right left knee revealed degenerative changes noted bony abnormalities. Per nursing staff patient got out of bed and stood up with no difficulties. Reevaluation prior to discharge. Patient resting in bed after receiving clonazepam and Ativan. Patient is laying there grunting while breathing not responding to any stimuli at this point. Pupils are reactive to light. Suspect this is due to heavy sedation with the above medications. She had no concerning findings on examination to the ED prior to administration except for high levels anxiety. states current symptoms are similar to episode that occurred last year that required inpatient psychiatric evaluation. He is requesting inpatient psych evaluation. States the patient has been more anxious yelling out Will have marriage and family social worker involved in placement. Ordered TSH, serum EtOH, urine drug tox, and UA in addition to the above labs. CT of the head will be obtained as well due to altered mental status change. 03/12/17 15:13 Labs reviewed: CBC and chemistry panel essentially normal. CRP and TSH within normal limits. Symmetry 0.00. UA and urine drug tox pending. CT of the head impression: No acute intracranial abnormalities is identified. No significant changes seen from prior head CT study. Per marriage and family social worker [place], [facility], and [place] are all full for adults psych needs. They are arranging placement to [facility] and transport. Urine drug tox positive for benzodiazepines. Reassessment, patient continues to repeat herself stating she wants to go home over and over again. She has been attempting to get up out of bed. Ordered Haldol 5 mg IM. 03/12/17 15:45 [facility] has accepted patient. Attempting to arrange transport. 03/12/17 16:05 reassessment, Haldol did not work. Patient requires additional dosing of Ativan 2 mg IM. Patient is anxious and wishing to be out of bed. 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 03/12/17 16:15 [facility] will be transporting the patient. 03/12/17 17:40 [facility] has arrived. 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 by Rae with [employer]. Transfer paperwork completed. Departure - Departure Time of Disposition: 18:00 Disposition: DC/Tfer to Psych Hosp/Unit 65 Condition: Poor Clinical Impression: Anxiety Psychosis Qualifiers: Psychosis type: unspecified psychosis type Qualified Code(s): F29 - Unspecified psychosis not due to a substance or known physiological condition - Discharge Information Referrals: Amanda Herman [employer] [Primary Care Provider] - Additional Instructions:
[2017-03-12] MEDS ORDERED: ClonazePAM 1 MG Tab PO ONE (12:54)
[2017-03-12] MEDS ORDERED: LORazepam 1 MG Tab PO ONE (12:54)
--- NOTE | 2017-03-12 13:51 | CR ---
Left knee: AP and lateral views of the left knee were obtained as well as bilateral sunrise patellar views. Comparison: Previous left knee exam of 12/21/10. Severe medial joint space narrowing is seen. This has progressed from previous exam. Lateral joint space is preserved. Osteophytes are noted off the medial and lateral tibia. Detached bony density is seen off the superior patella which is felt compatible with an old detached spur. Degenerative spurring is noted within both patellofemoral joints. Mild joint space narrowing is also noted within both patellofemoral joints. No acute fracture or other abnormality is seen. Impression: 1. Degenerative change as noted above. Findings have progressed from previous study of 12/21/10. 2. No acute abnormality is appreciated. Diagnostic code #2
--- NOTE | 2017-03-12 13:51 | CR ---
Right knee: AP, lateral and sunrise patellar views were obtained. [place] view was dictated on left knee exam. Comparison: No prior right knee exam. Moderate narrowing of the medial joint compartment is seen. Degenerative spurring is noted within the patella. Osteophyte is noted off the medial tibial margin. No joint effusion is seen. No acute fracture or dislocation is seen. Impression: 1. Degenerative change. No acute abnormality is seen. Diagnostic code #2
--- NOTE | 2017-03-12 14:54 | CT ---
Head CT Technique: Multiple axial sections through the brain were obtained. Intravenous contrast was not utilized. Comparison: Prior head CT study of 10/21/16. Findings: Ventricles along with basal cisterns and sulci over the convexities are within normal limits for the patient's age. No abnormal parenchymal densities are seen. No evidence of intracranial hemorrhage. No midline shift or mass effect is appreciated. Bone window settings were reviewed which shows no acute calvarial abnormality. Incidental note of hyperostosis internal frontalis. Visualized sinuses are clear. Impression: 1. No acute intracranial abnormality is identified. No significant change is seen from prior head CT study. Diagnostic code #2
[2017-03-12] MEDS ORDERED: Haloperidol Lactate 5 MG/ML SDV IM ONE (15:12)
[2017-03-12] MEDS ORDERED: LORazepam 2 MG/ML MDV IM ONE (16:09)
== END 2017-03-12 18:00 ==
LOC: JD.ED 10:32
DX: F41.9 Anxiety disorder, unspecified (principal); F29 Unspecified psychosis not due to a substance or known physiological condition; I10 Essential (primary) hypertension; E78.00 Pure hypercholesterolemia, unspecified; F32.9 Major depressive disorder, single episode, unspecified; Z87.891 Personal history of nicotine dependence; Z79.899 Other long term (current) drug therapy; Z88.1 Allergy status to other antibiotic agents; Z88.8 Allergy status to other drugs, medicaments and biological substances
CPT/HCPCS: 36415; 70450; 73562; 80053; 80306; 81001; 84443; 85025; 86140; 96372; 99285; A9270; G0480; J1630; J2060; 99284

== ENCOUNTER 2017-04-16 15:56 | Emergency (ER) | payer BC ==
[2017-04-16 16:05] VITALS: BP 153/82
[2017-04-16] MEDS ORDERED: Sodium Chloride 0.9% 10 ML Syringe FLUSH PRN (16:07)
[2017-04-16] MEDS ORDERED: LORazepam 2 MG/ML MDV IVPUSH ONE ×2 (16:08→16:10)
[2017-04-16] MEDS ORDERED: Aspirin 81 MG Tab.Chew PO ONE (16:08)
--- NOTE | 2017-04-16 16:43 | EDM.PDOC ---
ED HPI GENERAL MEDICAL PROBLEM - General Chief Complaint: Chest Pain Stated Complaint: CHEST PAIN Time Seen by Provider: 04/16/17 16:09 Source of Information: Reports: Patient History Limitations: Reports: No Limitations - History of Present Illness INITIAL COMMENTS - FREE TEXT/NARRATIVE: 62-year-old female presents for evaluation and treatment of chest pain. Reports that the chest pain is located in her left side of her chest and radiates into her left arm. Started about 2 hours prior to arrival in the ER. Reports associated symptoms of diaphoresis, nausea and one episode of vomiting. Patient is very anxious. Denies any coughs, colds or recent upper respiratory symptoms. Reports she has been feeling lightheaded and dizzy and passed out recently. Patient has been seen in the ER on several occasions for anxiety. Currently sees Dr. Ramachandran at [facility]. Scheduled to see psychiatry at [facility] in April. Left Chest Pain Score (Numeric/FACES): 7 - Related Data Allergies Allergy/AdvReac Type Severity Reaction Status Date / Time celecoxib [From Celebrex] Allergy Other Verified 04/16/17 16:01 clarithromycin [From Biaxin] Allergy Other Verified 04/16/17 16:01 lisinopril Allergy Cough Verified 04/16/17 16:01 HCTZ Allergy Other Uncoded 04/16/17 16:01 Home Meds: Home Meds Cholecalciferol (Vitamin D3) [Vitamin D3] 2,000 unit PO DAILY 12/11/16 [History] LORazepam [Ativan] 1 mg PO QID 12/11/16 [History] Losartan [Cozaar] 100 mg PO DAILY 12/11/16 [History] [place]-3/DHA/Epa/Fish Oil [Fish Oil 1,000 mg Softgel] 2 tab PO DAILY 12/11/16 [ History] PARoxetine HCl [Paroxetine HCl] 30 mg PO QPM 12/11/16 [History] amLODIPine [Norvasc] 10 mg PO DAILY 12/11/16 [History] Lurasidone HCl [Latuda] 40 mg PO DAILY 02/07/17 [History] Mirtazapine [Remeron] 30 mg PO BEDTIME 02/07/17 [History] Atenolol [Tenormin] 50 mg PO DAILY 02/10/17 [History] Pravastatin [Pravachol] 20 mg PO DAILY 02/10/17 [History] B Complex With Vitamin C [Support-500] 1 tab PO DAILY 03/10/17 [History] ClonazePAM [KlonoPIN] 1 mg PO QID 03/10/17 [History] Multivitamin. 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: Musculoskeletal History: Reports: Osteoarthritis Psychiatric History: Reports: Anxiety, Depression, Emotional Problems, Suicidal Ideation Other Psychiatric History: outpatient treatement at [facility] Hematologic History: Reports: Anemia - Past Surgical History Female Surgical History: Reports: Breast Biopsy, Section Social & Family History - Family History Family Medical History: Noncontributory - Tobacco Use Smoking Status *Q: Never Smoker Used Tobacco, but Quit: Yes Second Hand Smoke Exposure: No - Caffeine Use Caffeine Use: Reports: Coffee - Recreational Drug Use Recreational Drug Use: No - Living Situation & Occupation Living situation: Reports: , with Spouse Occupation: Retired ED ROS GENERAL - Review of Systems Review Of Systems: See Below Constitutional: Reports: Diaphoresis Respiratory: Reports: Shortness of Breath Cardiovascular: Reports: Chest Pain, Lightheadedness, Syncope GI/Abdominal: Reports: Nausea, Vomiting Neurological: Reports: Dizziness, Syncope ED EXAM, GENERAL - Physical Exam Exam: See Below Exam Limited By: No Limitations General Appearance: Alert, WD/WN, Anxious, Moderate Distress Eye Exam: Bilateral Eye: Normal Inspection, PERRL Ears: Normal External Exam Nose: Normal Inspection Throat/Mouth: Normal Inspection, Normal Lips, Normal Voice, No Airway Compromise Head: Atraumatic, Normocephalic Neck: Normal Inspection, Supple, Non-Tender, Full Range of Motion Respiratory/Chest: No Respiratory Distress, Lungs Clear, Normal Breath Sounds Cardiovascular: Normal Peripheral Pulses, Regular Rate, Rhythm, No Murmur Peripheral Pulses: 2+: Radial (L), Radial (R), Posterior Tibial (L), Posterior Tibial (R) GI/Abdominal: Normal Bowel Sounds, Soft, Non-Tender Neurological: Alert, Oriented Psychiatric: Anxious Skin Exam: Warm, Dry, Normal Color EKG INTERPRETATION EKG Date: 04/16/17 EKG Interpretation Comments: initial EKG at 16:07 Showed NSR. Change from 02-11-16 EKG widening of the QRS complex. Artifact. repeat EKG at 18:15 (after 2mg IV Ativan) shows a NSR at 75 bpm. No acute changes. No change from 02-10-17 EKG. Course - Vital Signs Last Recorded V/S: Last Vital Signs Temp 36.3 C 04/16/17 16:01 Pulse 95 04/16/17 16:01 Resp 22 H 04/16/17 16:01 BP 153/82 H 04/16/17 16:01 Pulse Ox 96 04/16/17 16:01 - Orders/Labs/Meds Orders: Active Orders 24 hr Category Date Time Status Cardiac Monitoring [RC] . DIRECTED Care 04/16/17 16:23 Active EKG 12 Lead [EKG Documentation Completion] [RC] STAT Care 04/16/17 16:07 Active EKG 12 Lead [EKG Documentation Completion] [RC] STAT Care 04/16/17 18:01 Active EKG Documentation Completion [RC] ASDIRECTED Care 04/16/17 16:07 Active Peripheral IV Care [RC] . DIRECTED Care 04/16/17 16:07 Active Chest 1V Frontal [CR] Stat Exams 04/16/17 16:07 Taken Peripheral IV Insertion Adult [OM.PC] Routine Oth 04/16/17 16:07 Ordered EKG 12 Lead [EK] Stat Ther 04/16/17 16:07 Ordered Labs: Laboratory Tests 04/16/17 04/16/17 04/16/17 Range/Units 16:25 16:25 16:25 WBC 9.44 (3.98-10.04) K/mm3 RBC 4.83 (3.98-5.22) M/mm3 Hgb 15.4 (11.2-15.7) gm/L Hct 45.3 H (34.1-44.9) % MCV 93.8 (79.4-94.8) fl MCH 31.9 (25.6-32.2) pg MCHC 34.0 (32.2-35.5) g/dl RDW Std Deviation 42.8 (36.4-46.3) fL Plt Count 350 (182-369) K/mm3 MPV 10.2 (9.4-12.3) fl Neut % (Auto) 74.5 H (34.0-71.1) % Lymph % (Auto) 17.7 L (19.3-51.7) % [place] % (Auto) 5.6 (4.7-12.5) % Eos % (Auto) 1.6 (0.7-5.8) Baso % (Auto) 0.4 (0.1-1.2) % Neut # (Auto) 7.03 H (1.56-6.13) K/mm3 Lymph # (Auto) 1.67 (1.18-3.74) K/mm3 [place] # (Auto) 0.53 H (0.24-0.36) K/mm3 Eos # (Auto) 0.15 (0.04-0.36) K/mm3 Baso # (Auto) 0.04 (0.01-0.08) K/mm3 PT 9.7 (8.0-13.0) SECONDS INR 0.90 APTT 25 (22-36) SECONDS Sodium 136 (136-145) mEq/L Potassium 4.3 (3.5-5.1) mEq/L Chloride 102 (98-107) mEq/L Carbon Dioxide 23 (21-32) mEq/L Anion Gap 15.3 H (5-15) BUN 10 (7-18) mg/dL Creatinine 0.6 (0.55-1.02) mg/dL Est Cr Clr Drug Dosing 86.10 mL/min Estimated GFR (MDRD) > 60 (>60) mL/min BUN/Creatinine Ratio 16.7 (14-18) Glucose 116 H (74-106) mg/dL Calcium 9.1 (8.5-10.1) mg/dL Total Bilirubin 0.4 (0.2-1.0) mg/dL AST 30 (15-37) U/L ALT 36 (14-59) U/L Alkaline Phosphatase 78 (46-116) U/L Troponin I < 0.017 (0.00-0.056) ng/mL Total Protein 7.8 (6.4-8.2) g/dl Albumin 4.0 (3.4-5.0) g/dl Globulin 3.8 gm/dL Albumin/Globulin Ratio 1.1 (1-2) Lipase 166 (73-393) U/L 04/16/17 Range/Units 18:30 WBC (3.98-10.04) K/mm3 RBC (3.98-5.22) M/mm3 Hgb (11.2-15.7) gm/L Hct (34.1-44.9) % MCV (79.4-94.8) fl MCH (25.6-32.2) pg MCHC (32.2-35.5) g/dl RDW Std Deviation (36.4-46.3) fL Plt Count (182-369) K/mm3 MPV (9.4-12.3) fl Neut % (Auto) (34.0-71.1) % Lymph % (Auto) (19.3-51.7) % [place] % (Auto) (4.7-12.5) % Eos % (Auto) (0.7-5.8) Baso % (Auto) (0.1-1.2) % Neut # (Auto) (1.56-6.13) K/mm3 Lymph # (Auto) (1.18-3.74) K/mm3 [place] # (Auto) (0.24-0.36) K/mm3 Eos # (Auto) (0.04-0.36) K/mm3 Baso # (Auto) (0.01-0.08) K/mm3 PT (8.0-13.0) SECONDS INR APTT (22-36) SECONDS Sodium (136-145) mEq/L Potassium (3.5-5.1) mEq/L Chloride (98-107) mEq/L Carbon Dioxide (21-32) mEq/L Anion Gap (5-15) BUN (7-18) mg/dL Creatinine (0.55-1.02) mg/dL Est Cr Clr Drug Dosing mL/min Estimated GFR (MDRD) (>60) mL/min BUN/Creatinine Ratio (14-18) Glucose (74-106) mg/dL Calcium (8.5-10.1) mg/dL Total Bilirubin (0.2-1.0) mg/dL AST (15-37) U/L ALT (14-59) U/L Alkaline Phosphatase (46-116) U/L Troponin I < 0.017 (0.00-0.056) ng/mL Total Protein (6.4-8.2) g/dl Albumin (3.4-5.0) g/dl Globulin gm/dL Albumin/Globulin Ratio (1-2) Lipase (73-393) U/L Meds: Medications Discontinued Medications Generic Name Dose Route Start Last Admin Trade Name Freq PRN Reason Stop Dose Admin Aspirin 324 mg 04/16/17 16:08 04/16/17 16:37 Aspirin PO 04/16/17 16:09 324 mg ONETIME ONE Administration Lorazepam 1 mg 04/16/17 16:08 Ativan IVPUSH 04/16/17 16:09 ONETIME ONE Lorazepam 2 mg 04/16/17 16:10 04/16/17 16:39 Ativan IVPUSH 04/16/17 16:11 2 mg ONETIME ONE Administration Sodium Chloride 10 ml 04/16/17 16:07 04/16/17 16:36 Saline Flush FLUSH 10 ml ASDIRECTED PRN Administration Keep Vein Open - Radiology Interpretation Free Text/Narrative:: chest xray shows no acute intrathrocic process. No change from previous chest xray. - Re-Assessments/Exams Free Text/Narrative Re-Assessment/Exam: 04/16/17 18:05 I reviewed the labs, EKG and chest x-ray with the patient. She is greatly improved after receiving the 2 mg IV ativan. She is denying chest pain and is resting comfortably. We will repeat her troponin. I asked nursing staff to repeat her EKG now that she is more calm and she is not having so much movement that caused artifact on her EKG. 04/16/17 19:08 Repeat troponin returned undetectable less than 0.017. Will discharge him at this time. Discharge instructions as documented. Departure - Departure Time of Disposition: 19:09 Disposition: Home, Self-Care 01 Condition: Good Clinical Impression: Anxiety, Non-cardiac chest pain Instructions: Panic Attacks, [id number], Nonspecific Chest Pain Referrals: Virgil,Amanda M, SALES APPLICATIONS ENGINEER [Primary Care Provider] - Forms: ED Department Discharge Additional Instructions: Continue with your current plan of care. Please return to the ER if your Symptoms change or worsen. - My Orders Last 24 Hours: My Active Orders 04/16/17 16:07 EKG 12 Lead [EKG Documentation Completion] [RC] STAT EKG Documentation Completion [RC] ASDIRECTED Peripheral IV Care [RC] . DIRECTED Chest 1V Frontal [CR] Stat Peripheral IV Insertion Adult [OM.PC] Routine EKG 12 Lead [EK] Stat 04/16/17 16:23 Cardiac Monitoring [RC] . DIRECTED 04/16/17 18:01 EKG 12 Lead [EKG Documentation Completion] [RC] STAT - Assessment/Plan Last 24 Hours: My Active Orders 04/16/17 16:07 EKG 12 Lead [EKG Documentation Completion] [RC] STAT EKG Documentation Completion [RC] ASDIRECTED Peripheral IV Care [RC] . DIRECTED Chest 1V Frontal [CR] Stat Peripheral IV Insertion Adult [OM.PC] Routine EKG 12 Lead [EK] Stat 04/16/17 16:23 Cardiac Monitoring [RC] . DIRECTED 04/16/17 18:01 EKG 12 Lead [EKG Documentation Completion] [RC] STAT
--- NOTE | 2017-04-17 08:15 | CR ---
Chest: Portable view of the chest was obtained. Comparison: Previous chest x-ray of 06/21/16. Heart size and mediastinum are within normal limits. Hiatal hernia is possibly present. Lungs are clear with no acute parenchymal densities. Bony structures are grossly intact. Impression: 1. Possible hiatal hernia. 2. Nothing acute is appreciated on portable chest x-ray. Diagnostic code #2
== END 2017-04-16 19:19 | disposition home or self-care (01) ==
LOC: JD.ED 15:56
DX: F41.9 Anxiety disorder, unspecified (principal); R07.89 Other chest pain; I10 Essential (primary) hypertension; E78.00 Pure hypercholesterolemia, unspecified; F32.9 Major depressive disorder, single episode, unspecified; Z87.891 Personal history of nicotine dependence; Z79.899 Other long term (current) drug therapy; Z88.1 Allergy status to other antibiotic agents; Z88.8 Allergy status to other drugs, medicaments and biological substances
CPT/HCPCS: 36415; 71010; 80053; 83690; 84484; 85025; 85610; 85730; 93005; 99285; A9270; J2060; J7050; 96374; 99284-25

== ENCOUNTER 2017-05-01 10:55 | Emergency (ER) | payer BC ==
[2017-05-01] MEDS ORDERED: Sodium Chloride 0.9% 10 ML Syringe FLUSH PRN (11:22)
[2017-05-01] MEDS ORDERED: LORazepam 2 MG/ML SDV IVPUSH ONE (11:22)
[2017-05-01] MEDS ORDERED: Ketorolac 30 MG/ML SDV IVPUSH ONE (11:26)
--- NOTE | 2017-05-01 11:33 | EDM.PDOC ---
ED HPI GENERAL MEDICAL PROBLEM - General Chief Complaint: Lower Extremity Injury/Pain Stated Complaint: [facility] Time Seen by Provider: 05/01/17 11:09 Source of Information: Reports: Patient History Limitations: Reports: No Limitations - History of Present Illness INITIAL COMMENTS - FREE TEXT/NARRATIVE: 62-year-old female, who is known to the ER, presents for evaluation and treatment of injuries sustained a fall. Reportedly the patient went to [employer] drive-through. She started to have a panic attack. She has a long history of psychiatric problems. She currently sees Dr. Ramachandran at [facility]. One of the workers was concerned about her and followed her home. They then witnessed her falling in the garage. They called the ambulance. Reportedly the patient tripped over a rug in the garage. She is complaining of pain to the left knee and states that she hit her head. Reports she hit her head on a toy box in the garage. She is complaining of pain to the top of her head. She reports associated symptoms of headache, nausea and blurry vision. She states she felt that she was out for a few minutes. No vomiting. She is also complaining of pain to the left knee. Reports that she has steroid injection to the bilateral knee several days ago by Dr. Sanabria. Left Knee Pain Score (Numeric/FACES): 9 Head Pain Score (Numeric/FACES): 6 - Related Data Allergies Allergy/AdvReac Type Severity Reaction Status Date / Time celecoxib [From Celebrex] Allergy Other Verified 05/01/17 10:59 clarithromycin [From Biaxin] Allergy Other Verified 05/01/17 10:59 lisinopril Allergy Cough Verified 05/01/17 10:59 HCTZ Allergy Other Uncoded 05/01/17 10:59 Home Meds: Home Meds Cholecalciferol (Vitamin D3) [Vitamin D3] 2,000 unit PO DAILY 12/11/16 [History] LORazepam [Ativan] 1 mg PO QID 12/11/16 [History] Losartan [Cozaar] 100 mg PO DAILY 12/11/16 [History] [place]-3/DHA/Epa/Fish Oil [Fish Oil 1,000 mg Softgel] 2 tab PO DAILY 12/11/16 [ History] PARoxetine HCl [Paroxetine HCl] 30 mg PO QPM 12/11/16 [History] amLODIPine [Norvasc] 10 mg PO DAILY 12/11/16 [History] Lurasidone HCl [Latuda] 40 mg PO DAILY 02/07/17 [History] Mirtazapine [Remeron] 30 mg PO BEDTIME 02/07/17 [History] Atenolol [Tenormin] 50 mg PO DAILY 02/10/17 [History] Pravastatin [Pravachol] 20 mg PO DAILY 02/10/17 [History] B Complex With Vitamin C [Support-500] 1 tab PO DAILY 03/10/17 [History] ClonazePAM [KlonoPIN] 1 mg PO QID 03/10/17 [History] Multivitamin. 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: Musculoskeletal History: Reports: Osteoarthritis Psychiatric History: Reports: Anxiety, Depression, Emotional Problems, Suicidal Ideation Other Psychiatric History: outpatient treatement at [facility] Hematologic History: Reports: Anemia - Past Surgical History Female Surgical History: Reports: Breast Biopsy, Section Social & Family History - Family History Family Medical History: Noncontributory - Tobacco Use Smoking Status *Q: Never Smoker Used Tobacco, but Quit: Yes Second Hand Smoke Exposure: No - Caffeine Use Caffeine Use: Reports: Coffee - Recreational Drug Use Recreational Drug Use: No - Living Situation & Occupation Living situation: Reports: , with Spouse Occupation: Retired Review of Systems - Review of Systems Review Of Systems: See Below Eyes: Reports: Vision Change (reports blurry vision) Nose: Denies: Epistaxis Mouth/Throat: Denies: Loose Teeth Respiratory: Denies: Shortness of Breath Cardiovascular: Reports: Chest Pain Musculoskeletal: Reports: Neck Pain, Joint Pain (left knee) Neurological: Reports: Headache, Syncope ED EXAM, GENERAL - Physical Exam Exam: See Below Exam Limited By: No Limitations General Appearance: Alert, WD/WN, No Apparent Distress Eye Exam: Bilateral Eye: Normal Inspection Ears: Normal External Exam Nose: Normal Inspection Throat/Mouth: Normal Inspection, Normal Lips, Normal Voice, No Airway Compromise Head: Atraumatic, Normocephalic Neck: Normal Inspection, Supple, Non-Tender, Full Range of Motion Respiratory/Chest: No Respiratory Distress, Lungs Clear, Normal Breath Sounds, Chest Non-Tender Cardiovascular: Normal Peripheral Pulses, Regular Rate, Rhythm, No Murmur GI/Abdominal: Normal Bowel Sounds, Soft Neurological: Alert, Oriented, Normal Cognition Psychiatric: Normal Mood, Anxious Skin Exam: Warm, Dry, Normal Color Course - Vital Signs Last Recorded V/S: Last Vital Signs Temp 37.0 C 05/01/17 10:59 Pulse 78 05/01/17 13:45 Resp 20 05/01/17 13:45 BP 115/70 05/01/17 13:45 Pulse Ox 96 05/01/17 13:45 - Orders/Labs/Meds Orders: Active Orders 24 hr Category Date Time Status Peripheral IV Care [RC] . DIRECTED Care 05/01/17 11:22 Active Sodium Chloride 0.9% [Saline Flush] Med 05/01/17 11:22 Active 10 ml FLUSH ASDIRECTED PRN Peripheral IV Insertion Adult [OM.PC] Routine Oth 05/01/17 11:21 Ordered Medication Orders Sodium Chloride (Saline Flush) 10 ml FLUSH ASDIRECTED PRN PRN Reason: Keep Vein Open Last Admin: 05/01/17 11:48 Dose: 10 ml Labs: Laboratory Tests 05/01/17 05/01/17 Range/Units 11:45 11:45 WBC 11.04 H (3.98-10.04) K/mm3 RBC 4.66 (3.98-5.22) M/mm3 Hgb 14.4 (11.2-15.7) gm/L Hct 43.3 (34.1-44.9) % MCV 92.9 (79.4-94.8) fl MCH 30.9 (25.6-32.2) pg MCHC 33.3 (32.2-35.5) g/dl RDW Std Deviation 43.4 (36.4-46.3) fL Plt Count 366 (182-369) K/mm3 MPV 10.4 (9.4-12.3) fl Neut % (Auto) 73.8 H (34.0-71.1) % Lymph % (Auto) 17.2 L (19.3-51.7) % [place] % (Auto) 8.3 (4.7-12.5) % Eos % (Auto) 0.1 L (0.7-5.8) Baso % (Auto) 0.1 (0.1-1.2) % Neut # (Auto) 8.15 H (1.56-6.13) K/mm3 Lymph # (Auto) 1.90 (1.18-3.74) K/mm3 [place] # (Auto) 0.92 H (0.24-0.36) K/mm3 Eos # (Auto) 0.01 L (0.04-0.36) K/mm3 Baso # (Auto) 0.01 (0.01-0.08) K/mm3 Sodium 132 L (136-145) mEq/L Potassium 3.9 (3.5-5.1) mEq/L Chloride 99 (98-107) mEq/L Carbon Dioxide 23 (21-32) mEq/L Anion Gap 13.9 (5-15) BUN 15 (7-18) mg/dL Creatinine 0.9 (0.55-1.02) mg/dL Est Cr Clr Drug Dosing 57.40 mL/min Estimated GFR (MDRD) > 60 (>60) mL/min BUN/Creatinine Ratio 16.7 (14-18) Glucose 169 H (74-106) mg/dL Calcium 9.1 (8.5-10.1) mg/dL Meds: Medications Generic Name Dose Route Start Last Admin Trade Name Freq PRN Reason Stop Dose Admin Sodium Chloride 10 ml 05/01/17 11:22 05/01/17 11:48 Saline Flush FLUSH 10 ml ASDIRECTED PRN Administration Keep Vein Open Discontinued Medications Generic Name Dose Route Start Last Admin Trade Name Freq PRN Reason Stop Dose Admin Ketorolac Tromethamine 30 mg 05/01/17 11:26 05/01/17 11:49 Toradol IVPUSH 05/01/17 11:27 30 mg ONETIME ONE Administration Lorazepam 2 mg 05/01/17 11:22 05/01/17 11:55 Ativan IVPUSH 05/01/17 11:23 2 mg ONETIME ONE Administration - Radiology Interpretation Free Text/Narrative:: Head CT Technique: Multiple axial sections through the brain were obtained. Intravenous contrast was not utilized. Comparison: Prior head CT study of 03/12/17. Findings: Ventricles along with basal cisterns and sulci over the convexities are within normal limits for the patient's age. No abnormal parenchymal densities are seen. No evidence of intracranial hemorrhage. No midline shift or mass effect is seen. Bone window settings were reviewed which shows no acute calvarial abnormality. Incidental note of hyperostosis frontalis interna frontalis. Visualized sinuses are clear. Impression: 1. Nothing acute is appreciated on noncontrast head CT exam. No significant change is seen from prior head CT study. CT cervical spine Technique: Multiple axial sections were obtained from above C1 inferior to the top of T2. Reconstructed sagittal and coronal images were reviewed. Findings: Posterior skull base is intact. Mild degenerative change is noted between the dens and anterior arch of C1. Moderate disc space narrowing is noted at C4-5. Severe disc space narrowing is noted at C5-6 and C6-7. Diffuse anterior osteophytes are seen as well as mild posterior osteophytes at C5-6 and C6-7. Vertebral body heights are maintained. Neural foramina are fairly well patent. No bony central canal stenosis is seen. No fracture is identified. Diffuse degenerative apophyseal change is seen. Slight spondylolisthesis is noted at C3-4 due to degenerative apophyseal change. Degenerative spurring is is noted within the uncovertebral joints most prominent on the left side at C5- 6. Impression: 1. Degenerative change as noted above. 2. No acute abnormality is identified on CT study of the cervical spine. Left knee: Four views of the left knee were obtained. Comparison: Previous left knee exam of 03/12/17. Severe medial joint space narrowing is seen. Osteophytes are noted off the medial and lateral joint compartments. Fairly severe joint space narrowing is noted within the lateral patellofemoral joint. Osteophytes are seen off the patella. Detached bony density is seen off the superior patella which appears old. Osteopenia is seen. Impression: 1. Degenerative change as noted above. Degenerative change has progressed within the lateral patellofemoral joint from prior exam. Other degenerative change is stable. 2. Nothing acute is appreciated. - Re-Assessments/Exams Free Text/Narrative Re-Assessment/Exam: 05/01/17 13:20 Anxiety has improved after the 2 mg IV Ativan. Pain improved with the IV Toradol. I reviewed the labs and imaging with the patient. I will give her a few pain pills for her knee pain. Discharge instructions as documented. Departure - Departure Time of Disposition: 13:21 Disposition: Home, Self-Care 01 Condition: Fair Clinical Impression: Fall, Osteoarthritis of left knee, Left knee pain - Discharge Information Prescriptions: Hydrocodone/Acetaminophen [Hydrocodon-Acetaminophen 5-325] 1 each PO Q6HR PRN # 10 tablet PRN Reason: Pain Instructions: Knee Pain, Fall Prevention in the Home, [id number] Referrals: Amanda Herman, PHARMACY TECHNICIAN [Primary Care Provider] - Forms: ED Department Discharge Additional Instructions: Ice or heat to the knee for additional pain relief. Recommend Tylenol or Motrin as needed for pain. For pain not relieved by Tylenol or Motrin he may take [place] one tablet every 6 hours. [place] can be habit -forming, I recommend you take as little as needed to control your pain. Do not drive or operate machinery within 12 hours of taking [place]. Do not take more than 4 g of Tylenol from all sources in 1 day. Follow-up with your orthopedic doctor if you continue to have knee pain within a week. Follow up with your primary care provider as needed. Please return to the ER if your symptoms change or worsen. - My Orders Last 24 Hours: My Active Orders 05/01/17 11:21 Peripheral IV Insertion Adult [OM.PC] Routine 05/01/17 11:22 Peripheral IV Care [RC] . DIRECTED Sodium Chloride 0.9% [Saline Flush] 10 ml FLUSH ASDIRECTED PRN - Assessment/Plan Last 24 Hours: My Active Orders 05/01/17 11:21 Peripheral IV Insertion Adult [OM.PC] Routine 05/01/17 11:22 Peripheral IV Care [RC] . DIRECTED Sodium Chloride 0.9% [Saline Flush] 10 ml FLUSH ASDIRECTED PRN
--- NOTE | 2017-05-01 12:52 | CT ---
Head CT Technique: Multiple axial sections through the brain were obtained. Intravenous contrast was not utilized. Comparison: Prior head CT study of 03/12/17. Findings: Ventricles along with basal cisterns and sulci over the convexities are within normal limits for the patient's age. No abnormal parenchymal densities are seen. No evidence of intracranial hemorrhage. No midline shift or mass effect is seen. Bone window settings were reviewed which shows no acute calvarial abnormality. Incidental note of hyperostosis frontalis interna frontalis. Visualized sinuses are clear. Impression: 1. Nothing acute is appreciated on noncontrast head CT exam. No significant change is seen from prior head CT study. Diagnostic code #2
--- NOTE | 2017-05-01 12:52 | CT ---
CT cervical spine Technique: Multiple axial sections were obtained from above C1 inferior to the top of T2. Reconstructed sagittal and coronal images were reviewed. Findings: Posterior skull base is intact. Mild degenerative change is noted between the dens and anterior arch of C1. Moderate disc space narrowing is noted at C4-5. Severe disc space narrowing is noted at C5-6 and C6-7. Diffuse anterior osteophytes are seen as well as mild posterior osteophytes at C5-6 and C6-7. Vertebral body heights are maintained. Neural foramina are fairly well patent. No bony central canal stenosis is seen. No fracture is identified. Diffuse degenerative apophyseal change is seen. Slight spondylolisthesis is noted at C3-4 due to degenerative apophyseal change. Degenerative spurring is is noted within the uncovertebral joints most prominent on the left side at C5-6. Impression: 1. Degenerative change as noted above. 2. No acute abnormality is identified on CT study of the cervical spine. Diagnostic code #2
--- NOTE | 2017-05-01 12:52 | CR ---
Left knee: Four views of the left knee were obtained. Comparison: Previous left knee exam of 03/12/17. Severe medial joint space narrowing is seen. Osteophytes are noted off the medial and lateral joint compartments. Fairly severe joint space narrowing is noted within the lateral patellofemoral joint. Osteophytes are seen off the patella. Detached bony density is seen off the superior patella which appears old. Osteopenia is seen. Impression: 1. Degenerative change as noted above. Degenerative change has progressed within the lateral patellofemoral joint from prior exam. Other degenerative change is stable. 2. Nothing acute is appreciated. Diagnostic code #2
[2017-05-01 16:09] VITALS: BP 115/70
== END 2017-05-01 14:12 | disposition home or self-care (01) ==
LOC: JD.ED 10:55
DX: M17.12 Unilateral primary osteoarthritis, left knee (principal); I10 Essential (primary) hypertension; E78.00 Pure hypercholesterolemia, unspecified; F32.9 Major depressive disorder, single episode, unspecified; Z87.891 Personal history of nicotine dependence; Z79.899 Other long term (current) drug therapy; Z88.1 Allergy status to other antibiotic agents; Z88.8 Allergy status to other drugs, medicaments and biological substances; W18.09XA Striking against other object with subsequent fall, initial encounter; Y92.59 Other trade areas as the place of occurrence of the external cause
CPT/HCPCS: 36415; 70450; 72125; 73564; 80048; 85025; 96374; 96375; 99285; J1885; J2060; J7050; 99283

== ENCOUNTER 2017-07-13 11:11 | Emergency (ER) | payer BC ==
[2017-07-13 11:40] VITALS: BP 141/73
[2017-07-13] MEDS ORDERED: hydrOXYzine HCl 25 MG/ML SDV IM ONE (11:45)
--- NOTE | 2017-07-13 11:52 | EDM.PDOCBH ---
ED HPI GENERAL MEDICAL PROBLEM - General Chief Complaint: Gastrointestinal Problem Stated Complaint: ANXIETY Time Seen by Provider: 07/13/17 11:34 Source of Information: Reports: Patient, Family () History Limitations: Reports: Other (Anxious) - History of Present Illness INITIAL COMMENTS - FREE TEXT/NARRATIVE: Patient is a 8-year-old female with a long history of anxiety and depression who has been seen in the ED multiple times for these conditions. She is brought in to the ED by her with concerns of increased anxiety. She also has some mild nausea and vomiting with diarrhea. This is a long standing issue unchanged with recent. Most likely cause is elated to anxiety. Of note patient underwent 7 ECT treatments at the [facility] between June 10 through . She was doing quite well when returning home. The providers at the [facility] are attempting to keep the patient off of any kind of benzodiazepine. As of June 25 patient was having a difficult time sleeping. June 29 they added trazodone. July 02 they added Seroquel 50 mg 3 times a day and also 300 mg at night for sleep. Patient has been sleeping better. As of today they stopped the Seroquel 3 times a day and added hydroxyzine 25 mg twice a day. With plans of increasing to 50 mg twice a day if needed. First dose was at 11:00 this morning and the patient has somewhat calmed down with admission to the ED. Patient requested to come to the ED due to increased anxiety. With evaluation patient is calm and then all of a sudden has episodes of yelling help me help me. She is able to calm down with her at bedside. states symptoms are worse in the morning upon awakening. Again the diarrhea,nausea, vomiting are chronic secondary to anxiety. There's been no recent antibiotic use. No fever. No chest pain. No shortness of breath. No abdominal pain. No dysuria. She's been eating and drinking well. No other complaints. 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 (see below) Other Treatments ABRASIVE GRADER HELPER: hydrazasine 25mg at 1100 - Related Data Allergies Allergy/AdvReac Type Severity Reaction Status Date / Time celecoxib [From Celebrex] Allergy Other Verified 07/13/17 11:22 clarithromycin [From Biaxin] Allergy Other Verified 07/13/17 11:22 lisinopril Allergy Cough Verified 07/13/17 11:22 HCTZ Allergy Other Uncoded 05/01/17 10:59 Home Meds: Home Meds Cholecalciferol (Vitamin D3) [Vitamin D3] 5,000 unit PO DAILY 12/11/16 [History] Losartan [Cozaar] 100 mg PO DAILY 12/11/16 [History] [place]-3/DHA/Epa/Fish Oil [Fish Oil 1,000 mg Softgel] 2 tab PO DAILY 12/11/16 [ History] amLODIPine [Norvasc] 10 mg PO DAILY 12/11/16 [History] Atenolol [Tenormin] 50 mg PO DAILY 02/10/17 [History] Multivitamin. 1 tab PO DAILY 03/10/17 [History] hydrOXYzine Pamoate [Hydroxyzine Pamoate] 25 mg PO BID 03/10/17 [History] Escitalopram [Lexapro] 10 mg PO DAILY 07/13/17 [History] Gluc 2KCl/Chondr/Suyapa Hy/Hy Ac [Glucosamine & Chondroitin Cap] 1 each PO DAILY 07/13/17 [History] Melatonin 6 mg PO BEDTIME 07/13/17 [History] QUEtiapine Fumarate [Seroquel] 300 mg PO BEDTIME 07/13/17 [History] QUEtiapine [SEROquel] 50 mg PO TID 07/13/17 [History] Simvastatin [Zocor] 10 mg PO DAILY 07/13/17 [History] busPIRone HCl [Buspirone HCl] 7.5 mg PO TID 07/13/17 [History] traZODone HCl [Trazodone HCl] 50 mg PO BEDTIME 07/13/17 [History] Past Medical History HEENT History: Reports: Impaired Vision Other HEENT History: wears eyeglasses Cardiovascular History: Reports: High Cholesterol, Hypertension Respiratory History: Reports: Pneumonia, Recurrent 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: Musculoskeletal History: Reports: Osteoarthritis Psychiatric History: Reports: Anxiety, Depression, Emotional Problems, Suicidal Ideation Other Psychiatric History: outpatient treatement at [facility] Hematologic History: Reports: Anemia - Past Surgical History Female Surgical History: Reports: Breast Biopsy, Section Social & Family History - Family History Family Medical History: Noncontributory - Tobacco Use Smoking Status *Q: Never Smoker Used Tobacco, but Quit: Yes Second Hand Smoke Exposure: No - Caffeine Use Caffeine Use: Reports: Coffee - Recreational Drug Use Recreational Drug Use: No - Living Situation & Occupation Living situation: Reports: , with Spouse Occupation: Retired ED ROS GENERAL - Review of Systems Review Of Systems: ROS reveals no pertinent complaints other than HPI. ED EXAM, BEHAVIORAL HEALTH - Physical Exam Exam: See Below Exam Limited By: No Limitations General Appearance: Alert, WD/WN, Anxious Eye Exam: Bilateral Eye: PERRL Ears: Hearing Grossly Normal Nose: Normal Inspection Throat/Mouth: Normal Inspection, Normal Oropharynx, Normal Voice, No Airway Compromise Head: Atraumatic, Normocephalic Neck: Normal Inspection, Supple Respiratory/Chest: No Respiratory Distress, Lungs Clear, Normal Breath Sounds, No Accessory Muscle Use, Chest Non-Tender Cardiovascular: Normal Peripheral Pulses, Regular Rate, Rhythm GI/Abdominal: Normal Bowel Sounds, Soft, Non-Tender, No Organomegaly, No Distention Back Exam: Normal Inspection, Full Range of Motion Extremities: Normal Inspection Neurological: Alert, CN II-XII Intact, Normal Cognition, No Motor/Sensory Deficits, Oriented x 3 Psychiatric: Alert, Normal Cognition, Oriented, Other (anxious) Skin Exam: Warm, Dry, Intact, Normal color COURSE, BEHAVIORAL HEALTH COMP - Course Vital Signs: Last Vital Signs Temp 97.4 F 07/13/17 11:36 Pulse 73 07/13/17 11:36 Resp 18 07/13/17 11:36 BP 141/73 H 07/13/17 11:36 Pulse Ox 96 07/13/17 11:36 Orders, Labs, Meds: Medications Discontinued Medications Generic Name Dose Route Start Last Admin Trade Name Freq PRN Reason Stop Dose Admin Hydroxyzine HCl 75 mg 07/13/17 11:45 07/13/17 11:50 Vistaril IM 07/13/17 11:46 75 mg ONETIME ONE Administration Re-Assessment/Re-Exam: Will order 75 mg IM and hydroxyzine. Dose for anxiety is 50-100 mg q6hrs. She has taken 25 mg prior to arrival. The [facility] is requesting no benzodiazepines administered. Patient is requesting Ativan 2 mg IM. agrees with treatment plan. 1225 Reassessment, patient is more calm than when she initially came in to the ED. and patient are ready to be discharged home. Patient wants go to [facility] Departure - Departure Time of Disposition: 12:26 Disposition: Home, Self-Care 01 Condition: Good Clinical Impression: Anxiety - Discharge Information Instructions: Generalized Anxiety Disorder, Adult Referrals: Amanda Herman NP [Primary Care Provider] - Forms: ED Department Discharge Additional Instructions: Follow up with Dr. Araiza Psych Provider for further management of anxiety. Return to the E.D. for any new or worsening symptoms. Continue to take all home medications as prescribed.
== END 2017-07-13 12:51 | disposition home or self-care (01) ==
LOC: JD.ED 11:11
DX: F41.9 Anxiety disorder, unspecified (principal); I10 Essential (primary) hypertension; E78.00 Pure hypercholesterolemia, unspecified; Z88.1 Allergy status to other antibiotic agents; Z88.8 Allergy status to other drugs, medicaments and biological substances; Z79.899 Other long term (current) drug therapy
CPT/HCPCS: 96372; 99283; J3410

== ENCOUNTER 2017-07-21 13:07 | Emergency (ER) | payer BC ==
[2017-07-21 13:25] VITALS: BP 162/114
[2017-07-21] MEDS ORDERED: hydrOXYzine HCl 25 MG/ML SDV IM ONE (13:46)
--- NOTE | 2017-07-21 14:45 | EDM.PDOCBH ---
ED HPI GENERAL MEDICAL PROBLEM - General Chief Complaint: Behavioral/Psych Stated Complaint: ANXIETY Time Seen by Provider: 07/21/17 13:38 Source of Information: Reports: Patient History Limitations: Reports: No Limitations - History of Present Illness INITIAL COMMENTS - FREE TEXT/NARRATIVE: 62-year-old female presents for evaluation and treatment of depression and anxiety. Patient is known to the ER has been seen in your several occasions. Most recently she was seen in our ER on 07-13-17 for similar symptoms. She has a history of depression and anxiety. Upon my assessment she is stating that she "can't go home ". She is upset and is fidgeting. She denies any suicidal or homicidal ideation or plan. Patient's is present at the bedside. States that she was seen at [facility] May 25 to Jun.15. She had several rounds of ECT therapy. Reportedly she did well with the ECT therapy and was sent home. She has since followed up with her psychiatrist, Dr. Ramachandran, no plan to return to [facility] at this time. Her has been in contact with Leyla Moura, nurse practitioner [facility] is awaiting for call back. Resident has brought with her discharge summary. 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 Discharge summary indicates that benzodiazepines should be avoided in her treatment plan. She is currently on buspirone, Lexapro, melatonin and Zyprexa for her psychiatric illnesses. - Related Data Allergies Allergy/AdvReac Type Severity Reaction Status Date / Time celecoxib [From Celebrex] Allergy Other Verified 07/21/17 13:25 clarithromycin [From Biaxin] Allergy Other Verified 07/21/17 13:25 lisinopril Allergy Cough Verified 07/21/17 13:25 HCTZ Allergy Other Uncoded 07/21/17 13:25 Home Meds: Home Meds Cholecalciferol (Vitamin D3) [Vitamin D3] 5,000 unit PO DAILY 12/11/16 [History] Losartan [Cozaar] 100 mg PO DAILY 12/11/16 [History] [place]-3/DHA/Epa/Fish Oil [Fish Oil 1,000 mg Softgel] 2 tab PO DAILY 12/11/16 [ History] amLODIPine [Norvasc] 10 mg PO DAILY 12/11/16 [History] Atenolol [Tenormin] 50 mg PO DAILY 02/10/17 [History] Multivitamin. 1 tab PO DAILY 03/10/17 [History] hydrOXYzine Pamoate [Hydroxyzine Pamoate] 25 mg PO BID 03/10/17 [History] Escitalopram [Lexapro] 10 mg PO DAILY 07/13/17 [History] Gluc 2KCl/Chondr/[place]uyapa Hy/Hy Ac [Glucosamine & Chondroitin Cap] 1 each PO DAILY 07/13/17 [History] Melatonin 6 mg PO BEDTIME 07/13/17 [History] QUEtiapine Fumarate [Seroquel] 300 mg PO BEDTIME 07/13/17 [History] QUEtiapine [SEROquel] 50 mg PO TID 07/13/17 [History] Simvastatin [Zocor] 10 mg PO DAILY 07/13/17 [History] busPIRone HCl [Buspirone HCl] 7.5 mg PO TID 07/13/17 [History] traZODone HCl [Trazodone HCl] 50 mg PO BEDTIME 07/13/17 [History] Past Medical History HEENT History: Reports: Impaired Vision Other HEENT History: wears eyeglasses Cardiovascular History: Reports: High Cholesterol, Hypertension Respiratory History: Reports: Pneumonia, Recurrent 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: Musculoskeletal History: Reports: Osteoarthritis Psychiatric History: Reports: Anxiety, Depression, Emotional Problems, Suicidal Ideation Other Psychiatric History: [facility] Hematologic History: Reports: Anemia - Past Surgical History Female Surgical History: Reports: Breast Biopsy, Section Social & Family History - Family History Family Medical History: Noncontributory - Tobacco Use Smoking Status *Q: Never Smoker Used Tobacco, but Quit: Yes Second Hand Smoke Exposure: No - Caffeine Use Caffeine Use: Reports: Coffee - Recreational Drug Use Recreational Drug Use: No - Living Situation & Occupation Living situation: Reports: , with Spouse Occupation: Retired ED ROS GENERAL - Review of Systems Review Of Systems: See Below Psychiatric: Denies: Homicidal Ideation, Suicidal Ideation ED EXAM, BEHAVIORAL HEALTH - Physical Exam Exam: See Below Exam Limited By: No Limitations General Appearance: Alert, WD/WN, Anxious, Moderate Distress, Obese Respiratory/Chest: No Respiratory Distress Neurological: Alert Psychiatric: Alert, Flat Affect, Restless, Agitated. No: Uncooperative, Homicidal Thoughts, Suicidal Plan, Suicidal Thoughts Skin Exam: Warm, Diaphoretic COURSE, BEHAVIORAL HEALTH COMP - Course Vital Signs: Last Vital Signs Temp 36.9 C 07/21/17 13:18 Pulse 103 H 07/21/17 13:18 Resp 16 07/21/17 13:18 BP 162/114 H 07/21/17 13:18 Pulse Ox 92 L 07/21/17 13:18 Orders, Labs, Meds: Medications Discontinued Medications Generic Name Dose Route Start Last Admin Trade Name Galindo PRN Reason Stop Dose Admin Hydroxyzine HCl 75 mg 07/21/17 13:46 07/21/17 14:00 Vistaril IM 07/21/17 13:47 75 mg ONETIME ONE Administration Re-Assessment/Re-Exam: 16:32 I spoke with Leyla Moura NP at [facility]. Recommendation from [facility] is maintenance ECT. This can be done in [place]. I spoke with Dr. Ramachandran at [facility] who did not feel ECT was a good option for her. I spoke with Dr. Scott, psychiatrist, at [facility] in [place]. He has taken care of Jayashree past remembers her. He states that at that time they did discuss ECT therapy, however, for certain reasons he did not continue with this. He would be more than happy to maintenance therapy with her. She is not suicidal or homicidal does not feel she needs to come to them today. He will have his office contact her within the next few days to schedule maintenance ECT therapy. I discussed this plan with the patient and her . I had them speak with social work to determine if she would be a good option for a skilled nursing or day program it does not sound she is caring for herself at home. We will discharge at this time. Discharge instructions as documented. Departure - Departure Time of Disposition: 16:38 Disposition: Home, Self-Care 01 Condition: Fair Clinical Impression: Depressive disorder, Anxiety - Discharge Information Instructions: Major Depressive Disorder, Adult, [place]jyj-ew-[id number] Referrals: Amanda Herman NP [Primary Care Provider] - Deidre Ramachandran MD [Ordering Only Provider] - Forms: ED Department Discharge Additional Instructions: you should be contacted by Dr. Scott' office tomorrow to schedule further ECT. If not his number is [phone]. Continue with your current plan of care. Follow-up with Dr. Ramachandran within 1-2 weeks for recheck of your symptoms. Please return to the ER for symptoms change or worsen.
== END 2017-07-21 17:37 | disposition home or self-care (01) ==
LOC: JD.ED 13:07
DX: F41.9 Anxiety disorder, unspecified (principal); F32.9 Major depressive disorder, single episode, unspecified; I10 Essential (primary) hypertension; E78.00 Pure hypercholesterolemia, unspecified; Z88.1 Allergy status to other antibiotic agents; Z88.8 Allergy status to other drugs, medicaments and biological substances; Z79.899 Other long term (current) drug therapy; Z87.891 Personal history of nicotine dependence
CPT/HCPCS: 96372; 99284; J3410; 99283

== ENCOUNTER 2025-02-16 07:00 | Day surgery (SDC) | payer BC, MEDICARE ==
[2025-02-16] MEDS: Tetracaine HCl/PF 0.5% 4 ML Bottle EYEBOTH SCH (07:05)
[2025-02-16] MEDS: Cefuroxime 10 MG/ML SYRINGE EYELF SCH (07:05)
[2025-02-16] MEDS: Lidocaine 1% PF 2 ML SDV INJECT SCH (07:05)
[2025-02-16] MEDS: Polymyxin B/Trimethoprim 10 ML Bottle EYELF SCH (07:06)
[2025-02-16] MEDS: Pilocarpine 4% Ophth Soln 15 ML Bot EYELF SCH (07:06)
[2025-02-16 07:11] VITALS: BP 156/70; PULSE 81
[2025-02-16] MEDS: Tropicamide 1% Ophth Soln 3 ML Bottle EYELF SCH (07:28)
== END 2025-02-16 08:36 ==
LOC: JD.SDS 07:00
PROVIDERS: ATTEND Ophthalmology
DX: E11.36 Type 2 diabetes mellitus with diabetic cataract (principal); H25.812 Combined forms of age-related cataract, left eye; H35.363 Drusen (degenerative) of macula, bilateral; H16.223 Keratoconjunctivitis sicca, not specified as Sjogren's, bilateral; Z96.1 Presence of intraocular lens; Z79.84 Long term (current) use of oral hypoglycemic drugs; Z79.899 Other long term (current) drug therapy
CPT/HCPCS: A9270-GY; J0697; J3490; V2632